=== PATIENT | female | born 1980 ===

== ENCOUNTER 2020-06-18 13:17 | Outpatient (REF) | payer OTHER, SELFPAY | END 2020-06-18 13:18 | disposition home or self-care (01) | LOC: HO.LAB 13:17 | PROVIDERS: Visit Provider Nurse Practitioner Family | DX: Z20.828 Contact with and (suspected) exposure to other viral communicable diseases (principal); J01.10 Acute frontal sinusitis, unspecified | CPT/HCPCS: U0003 ==

== ENCOUNTER → 2020-06-24 13:23 | Outpatient (BNVA) | payer OTHER, SELFPAY | PROVIDERS: PCP Internal Medicine; Visit Provider Dietitian, Registered | DX: Z76.89 Persons encountering health services in other specified circumstances (principal) ==

== ENCOUNTER → 2020-07-14 12:56 | Outpatient (BNVA) | payer OTHER, SELFPAY | PROVIDERS: PCP Internal Medicine; Visit Provider Surgery | DX: R22.0 Localized swelling, mass and lump, head (principal) | CPT/HCPCS: 99202 ==

== ENCOUNTER → 2020-07-31 12:40 | Outpatient (BNVA) | payer OTHER, SELFPAY | PROVIDERS: PCP Internal Medicine; Visit Provider Dietitian, Registered | DX: Z76.89 Persons encountering health services in other specified circumstances (principal) ==

== ENCOUNTER → 2020-08-28 12:49 | Outpatient (BNVA) | payer OTHER, SELFPAY | PROVIDERS: PCP Nurse Practitioner Family; Visit Provider Dietitian, Registered ==

== ENCOUNTER 2020-09-03 15:46 | Outpatient (REF) | payer OTHER, SELFPAY | END 2020-09-03 15:47 | disposition home or self-care (01) | LOC: HO.LAB 15:46 | PROVIDERS: Visit Provider Nurse Practitioner Family | DX: R30.0 Dysuria (principal) | CPT/HCPCS: 87086 ==

== ENCOUNTER → 2020-09-29 13:22 | Outpatient (BNVA) | payer OTHER, SELFPAY | PROVIDERS: PCP Internal Medicine; Visit Provider Dietitian, Registered ==

== ENCOUNTER 2020-11-06 10:19 | Outpatient (REF) | payer OTHER, SELFPAY ==
[2020-11-06 12:26] LABS: Anion Gap 11 (12-20); Blood Urea Nitrogen 14 mg/dL (9-16); Calcium 9.2 mg/dL (8.4-10.2); Carbon Dioxide 26 mmol/L (22-29); Chloride 105 mmol/L (96-108); Cholesterol 174 mg/dL; Estimated Glomerular Filt Rate > 60; Glucose Fasting 77 mg/dL (60-99); HDL Cholesterol 59 mg/dL; LDL Cholesterol Calculated 108 mg/dl; Potassium 4.6 mmol/L (3.3-5.1); Sodium 137 mmol/L (135-145); Triglycerides 37 mg/dL
== END 2020-11-06 10:20 | disposition home or self-care (01) ==
LOC: HO.HMGCLDS 10:19
PROVIDERS: PCP Internal Medicine; Visit Provider Internal Medicine
DX: Z00.01 Encounter for general adult medical examination with abnormal findings (principal); I10 Essential (primary) hypertension; E66.01 Morbid (severe) obesity due to excess calories
CPT/HCPCS: 36415; 80048; 80061

== ENCOUNTER → 2020-11-17 13:29 | Outpatient (BNVA) | payer OTHER, SELFPAY | PROVIDERS: PCP Internal Medicine; Visit Provider Dietitian, Registered | DX: E66.01 Morbid (severe) obesity due to excess calories (principal); I10 Essential (primary) hypertension | CPT/HCPCS: 97803 ==

== ENCOUNTER → 2020-12-17 12:44 | Outpatient (BNVA) | payer OTHER, SELFPAY | PROVIDERS: PCP Internal Medicine; Referring Provider Internal Medicine; Visit Provider Surgery | DX: R22.0 Localized swelling, mass and lump, head (principal) | CPT/HCPCS: 99212 ==

== ENCOUNTER 2020-12-18 15:23 | Outpatient (REF) | payer OTHER, SELFPAY ==
--- NOTE | ~2020-12-18 | MM_ITS ---
EXAMINATION: MM SCREENING DIGITAL BREAST TOMOSYNTHESIS, BILATERAL CLINICAL INFORMATION: Screening. Asymptomatic. The lifetime risk of breast cancer based on the Tyrer-Cuzick Model is 8.2%. COMPARISON: Mammography: None TECHNIQUE: Digital breast tomosynthesis is performed in both the craniocaudal and mediolateral oblique views along with computer-aided detection (CAD). Synthesized 2D images are generated from the tomosynthesis. FINDINGS: The breasts are heterogeneously dense, which may obscure small masses (ACR BI-RADS breast composition Category c). There are no significant masses, abnormal calcifications, or other abnormalities. MM/MM tomosynthesis screening BI IMPRESSION: There are no significant changes from prior study. ASSESSMENT: BI-RADS 1: Negative RECOMMENDATION: Routine annual mammography screening. This patient's information was entered into a reminder system with a target due date for their next mammogram.
== END 2020-12-18 15:24 | disposition home or self-care (01) ==
LOC: HO.MAMMO 15:23
PROVIDERS: PCP Internal Medicine; Visit Provider Internal Medicine
DX: Z12.31 Encounter for screening mammogram for malignant neoplasm of breast (principal)
CPT/HCPCS: 77063; 77067

== ENCOUNTER → 2020-12-23 13:04 | Outpatient (BNVA) | payer OTHER, SELFPAY | PROVIDERS: PCP Internal Medicine; Visit Provider Dietitian, Registered | DX: Z13.89 Encounter for screening for other disorder (principal) | CPT/HCPCS: 97803 ==

== ENCOUNTER 2020-12-24 09:12 | Outpatient (REF) | payer OTHER, SELFPAY ==
[2020-12-28 08:36] LABS: HPV mRNA E6/E7 rflx Not Detected (Not Detected)
== END 2020-12-24 09:13 | disposition home or self-care (01) ==
LOC: HO.LAB 09:12
PROVIDERS: PCP Internal Medicine; Visit Provider Obstetrics & Gynecology
DX: Z01.411 Encounter for gynecological examination (general) (routine) with abnormal findings (principal); N85.2 Hypertrophy of uterus
CPT/HCPCS: 87624; 88142

== ENCOUNTER 2020-12-30 14:37 | Outpatient (REF) | payer OTHER, SELFPAY ==
[2020-12-31 09:16] LABS: HBS Num1 0.18 mIU/mL (0-7.99); HIV AB/AG Nonreactive (Nonreactive); HIV Num 1 0.06 S/CO (0.00-0.99); ~Hepatitis B Surface Antibody NONREACTIVE (Nonreactive)
[2020-12-31 09:56] LABS: HBc Num1 0.09 S/CO (0.00-0.79); HBsAGNum1 0.21 S/CO (0.00-0.99); Hepatitis B Core Antibody Nonreactive (Nonreactive); Hepatitis B Surface Antigen Negative (Negative); ~HepC Num1 0.09 S/CO (0.00-0.79); ~Hepatitis C Antibody Nonreactive (Nonreactive)
== END 2020-12-30 14:38 | disposition home or self-care (01) ==
LOC: HO.HMGCLDS 14:37
PROVIDERS: PCP Internal Medicine; Visit Provider Internal Medicine
DX: Z01.84 Encounter for antibody response examination (principal); Z11.3 Encounter for screening for infections with a predominantly sexual mode of transmission; Z11.4 Encounter for screening for human immunodeficiency virus [HIV]; Z20.5 Contact with and (suspected) exposure to viral hepatitis
CPT/HCPCS: 36415; 86704; 86706; 86803; 87340; 87389

== ENCOUNTER 2021-01-01 11:01 | Outpatient (REF) | payer OTHER, SELFPAY ==
--- NOTE | ~2021-01-01 | US_ITS ---
EXAMINATION: US PELVIS AND TRANSVAGINAL CLINICAL INFORMATION: Hypertrophy of the uterus COMPARISON: None TECHNIQUE: Transabdominal and transvaginal ultrasound of the pelvis is performed. FINDINGS: On transabdominal ultrasound, the uterus is anteverted and anteflexed measuring 9.0 cm in length, 4.7 cm in AP and 5.6 cm in transverse dimension. The endometrial thickness measures 1.1 cm. There are small non shadowing echogenic polyps in the fundal endometrial canal measuring 0.60 x 0.44 x 0.50 cm. The uterus is homogeneous without any focal lesion. There are small anechoic nabothian cysts seen in the cervix Right ovary measures 3.4 x 2.9 x 2.6 cm and volume 13.87 cm. It appears unremarkable. The left ovary measures 3.66 x 2.06 x 3.13 cm and volume 12.36 cm. There is no free fluid in the cul-de-sac. US/US pelvic and transvaginal IMPRESSION: 1. Small endometrial polyp. 2. Small nabothian cysts in the cervix. 3. Ovaries are unremarkable.
== END 2021-01-01 11:02 | disposition home or self-care (01) ==
LOC: HO.US 11:01
PROVIDERS: PCP Internal Medicine; Visit Provider Obstetrics & Gynecology
DX: N85.2 Hypertrophy of uterus (principal)
CPT/HCPCS: 76830; 76856

== ENCOUNTER 2021-01-08 13:35 | Outpatient (REF) | payer OTHER, SELFPAY ==
[2021-01-08 13:48] VITALS: BP 150/87; PULSE 107; RESP 16; TEMP 37.2; O2SAT 99
== END 2021-01-08 13:36 | disposition home or self-care (01) ==
LOC: HO.MS 13:35
PROVIDERS: PCP Internal Medicine; Visit Provider Surgery
DX: R22.0 Localized swelling, mass and lump, head (principal); Z53.9 Procedure and treatment not carried out, unspecified reason

== ENCOUNTER → 2021-01-15 10:37 | Outpatient (BNVA) | payer OTHER, SELFPAY | PROVIDERS: PCP Internal Medicine; Visit Provider Obstetrics & Gynecology ==

== ENCOUNTER 2021-01-29 11:57 | Outpatient (REF) | payer OTHER, SELFPAY ==
[2021-01-29 12:39] VITALS: BP 159/94; PULSE 118; RESP 16; TEMP 36.7; O2SAT 100; BMI 41.1
[2021-01-29 13:05] VITALS: BP 158/64; PULSE 89; RESP 16; O2SAT 99
--- NOTE | 2021-01-29 13:20 | W.PM.OPN ---
Operative Note Operative Note Date of Service: 01/29/21 Narrative: Preop diagnosis: Large scalp cyst Postop diagnosis: Large scalp cyst Procedure: Excision a large scalp cyst under local anesthesia surgeon: Juan Manuel Garriod MD The patient is a 40-year-old female with a large cystic mass on the scalp on the left parieto-occipital area. She understood the technique of excision under local anesthesia. She was aware of the risks, benefits, and alternatives She was brought to the minor procedure room and placed in prone position with the head turned to the left to expose the area of the cyst. The area of the scalp around the cyst was prepped and draped. The cyst measured diameter. Lidocaine 1% was used to infiltrate the area for local anesthesia. I made an incision on the skin overlying the large cyst using blade 15. And this was carried down through the full-thickness of the skin and part of subcutaneous layer. Immediately, a well encapsulated cystic mass was visualized. I sharply dissected the cyst capsule off of the rest of the subcutaneous layer all the way posteriorly until this was delivered. This was sent as specimen. There was excessive redundant skin after excision of this large cyst so I trimmed this with scissors. I closed the incision with full-thickness nylon 3-0 interrupted sutures. Bacitracin was then applied She tolerated procedure well. There were no complications noted. She was given wound care instructions and will be seen in the office for removal of sutures.
--- NOTE | 2021-01-29 13:24 | PM.OP ---
Brief Operative Note Date of Service: 01/29/21 Pre-op diagnosis: Large scalp cyst Post-op diagnosis: same Procedure: excision of large scalp cyst under local anesthesia Surgeon: Juan Manuel Garrido MD Anesthesia: local Was an Financial Processing Clerk used for this Procedure?: No Estimated blood loss (mL): 3 Pathology: other ( scalp cyst) Condition: stable Disposition: other ( home)
== END 2021-01-29 11:58 | disposition home or self-care (01) ==
LOC: HO.MS 11:57
PROVIDERS: PCP Internal Medicine; Visit Provider Surgery
PROC: (CPT 11424; principal; 2021-01-29 12:50)
DX: L72.11 Pilar cyst (principal); I10 Essential (primary) hypertension; Z79.899 Other long term (current) drug therapy; Z88.8 Allergy status to other drugs, medicaments and biological substances; Z87.891 Personal history of nicotine dependence
CPT/HCPCS: 11424; 88304

== ENCOUNTER → 2021-02-10 09:18 | Outpatient (BNVA) | payer OTHER, SELFPAY | PROVIDERS: PCP Internal Medicine; Referring Provider Internal Medicine; Visit Provider Surgery | DX: Z48.817 Encounter for surgical aftercare following surgery on the skin and subcutaneous tissue (principal); Z87.2 Personal history of diseases of the skin and subcutaneous tissue | CPT/HCPCS: 99211 ==

== ENCOUNTER 2021-02-12 14:08 | Outpatient (REF) | payer OTHER, SELFPAY ==
[2021-02-12 16:33] LABS: Hematocrit 33.9 % (37-47); Hemoglobin 10.9 g/dl (12.0-16.0)
== END 2021-02-12 14:09 | disposition home or self-care (01) ==
LOC: HO.HMGCLDS 14:08
PROVIDERS: PCP Internal Medicine; Visit Provider Internal Medicine
DX: R53.83 Other fatigue (principal)
CPT/HCPCS: 36415; 85014; 85018

== ENCOUNTER → 2021-02-18 13:23 | Outpatient (BNVA) | payer OTHER, SELFPAY | PROVIDERS: PCP Internal Medicine; Visit Provider Obstetrics & Gynecology | DX: N84.0 Polyp of corpus uteri (principal) | CPT/HCPCS: 99212 ==

== ENCOUNTER 2021-03-13 09:26 | Day surgery (SDC) | payer OTHER, SELFPAY ==
--- NOTE | 2021-02-05 09:08 | HO.ANESPROP2 ---
HPI - Anesthesia Eval Consult details Narrative: 40yo F for D&C Diagnostic Hysteroscopy,poss polypectomy/myomectomy PMFSH Active Problems Active Problems: All Active Problems (Updated 01/29/21 @ 13:26 by Edd Avelar RN) Enlarged uterus (Acute) Endometrial polyp (Acute) Allergic rhinitis (Acute) Morbid obesity due to excess calories (Acute) Essential hypertension (Acute) GERD (gastroesophageal reflux disease) (Acute) Past Medical History Medical History (Updated 01/29/21 @ 13:26 by Edd Avelar RN) Allergic rhinitis Asthma Essential hypertension GERD (gastroesophageal reflux disease) Morbid obesity due to excess calories Family History Family History Father Colon cancer Mother HTN (hypertension) Stroke Brother Encephalitis Brother No problems noted. Daughter No problems noted. Daughter No problems noted. Maternal Uncle History of liver cancer Surgical History Surgical History History of excision of mass History of tubal ligation Social History Social History Alcohol intake: current Alcohol intake frequency: holidays/special occasions only Patient Tobacco Use Status: Former Tobacco user Years Smoked: 2 Meds Allergies Allergy/AdvReac Type Severity Reaction Status Date / Time montelukast [From Singulair] Allergy Unknown Anaphylaxis, Verified 01/15/21 10:37 rash peanut Allergy Anaphylaxis Verified 01/15/21 10:37 strawberry Allergy rash Verified 01/15/21 10:37 wheat Allergy rash Verified 01/15/21 10:37 milk AdvReac rash Verified 01/15/21 10:37 soy AdvReac Abdominal Verified 01/15/21 10:37 Pain eggs Allergy rash Uncoded 09/05/20 15:04 Home Medications Medication Instructions Recorded Confirmed Last Taken Type albuterol sulfate 90 mcg/actuation 1 puff PO Q4H PRN 05/30/20 12/30/20 Unknown History aerosol inhaler hydroxyzine HCl 25 mg tablet 25 mg PO TID 12/30/20 12/30/20 Unknown History Exam Exam Date and Time: February 05, [id number] Assessment and Plan Assessment Anesthesia Assessment: Chart Reviewed
[2021-03-05 14:41] VITALS: BMI 41.1
--- NOTE | 2021-03-12 08:41 | P.CONAN_ITS ---
Documented by User: Aracely Garnica NP 03/12/21 08:42 HPI - Anesthesia Eval Consult details Narrative: 40yo F for D&C Hysteroscopy, Poss Polypectomy, Poss Myomectomy PMFSH Active Problems Active Problems: All Active Problems (Updated 02/13/21 @ 23:51 by Teresa Maddox MD) Anemia (Acute) Enlarged uterus (Acute) Endometrial polyp (Acute) Allergic rhinitis (Acute) Morbid obesity due to excess calories (Acute) Essential hypertension (Acute) GERD (gastroesophageal reflux disease) (Acute) Past Medical History Medical History Allergic rhinitis Anemia Asthma Essential hypertension GERD (gastroesophageal reflux disease) Morbid obesity due to excess calories Family History Family History Father Colon cancer Mother HTN (hypertension) Stroke Brother Encephalitis Brother No problems noted. Daughter No problems noted. Daughter No problems noted. Maternal Uncle History of liver cancer Surgical History Surgical History History of excision of mass History of tubal ligation Social History Social History Alcohol intake: current Alcohol intake frequency: holidays/special occasions only Patient Tobacco Use Status: Former Tobacco user Years Smoked: 2 Advance Directives: No Advance Directives Information Provided: Yes Meds Allergies Allergy/AdvReac Type Severity Reaction Status Date / Time montelukast [From Singulair] Allergy Unknown Anaphylaxis, Verified 02/10/21 09:25 rash peanut Allergy Anaphylaxis Verified 02/10/21 09:25 strawberry Allergy rash Verified 02/10/21 09:25 wheat Allergy rash Verified 02/10/21 09:25 milk AdvReac rash Verified 02/10/21 09:25 soy AdvReac Abdominal Verified 02/10/21 09:25 Pain eggs Allergy rash Uncoded 09/05/20 15:04 Home Medications Medication Instructions Recorded Confirmed Last Taken Type albuterol sulfate 90 mcg/actuation 1 puff PO Q4H PRN 05/30/20 02/10/21 Unknown History aerosol inhaler hydroxyzine HCl 25 mg tablet 25 mg PO TID 12/30/20 02/10/21 Unknown History Exam Exam Date and Time: March 12, 2021 0841 Height,Weight and Vital Signs: Height 5 ft 4 in Weight 108.862 kg Pertinent Lab Results Pertinent Lab Results: Laboratory Tests 11/06/20 02/12/21 10:27 14:16 Hgb 10.9 L Hct 33.9 L Sodium 137 Potassium 4.6 Chloride 105 Carbon Dioxide 26 BUN 14 Creatinine 0.75 Assessment and Plan Assessment Anesthesia Assessment: Chart Reviewed Documented by User: Connie Reardon MD 03/13/21 10:21 [facility] Past Medical History Medical History Allergic rhinitis Anemia Asthma Essential hypertension GERD (gastroesophageal reflux disease) Morbid obesity due to excess calories Family History Family History Father Colon cancer Mother HTN (hypertension) Stroke Brother Encephalitis Brother No problems noted. Daughter No problems noted. Daughter No problems noted. Maternal Uncle History of liver cancer Family history of problems with anesthesia: No Surgical History Surgical History History of excision of mass History of tubal ligation History of Problems with Anesthesia: No Social History Social History Alcohol intake: current Alcohol intake frequency: holidays/special occasions only Patient Tobacco Use Status: Former Tobacco user Years Smoked: 2 Advance Directives: No Advance Directives Information Provided: Yes Meds Allergies Allergy/AdvReac Type Severity Reaction Status Date / Time montelukast [From Singulair] Allergy Unknown Anaphylaxis, Verified 02/10/21 09:25 rash peanut Allergy Anaphylaxis Verified 02/10/21 09:25 strawberry Allergy rash Verified 02/10/21 09:25 wheat Allergy rash Verified 02/10/21 09:25 milk AdvReac rash Verified 02/10/21 09:25 soy AdvReac Abdominal Verified 02/10/21 09:25 Pain eggs Allergy rash Uncoded 09/05/20 15:04 Home Medications Medication Instructions Recorded Confirmed Last Taken Type albuterol sulfate 90 mcg/actuation 1 puff PO Q4H PRN 05/30/20 02/10/21 Unknown History aerosol inhaler hydroxyzine HCl 25 mg tablet 25 mg PO TID 12/30/20 02/10/21 Unknown History Exam Airway Mallampati Class: II TM Dist: >3cm Neck ROM: Full Assessment and Plan Assessment Anesthesia Assessment: Anesthesia Plan Discussed Final Anesthetic Review Family History of Problems with Anesthesia: No History of Problems with Anesthesia: No NPO: Yes ASA Class: III Final Preanesthetic Review: No Changes in Pt Med Stat, Meds/Allgs Chart Reviewed, Consent Obtained/Reviewed and Anes Risks/Benef Reviewed Patient Risk: Low Procedure Risk: Low Assessment/Block/Sedation in SS: Assess/Block/Sedation-SS Anesthetic Plan Anesthetic Plan: GA and MAC: Disposition: Standard PACU
--- NOTE | 2021-03-13 09:41 | MHC.SHP ---
Pre-Procedural Eval Section A Date of Service: 03/13/21 The patient is an INPATIENT: No Changes since office visit: No Cold of Flu in the past 2 weeks, No New Medical Problems, No Changes in Medication and No Patient answered all questions The History & Physical has been completed within 30 days and I have reviewed it.: Yes Section B Chief Complaint: polyp of corpus uteri Allergies: Allergies Allergy/AdvReac Type Severity Reaction Status Date / Time montelukast [From Singulair] Allergy Unknown Anaphylaxis, Verified 02/10/21 09:25 rash peanut Allergy Anaphylaxis Verified 02/10/21 09:25 strawberry Allergy rash Verified 02/10/21 09:25 wheat Allergy rash Verified 02/10/21 09:25 milk AdvReac rash Verified 02/10/21 09:25 soy AdvReac Abdominal Verified 02/10/21 09:25 Pain eggs Allergy rash Uncoded 09/05/20 15:04 Plan Diagnosis/Plan: Unchanged I have reviewed the history and physical and performed a pertinent physical examination on my patient. No changes have occurred unless specified.
[2021-03-13 09:46] VITALS: BP 129/58; PULSE 125; RESP 16; TEMP 37.1; O2SAT 98
[2021-03-13 09:56] LABS: UPreg QC Valid YES; Urine Pregnancy NEGATIVE (NEGATIVE)
[2021-03-13] MEDS: Lactated Ringers 1,000 ML 100 ML IVCONT (09:58)
--- NOTE | 2021-03-13 10:37 | P.BOP_ITS ---
Brief Operative Note Date of Service: 03/13/21 Pre-op diagnosis: Endometrial polyp by ultrasound Post-op diagnosis: other (Normal endometrial cavity no evidence of pathology) Procedure: Hysteroscopy D&C Surgeon: Javan Harris MD Anesthesia: MAC Was an Associate Account Manager used for this Procedure?: No Estimated blood loss (mL): 0 Pathology: other (Endometrial Scrapping. ) Condition: stable Disposition: PACU
--- NOTE | 2021-03-13 10:38 | W.PM.OPN ---
Operative Note Operative Note Date of Service: 03/13/21 Narrative: Preop Diagnosis: Endometrial polyp by US Operation: Diagnostic Hysteroscopy, Dilataion & Curettage Post Op Diagnosis: Normal endometrial cavity no evidence of pathology QBL: Minimal Anesthesia: MAC Surgeon: Javan Harris MD Gasoline Catalyst Operator: None Complication: None Pathology: Endometrial Scrapings Complication: None Pathology: Endometrial Scrapings Procedure: The patient was put in the dorsal lithotomy position, scrubbed, and draped in the usual manner. A sterile speculum was inserted in the patient's vagina. The anterior lip of the cervix was grasped with a single tooth tenaculum. The cervix was dilated up to 5 mm, then the scope was inserted in the patient's uterus. Inspection revealed normal endometrial cavity no evidence of pathology, this was followed by sharp curettings moderate amount of tissue was retrieved. At the end of the procedure, all instruments were taken out of the patient uterine and vaginal cavity. The single tooth tenaculum was removed and homeostasis was assured using pressure,. The patient tolerated the procedure well and was transferred to the PACU in a stable condition.
[2021-03-13 10:44] VITALS: BP 112/60; PULSE 106; RESP 16; TEMP 36.1; O2SAT 99
[2021-03-13 10:59] VITALS: BP 110/59; PULSE 88; RESP 16; TEMP 36.1; O2SAT 99
== END 2021-03-13 11:38 | disposition home or self-care (01) ==
PROVIDERS: PCP Internal Medicine; Visit Provider Obstetrics & Gynecology
PROC: 0UDB8ZZ Extraction of Endometrium, Via Natural or Artificial Opening Endoscopic (ICD-10-PCS; CPT 58558; principal; 2021-03-13 11:10)
DX: N84.0 Polyp of corpus uteri (principal); J45.909 Unspecified asthma, uncomplicated; D64.9 Anemia, unspecified; I10 Essential (primary) hypertension; E66.01 Morbid (severe) obesity due to excess calories; Z68.41 Body mass index [BMI] 40.0-44.9, adult; Z87.891 Personal history of nicotine dependence; Z88.8 Allergy status to other drugs, medicaments and biological substances; Z79.899 Other long term (current) drug therapy
CPT/HCPCS: 58558; 81025; 88305; J1100; J2250; J2405; J3010

== ENCOUNTER 2021-05-18 12:41 | Outpatient (REF) | payer OTHER, SELFPAY ==
[2021-05-18 13:44] LABS: MANUAL DIFF FLAG NO
[2021-05-18 13:47] LABS: Basophils Percent Auto 0.3 % (0-2); Eosinophils Absolute Auto 0.1 X10*3/uL (0.0-0.4); Eosinophils Percent Auto 0.8 % (0-4); Hematocrit 35.3 % (37-47); Hemoglobin 11.4 g/dl (12.0-16.0); Imm Gran Abs Auto 0.03 X10*3/uL (0.00-0.03); Imm Gran Pct Auto 0.4 % (0.0-0.4); Lymphocytes Absolute Auto 2.1 X10*3/uL (1.2-4.9); Lymphocytes Percent Auto 28.1 % (20-40); Mean Corpuscular HGB Conc 32.3 g/dl (31.0-35.0); Mean Corpuscular Hemoglobin 27.1 pg (27.0-33.0); Mean Corpuscular Volume 83.8 fL (80-98); Monocytes Absolute Auto 0.6 X10*3/uL (0.1-1.2); Monocytes Percent Auto 8.2 % (2-11); Neutrophils Absolute Auto 4.6 X10*3/uL (2.0-8.3); Neutrophils Percent Auto 62.2 % (45-73); Platelet Count 381 X10*3/uL (160-400); Red Blood Count 4.21 X10*6/uL (4.20-5.50); Red Cell Distribution Width 14.4 % (11.0-16.0); White Blood Count 7.5 X10*3/uL (4.8-10.8)
[2021-05-18 14:10] LABS: Iron 24 mcg/dL (30-160); Percent Iron Saturation 7 % (15-50); Total Iron Binding Capacity 330 mcg/dL (228-428); Unsaturated Iron Binding 306 ug/dL
[2021-05-18 14:33] LABS: Ferritin 14 ng/mL (10-250)
== END 2021-05-18 12:42 | disposition home or self-care (01) ==
LOC: HO.HMGCLDS 12:41
PROVIDERS: PCP Internal Medicine; Visit Provider Internal Medicine
DX: D64.9 Anemia, unspecified (principal)
CPT/HCPCS: 36415; 82728; 83540; 85025

== ENCOUNTER 2021-06-08 | Outpatient (REF) | payer OTHER, SELFPAY ==
[2021-06-09 14:04] LABS: Influenza A PCR NEGATIVE (Negative); Influenza B PCR NEGATIVE (Negative); Resp Syncy Virus RNA Qual PCR NEGATIVE (Negative); SARS COV2 PCR INHOUSE NEGATIVE (Negative)
== END 2021-06-08 00:01 | disposition home or self-care (01) ==
LOC: HO.LNP
PROVIDERS: Visit Provider Internal Medicine
DX: Z20.822 Contact with and (suspected) exposure to COVID-19 (principal); R43.9 Unspecified disturbances of smell and taste
CPT/HCPCS: 0241U

== ENCOUNTER 2021-06-09 12:36 | Outpatient (REF) | payer OTHER, SELFPAY | END 2021-06-09 12:37 | disposition home or self-care (01) | LOC: HO.LNP 12:36 | PROVIDERS: Visit Provider Internal Medicine | DX: Z13.89 Encounter for screening for other disorder (principal) ==

== ENCOUNTER 2021-07-10 13:31 | Outpatient (REF) | payer OTHER, SELFPAY ==
[2021-07-10 14:19] LABS: MANUAL DIFF FLAG NO
[2021-07-10 14:25] LABS: Basophils Percent Auto 0.4 % (0-2); Eosinophils Absolute Auto 0.1 X10*3/uL (0.0-0.4); Eosinophils Percent Auto 0.7 % (0-4); Hematocrit 35.9 % (37.0-47.0); Hemoglobin 11.4 g/dl (12.0-16.0); Imm Gran Abs Auto 0.02 X10*3/uL (0.00-0.03); Imm Gran Pct Auto 0.2 % (0.0-0.4); Lymphocytes Absolute Auto 2.5 X10*3/uL (1.2-4.9); Lymphocytes Percent Auto 29.7 % (20-40); Mean Corpuscular HGB Conc 31.8 g/dl (31.0-35.0); Mean Corpuscular Hemoglobin 27.3 pg (27.0-33.0); Mean Corpuscular Volume 86.1 fL (80.0-98.0); Mean Platelet Volume 9.7 fL (9.4-12.3); Monocytes Absolute Auto 0.7 X10*3/uL (0.1-1.2); Monocytes Percent Auto 8.5 % (2-11); Neutrophils Percent Auto 60.5 % (45-73); Platelet Count 368 X10*3/uL (160-400); Red Blood Count 4.17 X10*6/uL (4.20-5.50); White Blood Count 8.3 X10*3/uL (4.8-10.8)
[2021-07-10 14:52] LABS: Iron 34 mcg/dL (30-160); Percent Iron Saturation 11 % (15-50); Total Iron Binding Capacity 308 mcg/dL (228-428); Unsaturated Iron Binding 274 ug/dL
== END 2021-07-10 13:32 | disposition home or self-care (01) ==
LOC: HO.HMGCLDS 13:31
PROVIDERS: PCP Internal Medicine; Visit Provider Internal Medicine
DX: D50.9 Iron deficiency anemia, unspecified (principal)
CPT/HCPCS: 36415; 83540; 85025

== ENCOUNTER 2021-10-30 09:51 | Outpatient (REF) | payer OTHER, SELFPAY ==
[2021-10-30 11:43] LABS: MANUAL DIFF FLAG NO
[2021-10-30 11:52] LABS: Basophils Percent Auto 0.5 % (0-2); Eosinophils Absolute Auto 0.1 X10*3/uL (0.0-0.4); Eosinophils Percent Auto 1.4 % (0-4); Hematocrit 37.7 % (37.0-47.0); Hemoglobin 12.2 g/dl (12.0-16.0); Imm Gran Abs Auto 0.03 X10*3/uL (0.00-0.03); Imm Gran Pct Auto 0.5 % (0.0-0.4); Lymphocytes Absolute Auto 2.1 X10*3/uL (1.2-4.9); Lymphocytes Percent Auto 34.9 % (20-40); Mean Corpuscular HGB Conc 32.4 g/dl (31.0-35.0); Mean Corpuscular Hemoglobin 27.7 pg (27.0-33.0); Mean Corpuscular Volume 85.7 fL (80.0-98.0); Mean Platelet Volume 9.8 fL (9.4-12.3); Monocytes Absolute Auto 0.4 X10*3/uL (0.1-1.2); Monocytes Percent Auto 7.2 % (2-11); Neutrophils Absolute Auto 3.3 x10*3/uL (2.0-8.3); Neutrophils Percent Auto 55.5 % (45-73); Platelet Count 389 X10*3/uL (160-400); Red Cell Distribution Width 13.7 % (11.0-16.0); White Blood Count 5.9 X10*3/uL (4.8-10.8)
[2021-10-30 12:03] LABS: Alanine Aminotransferase 45 U/L (0-31); Anion Gap 10 (12-20); Aspartate Amino Transferase 21 U/L (5-31); Blood Urea Nitrogen 16 mg/dL (9-16); Calcium 9.3 mg/dL (8.4-10.2); Carbon Dioxide 28 mmol/L (22-29); Chloride 105 mmol/L (96-108); Cholesterol 182 mg/dL; Estimated Glomerular Filt Rate > 60; Glucose Fasting 78 mg/dL (60-99); HDL Cholesterol 51 mg/dL; Iron 48 mcg/dL (30-160); LDL Cholesterol Calculated 121 mg/dl; Percent Iron Saturation 15 % (15-50); Sodium 138 mmol/L (135-145); Total Iron Binding Capacity 310 mcg/dL (228-428); Triglycerides 50 mg/dL; Unsaturated Iron Binding 262 ug/dL
== END 2021-10-30 09:52 | disposition home or self-care (01) ==
LOC: HO.HMGCLDS 09:51
PROVIDERS: PCP Internal Medicine; Visit Provider Internal Medicine
DX: D50.9 Iron deficiency anemia, unspecified (principal); E66.01 Morbid (severe) obesity due to excess calories; I10 Essential (primary) hypertension; K21.9 Gastro-esophageal reflux disease without esophagitis
CPT/HCPCS: 36415; 80048; 80061; 83540; 84450; 84460; 85025

== ENCOUNTER 2022-01-14 11:36 | Outpatient (REF) | payer OTHER, SELFPAY ==
[2022-01-17 18:06] LABS: TS Negative Control Passed; TS Panel A 2; TS Panel B 0; TS Positive Control Passed; TSpotTB Negative (Negative)
== END 2022-01-14 11:37 | disposition home or self-care (01) ==
LOC: HO.HMGCLDS 11:36
PROVIDERS: PCP Internal Medicine; Visit Provider Internal Medicine
DX: Z11.1 Encounter for screening for respiratory tuberculosis (principal)
CPT/HCPCS: 36415; 86481

== ENCOUNTER 2022-05-06 08:35 | Outpatient (REF) | payer OTHER, SELFPAY ==
[2022-05-06 10:57] LABS: MANUAL DIFF FLAG NO
[2022-05-06 11:11] LABS: Basophils Percent Auto 0.7 % (0-2); Eosinophils Absolute Auto 0.1 X10*3/uL (0.0-0.4); Eosinophils Percent Auto 1.7 % (0-4); Hematocrit 36.3 % (37.0-47.0); Hemoglobin 11.6 g/dl (12.0-16.0); Imm Gran Abs Auto 0.01 X10*3/uL (0.00-0.03); Imm Gran Pct Auto 0.2 % (0.0-0.4); Lymphocytes Absolute Auto 1.6 X10*3/uL (1.2-4.9); Lymphocytes Percent Auto 28.3 % (20-40); Mean Corpuscular Hemoglobin 25.9 pg (27.0-33.0); Mean Platelet Volume 9.9 fL (9.4-12.3); Monocytes Absolute Auto 0.4 X10*3/uL (0.1-1.2); Monocytes Percent Auto 7.5 % (2-11); Neutrophils Absolute Auto 3.6 x10*3/uL (2.0-8.3); Neutrophils Percent Auto 61.6 % (45-73); Platelet Count 412 X10*3/uL (160-400); Red Blood Count 4.48 X10*6/uL (4.20-5.50); Red Cell Distribution Width 14.8 % (11.0-16.0); White Blood Count 5.8 X10*3/uL (4.8-10.8)
[2022-05-06 11:59] LABS: Cholesterol 181 mg/dL; Glucose Fasting 79 mg/dL (60-99); HDL Cholesterol 57 mg/dL; LDL Cholesterol Calculated 114 mg/dl; TSH reflex Free T4 1.17 uIU/mL (0.32-4.0); Triglycerides 50 mg/dL; Vitamin D 25-OH Total 19.5 ng/mL (>30)
== END 2022-05-06 08:36 | disposition home or self-care (01) ==
LOC: HO.HMGCLDS 08:35
PROVIDERS: PCP Internal Medicine; Visit Provider Internal Medicine
DX: Z00.01 Encounter for general adult medical examination with abnormal findings (principal); E66.01 Morbid (severe) obesity due to excess calories; R53.83 Other fatigue; I10 Essential (primary) hypertension
CPT/HCPCS: 36415; 80061; 82306; 82947; 84443; 85025

== ENCOUNTER 2022-08-26 11:23 | Outpatient (REF) | payer OTHER, SELFPAY ==
[2022-08-26 14:45] LABS: Vitamin D 25-OH Total 22.5 ng/mL (>30)
== END 2022-08-26 11:24 | disposition home or self-care (01) ==
LOC: HO.HMGCLDS 11:23
PROVIDERS: PCP Internal Medicine; Visit Provider Internal Medicine
DX: E55.9 Vitamin D deficiency, unspecified (principal)
CPT/HCPCS: 36415; 82306

== ENCOUNTER 2022-09-09 11:31 | Outpatient (REF) | payer OTHER, SELFPAY ==
[2022-09-09 13:52] LABS: MANUAL DIFF FLAG NO
[2022-09-09 14:01] LABS: Basophils Percent Auto 0.4 % (0-2); Eosinophils Absolute Auto 0.1 X10*3/uL (0.0-0.4); Eosinophils Percent Auto 1.2 % (0-4); Hematocrit 38.6 % (37.0-47.0); Hemoglobin 12.4 g/dl (12.0-16.0); Imm Gran Abs Auto 0.02 X10*3/uL (0.00-0.03); Imm Gran Pct Auto 0.3 % (0.0-0.4); Lymphocytes Absolute Auto 2.1 X10*3/uL (1.2-4.9); Lymphocytes Percent Auto 30.3 % (20-40); Mean Corpuscular HGB Conc 32.1 g/dl (31.0-35.0); Mean Corpuscular Hemoglobin 27.6 pg (27.0-33.0); Mean Platelet Volume 10.1 fL (9.4-12.3); Monocytes Absolute Auto 0.6 X10*3/uL (0.1-1.2); Monocytes Percent Auto 8.2 % (2-11); Neutrophils Absolute Auto 4.1 x10*3/uL (2.0-8.3); Neutrophils Percent Auto 59.6 % (45-73); Platelet Count 349 X10*3/uL (160-400); Red Blood Count 4.49 X10*6/uL (4.20-5.50); Red Cell Distribution Width 14.1 % (11.0-16.0); White Blood Count 6.9 X10*3/uL (4.8-10.8)
[2022-09-09 14:11] LABS: Iron 55 mcg/dL (30-160); Percent Iron Saturation 21 % (15-50); Total Iron Binding Capacity 268 mcg/dL (228-428); Unsaturated Iron Binding 213 ug/dL
== END 2022-09-09 11:32 | disposition home or self-care (01) ==
LOC: HO.HMGCLDS 11:31
PROVIDERS: PCP Internal Medicine; Visit Provider Internal Medicine
DX: Z11.1 Encounter for screening for respiratory tuberculosis (principal); D50.9 Iron deficiency anemia, unspecified
CPT/HCPCS: 36415; 83540; 85025

== ENCOUNTER 2022-09-15 10:54 | Outpatient (REF) | payer OTHER, SELFPAY ==
--- NOTE | ~2022-09-15 | XR_ITS ---
EXAMINATION: XR KNEE, RIGHT CLINICAL INFORMATION: Right knee pain COMPARISON: None TECHNIQUE: Four views of the right knee. FINDINGS: Severe degenerative changes are present in the knee most marked in the lateral compartment and patellofemoral compartment. A joint effusion is present. Large osteophytes are noted arising from the lateral tibial plateau and the lateral femoral condyle as well as the posterior patella. No chondrocalcinosis. No fractures. XR/XR knee RT 4V IMPRESSION: Severe tricompartmental degenerative changes with joint effusion.
== END 2022-09-15 10:55 | disposition home or self-care (01) ==
LOC: HO.HMGCX 10:54
PROVIDERS: PCP Internal Medicine; Visit Provider Nurse Practitioner Family
DX: M23.8X1 Other internal derangements of right knee (principal); M25.461 Effusion, right knee; M25.561 Pain in right knee
CPT/HCPCS: 73564

== ENCOUNTER 2022-12-28 12:39 | Outpatient (REF) | payer OTHER, SELFPAY ==
--- NOTE | ~2022-12-28 | MM_ITS ---
EXAMINATION: MM SCREENING DIGITAL BREAST TOMOSYNTHESIS, BILATERAL CLINICAL INFORMATION: Screening. Asymptomatic. The lifetime risk of breast cancer based on the Tyrer-Cuzick Model is 8%. COMPARISON: Mammography: 12/18/2020 TECHNIQUE: Digital breast tomosynthesis is performed in both the craniocaudal and mediolateral oblique views along with computer-aided detection (CAD). Synthesized 2D images are generated from the tomosynthesis. FINDINGS: There are scattered areas of fibroglandular density (ACR BI-RADS breast composition Category b). There are no significant masses, abnormal calcifications, or other abnormalities. Parenchymal pattern is similar to prior studies. There is no developing density or architectural abnormality. The axilla and skin contours are unremarkable. No significant changes. MM/MM tomosynthesis screening BI IMPRESSION: No mammographic evidence of malignancy. ASSESSMENT: BI-RADS 1: Negative RECOMMENDATION: Routine annual mammography screening. This patient's information was entered into a reminder system with a target due date for their next mammogram.
== END 2022-12-28 12:40 | disposition home or self-care (01) ==
LOC: HO.MAMMO 12:39
PROVIDERS: PCP Internal Medicine; Visit Provider Internal Medicine
DX: Z12.31 Encounter for screening mammogram for malignant neoplasm of breast (principal)
CPT/HCPCS: 77063; 77067

== ENCOUNTER 2023-01-05 10:41 | Outpatient (REF) | payer OTHER, SELFPAY ==
[2023-01-05 14:34] LABS: Syphilis Screen Nonreactive (Nonreactive)
== END 2023-01-05 10:42 | disposition home or self-care (01) ==
LOC: HO.HMGCLDS 10:41
PROVIDERS: PCP Internal Medicine; Visit Provider Nurse Practitioner Family
DX: Z20.2 Contact with and (suspected) exposure to infections with a predominantly sexual mode of transmission (principal)
CPT/HCPCS: 36415; 86780

== ENCOUNTER 2023-03-16 10:38 | Outpatient (AMB) | payer OTHER, SELFPAY ==
[2023-03-16 11:10] VITALS: BP 130/72; PULSE 71; O2SAT 98; BMI 42.7
--- NOTE | 2023-03-16 11:10 | MHC.PC.OV ---
Vital Signs 03/16/23 11:10 Height 5 ft 4 in Weight 249 lb BMI 42.7 BP 130/72 Blood Pressure Location Lt brachial Position Sitting Pulse 71 Pulse Source Pulse Oximeter Pulse Oximetry (%) 98 Intake Visit Reasons: Discuss paperwork for housing Intake Note: pt is here for discussion regarding housing paperwork, states she needs a letter stating she can only live on first floor due to her knee, patient is currently living on 3rd floor. Allergies montelukast [From Singulair] Allergy (Unknown, Verified 03/21/23 15:59) Anaphylaxis, rash peanut Allergy (Verified 03/21/23 15:59) Anaphylaxis strawberry Allergy (Verified 03/21/23 15:59) rash wheat Allergy (Verified 03/21/23 15:59) rash lisinopril Adverse Reaction (Verified 03/21/23 15:59) cough milk Adverse Reaction (Verified 03/21/23 15:59) rash soy Adverse Reaction (Verified 03/21/23 15:59) Abdominal Pain eggs Allergy (Uncoded 03/21/23 15:59) rash seafood Adverse Reaction (Uncoded 03/21/23 15:59) rash Medication List - Last Reconciled 03/16/23 by Teresa Maddox MD albuterol sulfate 90 mcg/actuation 2 inhalations inhalation QID PRN amlodipine 5 mg PO DAILY 90 days cetirizine 10 mg PO DAILY cholecalciferol (vitamin D3) 50 mcg PO DAILY diclofenac sodium 25 mg PO BID PRN 7 days famotidine 40 mg PO DAILY ferrous fumarate 324 mg PO DAILY fluticasone propionate 50 mcg/actuation 1 spray intranasal DAILY PRN hydroxyzine HCl 25 mg PO BID PRN mometasone-formoterol 200-5 mcg/actuation (Dulera) 2 puffs inhalation Q12H 30 days Tobacco use date assessed: 09/09/22 HPI Discuss paperwork for housing HPI Details 42-year-old lady with history of osteoarthritis both knees, right more than the left, has asthma, history of iron deficiency anemia, hypertension and GERD as well as morbid obesity, here today requesting a letter to be written to her landlord, requesting transfer to an apartment on the ground floor or the 1st floor or another single family house within the [facility], as she has difficulty going up and down stairs, due to severe pain in both knees. She already has been referred to orthopedics for further evaluation management [facility] Medical History (Updated 03/21/23 @ 16:07 by Teresa Maddox MD) Allergic rhinitis Asthma Essential hypertension GERD (gastroesophageal reflux disease) Iron deficiency anemia Iron deficiency anemia Moderate asthma with allergic rhinitis Morbid obesity due to excess calories Osteoarthritis of right knee Uncontrolled persistent asthma Vitamin D deficiency Surgical History History of excision of mass History of tubal ligation Family History Father Colon cancer Mother HTN (hypertension) Stroke Brother Encephalitis Substance use disorder Mental health disorder Brother No problems noted. Daughter No problems noted. Daughter No problems noted. 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 Prateek Burkett, Lesia Rockwell, Josiah Hernandez and colleagues, with an educational teresa from [employer]. Review of Systems Const Denies poor appetite and Denies weakness ENT Denies vertigo and Denies dizziness Card Denies chest pain, Denies syncope, Denies irregular heart rhythm, Denies lightheadedness and Denies dyspnea Resp Denies cough and Denies dyspnea GI Denies abdominal pain, Denies dyspepsia, Denies heartburn and Denies nausea Denies hematuria and Denies dysuria Musc Reports as per HPI, Denies joint swelling and Denies limited range of motion Neuro Denies vertigo, Denies dizziness, Denies syncope, Denies focal weakness and Denies weakness Physical exam (Primary Care) Vital Signs: Last Vital Signs Pulse 71 03/16/23 11:10 BP 130/72 03/16/23 11:10 Pulse Ox 98 03/16/23 11:10 BMI result Body Mass Index 42.7 Tobacco/Smoking Status: Tobacco use Status Tobacco use date assessed 09/09/22 03/16/23 11:16 Patient Tobacco Use Status Former Tobacco user 03/16/23 11:16 e-Cigarette/Vaping Use Never Used 03/16/23 11:16 Thrive Assessment: Date of Thrive Assessment Date Thrive assessed 05/05/22 03/16/23 11:16 Const General: comfortable, no acute distress, alert and awake Nutritional Appearance: obese morbidly obese Orientation/consciousness: patient oriented x3 Neck Neck: Yes full ROM, Yes no lymphadenopathy and Yes supple Resp Auscultation: clear to auscultation bilaterally Cardio Rate: regular rate Rhythm: regular rhythm Heart sounds: S1 normal heart sound present and S2 normal heart sound present General: Yes no CVA tenderness Back/Spine/Pelvis Back: no CVA tenderness Thoracic/Lumbar Spine: Lasegue's sign negative and paraspinal muscle tenderness bilaterally in the mid lumbar and in the lower lumbar Skin Lesions: no lesions Rashes: no rashes Neuro General: patient oriented x3 Extrem Other: Crepitus noted in both knees, no joint swelling seen, pain on range of motion of right knee joint Assessment and Plan Assessment & Plan (1) Arthritis of both knees: Code(s): M17.0 - Bilateral primary osteoarthritis of knee Plan: Referred to orthopedics for further evaluation management, letter written to her housing department regarding her request to be moved to a lower floor or ground floor apartment (2) Morbid obesity due to excess calories: Code(s): E66.01 - Morbid (severe) obesity due to excess calories Plan: Discussed need to increase activity and wt reduction. Recommended focusing on improving your health instead of dieting. : Eat Mediterranean diet, limit foods high in fat, sugar, and calories, eat slowly, pay attention to portion sizes, plan your meals ahead of time, start regular physical activity 150 minutes of moderate intensity exercise or 90 minutes/week of vigorous exercise and increase water intake. Orders: Referrals Orthopedics Referral M17.11 - Unilateral primary osteoarthritis, right knee, M23.8X1 - Other internal derangements of right knee Coding Level of Care Code Est Pt Level 3 (19002) Diagnoses Arthritis of both knees M17.0 Morbid obesity due to excess calories E66.01
== END 2023-03-16 13:16 | disposition home or self-care (01) ==
PROVIDERS: PCP Internal Medicine; Visit Provider Internal Medicine
DX: M17.0 Bilateral primary osteoarthritis of knee (principal); E66.01 Morbid (severe) obesity due to excess calories; Z68.41 Body mass index [BMI] 40.0-44.9, adult
CPT/HCPCS: 99213

== ENCOUNTER 2023-03-17 08:58 | Outpatient (AMB) | payer OTHER, SELFPAY ==
[2023-03-17 09:37] VITALS: BMI 42.7
--- NOTE | 2023-03-17 09:37 | MHC.OFFVIS ---
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 States pain has been presents for the last 2-3 months. No injury she can recall. She explains she lives on a 3rd floor and stair increase her knee pain as well as prolong standing and walking. Patient states that she has tried Tylenol and Advil which gave her only mild relief. She states that her right knee will give out intermittently. Allergies montelukast [From Singulair] Allergy (Unknown, Verified 03/17/23 09:39) Anaphylaxis, rash peanut Allergy (Verified 03/17/23 09:39) Anaphylaxis strawberry Allergy (Verified 03/17/23 09:39) rash wheat Allergy (Verified 03/17/23 09:39) rash lisinopril Adverse Reaction (Verified 03/17/23 09:39) cough milk Adverse Reaction (Verified 03/17/23 09:39) rash soy Adverse Reaction (Verified 03/17/23 09:39) Abdominal Pain eggs Allergy (Uncoded 03/17/23 09:39) rash seafood Adverse Reaction (Uncoded 03/17/23 09:39) rash PFSH Medical History (Updated 03/17/23 @ 10:18 by Stanley Stanford MD) Allergic rhinitis Asthma Essential hypertension GERD (gastroesophageal reflux disease) Iron deficiency anemia Iron deficiency anemia Moderate asthma with allergic rhinitis Morbid obesity due to excess calories Osteoarthritis of right knee Uncontrolled persistent asthma Vitamin D deficiency Surgical History History of excision of mass History of tubal ligation Family History Father Colon cancer Mother HTN (hypertension) Stroke Brother Encephalitis Substance use disorder Mental health disorder Brother No problems noted. Daughter No problems noted. Daughter No problems noted. 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 Cognitive needs: No Hearing needs: No Vision needs: No Female Reproductive History Menstrual Age of Menarche: 10 Physical Exam Vital Signs: BMI result Body Mass Index 42.7 Const Other: Well-nourished well-developed very friendly female awake alert and oriented x3 in no acute distress Extrem Other: Bilateral lower extremity examination shows good capillary refill, no skin lesions noted, normal sensation light touch Bilateral knee examination shows minimal effusions, palpable crepitus with range of motion, pain with range of motion, range of motion from -3 degrees to 115 degrees, no instability Results Reviewed Results Reviewed: X-rays of the patient's bilateral knee show moderate diffuse joint space narrowing, subchondral sclerosis, no acute bony abnormalities Assessment & Plan Assessment & Plan (1) Arthritis of both knees: Code(s): M17.0 - Bilateral primary osteoarthritis of knee Plan: Ms. Ceron presents with bilateral knee pains, right greater than left, due to degenerative joint disease. I had a lengthy discussion with the patient regarding the treatment options. She wishes to hold off on an injection at this time. I did give her a knee brace to help with her symptoms of instability. I do find that the knee brace is a medical necessity. I also gave her a prescription to go to formal physical therapy for gentle range of motion and strengthening exercises. The patient will follow up with me on as-needed basis should her symptoms not plateau at an unacceptable level next. Feel free to call me at any time should questions regarding orthopedic management arise if I spent 22 minutes in reviewing the patient's records and imaging studies, seeing the patient and documenting in the medical record. Orders: Orders PT Evaluation and Treatment Today M17.0 - Bilateral primary osteoarthritis of knee Coding Level of Care Code New Pt Level 2 (58468) Diagnoses Arthritis of both knees M17.0
== END 2023-03-17 10:17 | disposition home or self-care (01) ==
PROVIDERS: PCP Internal Medicine; Visit Provider Orthopaedic Surgery
DX: M17.0 Bilateral primary osteoarthritis of knee (principal)
CPT/HCPCS: 99202

== ENCOUNTER → 2023-03-17 08:58 | Outpatient (BNVA) | payer OTHER, SELFPAY | PROVIDERS: PCP Internal Medicine; Visit Provider Orthopaedic Surgery | DX: M17.0 Bilateral primary osteoarthritis of knee (principal) | CPT/HCPCS: 99202 ==

== ENCOUNTER 2023-05-12 08:13 | Outpatient (REF) | payer OTHER, SELFPAY ==
[2023-05-12 11:28] LABS: Hematocrit 38.7 % (37.0-47.0); Hemoglobin 12.5 g/dl (12.0-16.0)
[2023-05-12 12:03] LABS: Alanine Aminotransferase 14 U/L (0-31); Anion Gap 12 (12-20); Aspartate Amino Transferase 20 U/L (5-31); Blood Urea Nitrogen 9 mg/dL (9-16); Calcium 9.7 mg/dL (8.4-10.2); Carbon Dioxide 26 mmol/L (22-29); Chloride 106 mmol/L (96-108); Cholesterol 188 mg/dL (<200); Estimated Glomerular Filt Rate > 60; Glucose Fasting 85 mg/dL (60-99); HDL Cholesterol 60 mg/dL (>40); LDL Cholesterol Calculated 119 mg/dL (<100); Potassium 4.1 mmol/L (3.3-5.1); Sodium 140 mmol/L (135-145); Triglycerides 45 mg/dL (<150)
== END 2023-05-12 08:14 | disposition home or self-care (01) ==
LOC: HO.HMGCLDS 08:13
PROVIDERS: PCP Internal Medicine; Visit Provider Internal Medicine
DX: Z01.419 Encounter for gynecological examination (general) (routine) without abnormal findings (principal); E55.9 Vitamin D deficiency, unspecified; E66.01 Morbid (severe) obesity due to excess calories; I10 Essential (primary) hypertension; K21.9 Gastro-esophageal reflux disease without esophagitis; N93.9 Abnormal uterine and vaginal bleeding, unspecified; Z86.2 Personal history of diseases of the blood and blood-forming organs and certain disorders involving the immune mechanism; Z32.02 Encounter for pregnancy test, result negative
CPT/HCPCS: 36415; 80048; 80061; 81025; 82306; 84450; 84460; 85014; 85018; 99396

== ENCOUNTER 2023-05-12 09:08 | Outpatient (AMB) | payer OTHER, SELFPAY ==
[2023-05-12 09:12] VITALS: BP 124/82; BMI 41.7
--- NOTE | 2023-05-12 09:12 | A.OFFVIS_ITS ---
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 Box Shook Patcher Required: Yes Box Shook Patcher Language: Jointer Operator Name: Yue MUSTAFA Information Interpreted: non-clinical & clinical Electric Motor Tester: Electric Motor Tester Present (Yue) Allergies montelukast [From Singulair] Allergy (Unknown, Verified 05/12/23 09:15) Anaphylaxis, rash peanut Allergy (Verified 05/12/23 09:15) Anaphylaxis strawberry Allergy (Verified 05/12/23 09:15) rash wheat Allergy (Verified 05/12/23 09:15) rash lisinopril Adverse Reaction (Verified 05/12/23 09:15) cough milk Adverse Reaction (Verified 05/12/23 09:15) rash soy Adverse Reaction (Verified 05/12/23 09:15) Abdominal Pain eggs Allergy (Uncoded 05/12/23 09:15) rash seafood Adverse Reaction (Uncoded 05/12/23 09:15) rash Is last menstrual period known: Yes Last menstrual period: 05/03/23 Post menopausal: No HPI HPI Comments History of Present Illness Details Presenting for annual exam. Complaining of irregular menstrual cycles with no other associated symptoms Last Pap/HPV was negative in 01/12 Last Mammogram was BI-RADS 1 in 01/14 [facility] Medical History Osteoarthritis of right knee Iron deficiency anemia Vitamin D deficiency Moderate asthma with allergic rhinitis Asthma Allergic rhinitis Morbid obesity due to excess calories Essential hypertension GERD (gastroesophageal reflux disease) Surgical History History of excision of mass History of tubal ligation Family History Father Colon cancer Mother HTN (hypertension) Stroke Brother Encephalitis Substance use disorder Mental health disorder Brother No problems noted. Daughter No problems noted. Daughter No problems noted. 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 Cognitive needs: No Hearing needs: No Vision needs: No Female Reproductive History Menstrual Age of Menarche: 10 Duration of menses: 6-7 days Date of last menstrual period: 05/03/23 control method: permanent sterilization Total pregnancies: 2 Full term: 2 Number of Living Children: 2 Date of last pap smear: 12/25/20 (negative) Date of Mammogram: 12/28/22 Review of Systems Const All systems reviewed & are unremarkable except as noted in HPI and below Card Reports as per HPI Resp Reports as per HPI GI Reports as per HPI and Reports no additional complaints Reports as per HPI Physical Exam Vital Signs: Last Vital Signs BP 124/82 05/12/23 09:12 BMI result Body Mass Index 41.7 Const General: cooperative, healthy appearing and comfortable Chest Chest palpation & inspection: normal inspection of the chest and normal palpation of entire chest wall Breast/axilla inspection: normal inspection of the breasts and normal inspection of the axillae Breast/axilla palpation: normal palpation of the breasts, normal palpation of the axillae and no axillary lymphadenopathy Resp Effort & Inspection: normal respiratory effort Auscultation: clear to auscultation bilaterally Percussion: percussion normal Cardio Palpation: normal PMI Rate: regular rate Rhythm: regular rhythm Heart sounds: no murmurs and no rubs Peripheral pulses: Peripheral pulses 2+ throughout GI Inspection: Yes normal to inspection Palpation (GI): Soft to palpation, nontender, no guarding, not rigid and No hepatosplenomegaly present Percussion: Yes normal to percussion Auscultation: normal bowel sounds Rectal Exam - Female: deferred General: Yes bladder normal to palpation External Female Exam: No lesion Speculum Exam - Vagina: normal appearance of the vagina, normal palpation, normal vaginal discharge and not erythematous Speculum Exam - Cervix: normal appearance of the cervix and normal palpation Bimanual exam- vagina & uterus: normal bimanual exam, normal palpation, uterine size normal, bladder normal to palpation, consistency normal and normal palpation Bimanual Exam- Adnexa, other: normal adnexae, no masses and no tenderness Assessment & Plan Assessment & Plan (1) Well woman exam: Code(s): Z01.419 - Encounter for gynecological examination (general) (routine) without abnormal findings Plan: Cotesting not indicated this year. Instructions given the patient to schedule next screening Mammogram in 01/15. Counseled the patient about the recommended dietary allowance of 1000 mg of Calcium & 600 IU of vitamin D. The patient was instructed to perform monthly self-breast exams and to schedule an annual exam in a year; All questions answered and the patient verbalized understanding. Instructed the patient to schedule annual exam in a year (2) Abnormal uterine bleeding (AUB): Code(s): N93.9 - Abnormal uterine and vaginal bleeding, unspecified Plan: Co testing not indicated, GC and chlamydia taken CBC, TSH, prolactin, HCG, and pelvic ultrasound ordered. Discussed with the patient the different causes of abnormal bleeding including thyroid disorders, uterine and ovarian pathology, endometrial hyperplasia, carcinoma and other potential causes. Discussed with the patient the work up including CBC (to r/o anemia), TSH, pelvic Ultrasound, endometrial biopsy to r/o endometrial pathology. All questions answered and the patient verbalized understanding. Instructed the patient to schedule an appointment for an endometrial biopsy in 2 weeks. Orders: Orders HCG Quantitative Today N93.9 - Abnormal uterine and vaginal bleeding, unspecified Prolactin Today N93.9 - Abnormal uterine and vaginal bleeding, unspecified Complete Blood Count no Diff Today N93.9 - Abnormal uterine and vaginal bleeding, unspecified US pelvic and transvaginal Today N93.9 - Abnormal uterine and vaginal bleeding, unspecified TSH reflex Free T4 Today N93.9 - Abnormal uterine and vaginal bleeding, unspecified Coding Level of Care Code Est Pt Prev Care 40-64y(24279) Diagnoses Well woman exam Z01.419 Abnormal uterine bleeding (AUB) N93.9
== END 2023-05-12 11:02 | disposition home or self-care (01) ==
LOC: HO.HWS 09:08
PROVIDERS: PCP Internal Medicine; Visit Provider Obstetrics & Gynecology
DX: Z01.419 Encounter for gynecological examination (general) (routine) without abnormal findings (principal); N93.9 Abnormal uterine and vaginal bleeding, unspecified; Z32.02 Encounter for pregnancy test, result negative
CPT/HCPCS: 99396

== ENCOUNTER 2023-06-27 11:00 | Outpatient (RCR) | payer OTHER, SELFPAY ==
[2023-05-16 11:03] VITALS: BP 141/83; PULSE 99
--- NOTE | 2023-05-16 12:52 | MHC.PT.EP ---
[facility] [place] Office [place] Office [place] Office [address] Melodie Gonzalez [address] [phone] F: [phone] F: [phone] F: [phone] F: [phone] Physical Therapy Plan of Care Date of Evaluation: 05/16/23 Date of Surgery: Diagnosis: bilateral knee OA/deconditioning Assessment: Patient is a pleasant 42 y.o. female who is referred to PT by Dr. René MD with Dx of bilateral knee OA. Her x-ray imaging reveals severe tricompartmental OA bilaterally. Patient impairments include pain, limited ROM, weakness, antalgic gait. Patient current functional limitations are stairs one at a time, more difficulty descending stairs, standing up after prolonged sitting, prolonged standing, bend/squat. Patient will benefit from skilled PT to address aforementioned impairments and functional limitations to meet established goals. Frequency and Duration: The patient will be seen 2x/week for 4 weeks Short Term Goals: 2 weeks Patient demonstrates consistency and independence with HEP to self manage symptoms. Patient demonstrates proper use of stairs with good sequencing to protect knees. Roaster Helper Goals: 4 weeks Patient presents with increased R knee flexion 110 degrees to improve functional mobility with squat to low surface. Patient presents with increased bilateral knee extension 4+/5 to be able to ascend/descend 3 flights of stairs at home. Treatment Plan: Modalities to reduce pain, spasms and effusion. Manual therapy to restore motion and function. Therapeutic exercise to improve strength and flexibility. Neuromuscular re-education for posture and balance. Therapeutic activities to return to functional activities of daily living. Electronically signed by: Jordon Priest, PT, DPT Please sign and return to therapist. Thank you for your referral.
--- NOTE | 2023-08-08 10:42 | MHC.PT.DC ---
[facility] [place] [facility] [place] [facility] [place] Office [address] Melodie Gonzalez 140 [facility] [phone] F: [phone] F: [phone] F: [phone] F: [phone] Physical Therapy Discharge Report Diagnosis: bilateral knee OA/deconditioning Date of Surgery: Date of Evaluation: 05/16/23 Date of Discharge: 08/08/23 Treatments to Date: 9 Cancellations to Date: 2 No Shows to Date: 2 Discharge Status: Independent with HEP Visit Non-compliance Discharge Summary: Patient did perform exericse program aimed at restoring ROM and building strength in her knees. She has an independent HEP. She ceased attending PT on her own accord as of 06/27/23. She also did not show to any scheduled orthopedic appointments (06/02/23, 06/30/23, 08/03/23), which was the next stepped planned after PT to discuss treatment options. She is discharged from PT for non compliance with attendance. Electronically signed by: Jordon Priest, PT, DPT Please sign and return to therapist. Thank you for your referral.
== END 2023-08-08 10:42 | disposition home or self-care (01) ==
LOC: HO.PT 11:00
PROVIDERS: PCP Internal Medicine; Visit Provider Orthopaedic Surgery
DX: M17.0 Bilateral primary osteoarthritis of knee (principal)
CPT/HCPCS: 97110; 97161; 97530; 97535

== ENCOUNTER 2023-07-20 10:49 | Outpatient (AMB) | payer OTHER, SELFPAY ==
--- NOTE | 2023-07-20 10:53 | A.OFFPC_ITS ---
Vital Signs 07/20/23 10:57 Height 5 ft 4 in Weight 244 lb 2 oz BMI 41.9 BP 132/80 Blood Pressure Location Lt brachial Position Sitting Pulse 78 Pulse Source Pulse Oximeter Pulse Oximetry (%) 96 Oxygen Delivery Method Room Air Intake Visit Reasons: F/u labs- NEEDS PHQ9 & FOLLOW UP Intake Note: Pt is here to follow up for her lab results Allergies montelukast [From Singulair] Allergy (Unknown, Verified 08/13/23 01:33) Anaphylaxis, rash peanut Allergy (Verified 08/13/23 01:33) Anaphylaxis strawberry Allergy (Verified 08/13/23:33) rash wheat Allergy (Verified 08/13/23 01:33) rash lisinopril Adverse Reaction (Verified 08/13/23:33) cough milk Adverse Reaction (Verified 08/13/23:33) rash soy Adverse Reaction (Verified 08/13/23:33) Abdominal Pain eggs Allergy (Uncoded 08/13/23 01:33) rash seafood Adverse Reaction (Uncoded 08/13/23:33) rash Medication List - Last Reconciled 08/13/23 by Teresa Maddox MD albuterol sulfate 90 mcg/actuation 2 inhalations inhalation QID PRN amlodipine 5 mg PO DAILY 90 days cetirizine 10 mg PO DAILY cholecalciferol (vitamin D3) 50 mcg PO DAILY diclofenac sodium 25 mg PO BID PRN 7 days famotidine 40 mg PO DAILY fluticasone propionate 50 mcg/actuation 1 spray intranasal DAILY PRN hydroxyzine HCl 25 mg PO BID PRN mometasone-formoterol 200-5 mcg/actuation (Dulera) 2 puffs inhalation Q12H 30 days Tobacco use date assessed: 07/20/23 Dental Screening Dental Screen Date: 07/20/23 Did you have a dental visit in the last 12 months?: Yes Did you have a dental problem in the last 6 months where you did not have access to dental care?: No Was dental information given to patient?: Patient has dentist HPI F/u labs- NEEDS PHQ9 & FOLLOW UP HPI Details 42-year-old lady with hypertension, hist ory of vitamin-D deficiency and iron deficiency anemia, here today for follow-up. She had recent fasting labs done which showed normal hemoglobin/hematocrit, electrolytes, renal function, lipid panel are within normal limits as well as vitamin-D level. [facility] Medical History (Updated 08/13/23 @ 01:51 by Teresa Maddox MD) Mixed anxiety and depressive disorder Hx of iron deficiency anemia Osteoarthritis of right knee Iron deficiency anemia Vitamin D deficiency Moderate asthma with allergic rhinitis Asthma Allergic rhinitis Morbid obesity due to excess calories Essential hypertension GERD (gastroesophageal reflux disease) Surgical History History of excision of mass History of tubal ligation Family History Father Colon cancer Mother HTN (hypertension) Stroke Brother Encephalitis Substance use disorder Mental health disorder Brother No problems noted. Daughter No problems noted. Daughter No problems noted. 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 1. Little interest or pleasure in doing things: more than half the days 2. Feeling down, depressed, or hopeless: several days 3. Trouble falling or staying asleep, or sleeping too much: not at all 4. Feeling tired or having little energy: more than half the days 5. Poor appetite or overeating: several days 6. Feeling bad about yourself - or that you are a failure or have let yourself or your family down: several days 7. Trouble concentrating on things, such as reading the newspaper or watching television: not at all 8. Moving or speaking so slowly that other people could have noticed. Or the opposite - being so fidgety or restless that you have been moving around a lot more than usual: not at all 9. Thoughts that you would be better off or of hurting yourself in some way: not at all Total score: 7 Depression Screening Interpretation: Positive Depression Screening Done: Yes 47313 - PHQ-9 Billing: Yes Source: Developed by Drs. Prateek Burkett, Lesia Rockwell, Josiah Hernandez and colleagues, with an educational teresa from [employer]. Thrive Questionnaire Date Thrive assessed: 07/20/23 I am a: Patient What is your living situation today?: I have a steady place to live Within the past 12 months, did the food you bought not last and you didn't have the money to get more?: Often true Within the past 12 months, did you worry whether your food would run out before you got money to buy more?: Often true Do you have trouble paying for medicines?: No Do you have trouble getting transportation to medical appointments?: No Do you have trouble paying your heating and electricity bill?: Yes Do you have trouble taking care of your child, family member or friend?: No Do you have trouble with day-to-day activities such as bathing, preparing meals, shopping, managing finances, etc.?: No Are you currently unemployed and looking for a job?: No Are you interested in more education?: No RENETTA-7 AMB Questionnaire RENETTA-7 Date RENETTA - 7 assessed: 07/20/23 Feeling nervous, anxious, or on edge: 1 = Several days Not being able to stop or control worryin = More than half the days Worrying too much about different things: 1 = Several days Trouble relaxin = Nearly every day Being so restless that it is hard to sit still: 1 = Several days Becoming easily annoyed or irritable: 3 = Nearly every day Feeling afraid as if something awful might happen: 0 = Not at all Total RENETTA-7 score (0-4 normal; 5-9 mild; 10-14 moderate; 15-21 severe): 11 Source: Developed by Drs. Prateek Burkett, Lesia Rockwell, Josiah Hernandez and colleagues, with an educational teresa from [employer]. RENETTA-7 Assessment Billing RENETTA-7 Assessment Tool: RENETTA-7 Assessment 38309 Physical exam (Primary Care) Vital Signs: Last Vital Signs Pulse 78 07/20/23 10:57 BP 132/80 07/20/23 10:57 Pulse Ox 96 07/20/23 10:57 Oxygen Delivery Method Room Air 07/20/23 10:57 BMI result Body Mass Index 41.9 Tobacco/Smoking Status: Tobacco use Status Tobacco use date assessed 07/20/23 07/20/23 11:10 Patient Tobacco Use Status Former Tobacco user 07/20/23 10:55 e-Cigarette/Vaping Use Never Used 07/20/23 10:55 PHQ-9: PHQ-9 Score PHQ-9: Total score 8 07/20/23 12:11 Depression Screening Interpretation: Positive Thrive Assessment: Date of Thrive Assessment Date Thrive assessed 07/20/23 07/20/23 12:11 Const General: comfortable, no acute distress, alert and awake Nutritional Appearance: obese morbidly obese Orientation/consciousness: patient oriented x3 HENMT Head: Yes normocephalic Face and sinus: Yes face symmetric Mouth: Normal oral and palatal mucosa present, oropharynx normal and moist mucous membranes Neck Neck: Yes full ROM, Yes no lymphadenopathy and Yes supple Resp Auscultation: clear to auscultation bilaterally Cardio Rate: regular rate Rhythm: regular rhythm Heart sounds: S1 normal heart sound present and S2 normal heart sound present GI Inspection: Yes obesity Palpation (GI): Soft to palpation, nontender and no guarding Auscultation: normal bowel sounds General: Yes no CVA tenderness Back/Spine/Pelvis Back: no CVA tenderness Skin Lesions: no lesions Rashes: no rashes Neuro General: patient oriented x3 Extrem General: Yes no joint enlargement, Yes no clubbing, cyanosis or edema, Yes normal gait and Yes other (Crepitus positive in knees) Psych Appearance: grossly normal and well kempt Mental Status: mental status grossly normal Speech and movement: Normal speech and movement present Affect: normal affect Attitude: cooperative Thought process: Normal thought process present Results Reviewed Results Reviewed: Name: Olivia Ceron I Age/Sex: 42/F : 1980 Unit#: [id number] Attend Dr: Teresa Maddox MD Re05/12/23 Status: DEP REF Location: [facility] Disch: SPEC : [id number] LELO: 05/12/23 STATUS: COMP REQ : [id number] RECD: 05/12/[address]: Teresa Maddox MD COMP: 05/12/23 ENTERED: 05/12/[address] [facility] [address]: ORDERED: Met Prof Fast, AST, ALT, Lipid Panel, Vitamin D 25-OH Test Result Flag Reference Site Sodium 140 135-145 mmol/L Potassium 4.1 3.3-5.1 mmol/L CL 106 96-108 mmol/L CO2 26 22-29 mmol/L Gap 12 12-20 BUN 9 9-16 mg/dL Creat 0.72 0.5-1.4 mg/dL EGFR > 60 NOTE: For -Ivorian individuals, multiply the result by 1.210. Chronic Kidney Disease: Estimated GFR < 60 mL/min/1.73m2 Severe Kidney Disease: Estimated GFR < 15 mL/min/1.73m2 FBS 85 60-99 mg/dL CA 9.7 8.4-10.2 mg/dL AST (GOT) 20 5-31 U/L ALT (GPT) 14 0-31 U/L Triglyceride 45 <150 mg/dL Desirable Triglyceride: less than 150 mg/dL Borderline High Triglyceride 150-199 mg/dL High Triglyceride: 200-499 mg/dL Very High Triglyceride: greater than or equal to 5OO mg/dL Cholesterol 188 <200 mg/dL Desirable Cholesterol: less than 200 mg/dL Borderline High Cholesterol: 200-239 mg/dL High Cholesterol: greater than 239 mg/dL LDL Calculated 119 H <100 mg/dL Desirable LDL: less than 100 mg/dL Near Optimal/Above Optimal LDL: 110-129 mg/dL Borderline High LDL: 130-159 mg/dL High LDL: 160-189 mg/dL Very High LDL: greater than or equal to 190 mg/dL HDL 60 >40 mg/dL Desirable HDL: greater than 40 mg/dL Note: This HDL assay may give artificially low results in patients with liver disease. Vit D 25-OH Tot 41.0 >30 ng/mL Health Based Reference Values* < 20 ng/mL Deficient 20-30 ng/mL Insufficient > 30 ng/mL Sufficient *Neva VERGARA. N Engl J Med. 2007;357:266-280 Care must be taken in interpreting Vitamin D results from different laboratories and methodologies. Published data demonstrated that results from patients undergoing hemodialysis may show a negative bias when tested with various automated 25-OH vitamin D assays when compared to LC-MS/MS. When testing samples from patients whose predominant form of Vitamin D is Vitamin D2, such as patients receiving Vitamin D2 supplementation, results that are subtherapeutic should be confirmed with another method such as LC-MS/MS. Laboratory Tests 05/12/23 08:18 Hgb 12.5 Hct 38.7 Assessment and Plan Assessment & Plan (1) Essential hypertension: Code(s): I10 - Essential (primary) hypertension Plan: Blood pressure at goal of less than 130/80. Continue amlodipine 5 mg once a day. Reinforced importance of following a low sodium diet, getting regular exercise, and lowering stress levels. (2) Hx of iron deficiency anemia: Code(s): Z86.2 - Personal history of diseases of the blood and blood-forming organs and certain disorders involving the immune mechanism Plan: Anemia has resolved. Reinforced importance of following on iron rich diet from green leafy vegetables and lean meat (3) Mixed anxiety and depressive disorder: Code(s): F41.8 - Other specified anxiety disorders Plan: Continue with hydroxyzine, referred to KRISTAL Fowler for referral to see a therapist Coding Level of Care Code Est Pt Level 4 (17871) Diagnoses Essential hypertension I10 Hx of iron deficiency anemia Z86.2 Mixed anxiety and depressive disorder F41.8 Additional Codes RENETTA-7 Assessment Billing - RENETTA-7 Assessment Tool: RENETTA-7 Assessment 04611 ([id number])
[2023-07-20 10:57] VITALS: BP 132/80; PULSE 78; O2SAT 96; BMI 41.9
== END 2023-07-20 11:40 | disposition home or self-care (01) ==
PROVIDERS: PCP Internal Medicine; Visit Provider Internal Medicine
DX: I10 Essential (primary) hypertension (principal); Z86.2 Personal history of diseases of the blood and blood-forming organs and certain disorders involving the immune mechanism; F41.8 Other specified anxiety disorders
CPT/HCPCS: 96127; 99214

== ENCOUNTER 2024-01-03 14:06 | Outpatient (REF) | payer OTHER, SELFPAY | END 2024-01-03 14:07 | disposition home or self-care (01) | LOC: HO.MAMMO 14:06 | PROVIDERS: PCP Internal Medicine; Visit Provider Internal Medicine | DX: Z12.31 Encounter for screening mammogram for malignant neoplasm of breast (principal) | CPT/HCPCS: 77063; 77067 ==

== ENCOUNTER → 2024-01-03 15:00 | Outpatient (BNV) | payer OTHER, SELFPAY | PROVIDERS: PCP Internal Medicine; Visit Provider Radiology Diagnostic Radiology | DX: Z12.31 Encounter for screening mammogram for malignant neoplasm of breast (principal) | CPT/HCPCS: 77063; 77067 ==

== ENCOUNTER 2024-01-12 13:22 | Outpatient (REF) | payer OTHER, SELFPAY ==
--- NOTE | ~2024-01-12 | US_ITS ---
EXAMINATION: US PELVIS CLINICAL INFORMATION: Abnormal uterine and vaginal bleeding. COMPARISON: January 01, 2021 TECHNIQUE: Ultrasound of the pelvis is performed using both transabdominal and transvaginal transducers along with Doppler. Transvaginal imaging is performed due to inadequate visualization transabdominally. FINDINGS: Uterus is anteverted and measures 10.3 x 4.6 x 6.5 cm. Endometrial thickness is 12 mm. Endometrium appears echogenic. A 1.2 x 0.7 x 0.9 cm echogenic focus is concerning for an endometrial polyp. No significant free fluid. Right ovary measures 3.2 x 2.4 x 2.3 cm, volume 9.3 mL. Left ovary measures 3.0 x 2.0 x 2.9 cm, volume 9.1 mL. Bilateral ovaries are unremarkable. US/US pelvic and transvaginal IMPRESSION: 1. Endometrial thickness is 12 mm. Endometrium appears echogenic. 1.2 x 0.7 x 0.9 cm echogenic focus is concerning for an endometrial polyp. Gynecologic consultation recommended to determine further management. 2. Unremarkable bilateral ovaries. 3. No significant free fluid.
== END 2024-01-12 13:23 | disposition home or self-care (01) ==
LOC: HO.US 13:22
PROVIDERS: PCP Internal Medicine; Visit Provider Obstetrics & Gynecology
DX: N93.9 Abnormal uterine and vaginal bleeding, unspecified (principal)
CPT/HCPCS: 76830; 76856

== ENCOUNTER 2024-01-18 11:21 | Outpatient (AMB) | payer OTHER, SELFPAY ==
[2024-01-18 11:23] VITALS: BP 130/78; PULSE 83; TEMP 36.8; O2SAT 98; BMI 41.9
--- NOTE | 2024-01-18 11:23 | MHC.OFFWIV ---
Intake Vital Signs 01/18/24 11:23 Height 5 ft 4 in Weight 244 lb BMI 41.9 BP 130/78 Blood Pressure Location Rt brachial Position Sitting Pulse 83 Pulse Source Pulse Oximeter Temp 98.3 F Temp Source Oral Pulse Oximetry (%) 98 Oxygen Delivery Method Room Air Intake Visit Reasons: EP UTI/lower back pain Intake Note: pt is here for uti and lower back pain Patient Tobacco Use Status: Former Tobacco user Allergies montelukast [From Singulair] Allergy (Unknown, Verified 01/18/24 11:23) Anaphylaxis, rash peanut Allergy (Verified 01/18/24 11:23) Anaphylaxis strawberry Allergy (Verified 01/18/24 11:23) rash wheat Allergy (Verified 01/18/24 11:23) rash lisinopril Adverse Reaction (Verified 01/18/24 11:23) cough milk Adverse Reaction (Verified 01/18/24 11:23) rash soy Adverse Reaction (Verified 01/18/24 11:23) Abdominal Pain eggs Allergy (Uncoded 08/13/23 01:33) rash seafood Adverse Reaction (Uncoded 08/13/23 01:33) rash Do you need a note to return to daycare/school/sports/work: No HPI EP UTI/lower back pain HPI Details This is a 43-year-old female patient who presents today with a 3-4 day history of urinary tract infection symptoms. She reports burning and frequency with urination, and a dark color to her urine. She reports a dull ache/tightness in her lower back as well. Denies any fever or chills. [facility] Medical History Mixed anxiety and depressive disorder Hx of iron deficiency anemia Osteoarthritis of right knee Iron deficiency anemia Vitamin D deficiency Moderate asthma with allergic rhinitis Asthma Allergic rhinitis Morbid obesity due to excess calories Essential hypertension GERD (gastroesophageal reflux disease) Surgical History History of excision of mass History of tubal ligation Family History Father Colon cancer Mother HTN (hypertension) Stroke Brother Encephalitis Substance use disorder Mental health disorder Brother No problems noted. Daughter No problems noted. Daughter No problems noted. 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 Cognitive needs: No Hearing needs: No Vision needs: No Female Reproductive History Menstrual Age of Menarche: 10 Review of Systems Const All systems reviewed & are unremarkable except as noted in HPI and below Physical Exam Vital Signs: BMI result Body Mass Index 41.9 Const General: cooperative and no acute distress Resp Effort & Inspection: normal respiratory effort Auscultation: clear to auscultation bilaterally Cardio Rate: regular rate Rhythm: regular rhythm General: Yes bladder normal to palpation and Yes CVA tenderness (dull ache/tightness b/l) Bimanual exam- vagina & uterus: bladder normal to palpation Back/Spine/Pelvis Back: CVA tenderness (dull ache/tightness b/l) Skin General skin exam: no rashes or lesions noted Extrem General: Yes capillary refill normal and Yes no clubbing, cyanosis or edema Psych Appearance: grossly normal Mental Status: mental status grossly normal Speech and movement: Normal speech and movement present Results AMB Urinalysis, Automated UA Leukoctes 500 [place]on/uL Last Edit by Earl Bowers CMA on 01/18/24 11:36 UA Nitrite Negative Last Edit by Earl Bowers CMA on 01/18/24 11:36 UA Urobilinogen 0.2 mg/dL Last Edit by Earl Bowers CMA on 01/18/24 11:36 UA Protein 0 mg/dL Last Edit by Earl Bowers CMA on 01/18/24 11:36 UA pH 6.0 Last Edit by Earl Bowers CMA on 01/18/24 11:36 UA Blood 200 Tyree/uL Last Edit by Earl Bowers CMA on 01/18/24 11:36 UA Specific [place] 1.020 Last Edit by Earl Bowers CMA on 01/18/24 11:36 UA Ketone Negative Last Edit by Earl Bowers CMA on 01/18/24 11:36 UA Bilirubin 0 mg/dL Last Edit by Earl Bowers CMA on 01/18/24 11:36 UA Glucose 0 mg/dL Last Edit by Earl Bowers CMA on 01/18/24 11:36 Assessment & Plan Assessment & Plan (1) Urinary tract infection: Code(s): N39.0 - Urinary tract infection, site not specified Qualifiers: Urinary tract infection type: site unspecified Hematuria presence: with hematuria Qualified Code(s): N39.0 - Urinary tract infection, site not specified; R31.9 - Hematuria, unspecified Plan: Macrobid and Pyridium prescribed for UTI. Reviewed indications, use, possible side effects of medications. Recommended increased hydration and complete emptying of bladder. Advised to return to the clinic if she does not improve with treatment, or symptoms worsen/new symptoms develop. She verbalizes understanding and agrees to plan. Orders: Orders AMB Urinalysis Automated Today Z13.9 - Encounter for screening, unspecified Medications: New nitrofurantoin monohyd/m-cryst 100 mg (Macrobid) must administer with a meal/food 100 mg PO Q12H 5 days 10 caps 0RF N39.0 - Urinary tract infection, site not specified, R31.9 - Hematuria, unspecified phenazopyridine 200 mg PO TID PRN 6 tabs 0RF pain N39.0 - Urinary tract infection, site not specified, R31.9 - Hematuria, unspecified Coding Level of Care Code Est Pt Level 4 (46608) Diagnoses Urinary tract infection with hematuria, site unspecified N39.0; R31.9 Urinary tract infection type: site unspecified Hematuria presence: with hematuria
== END 2024-01-18 11:58 | disposition home or self-care (01) ==
PROVIDERS: PCP Internal Medicine; Visit Provider Nurse Practitioner Family
DX: N39.0 Urinary tract infection, site not specified (principal); R31.9 Hematuria, unspecified
CPT/HCPCS: 81003; 99214

== ENCOUNTER 2024-01-19 13:43 | Outpatient (REF) | payer OTHER, SELFPAY | END 2024-01-19 13:44 | disposition home or self-care (01) | LOC: HO.LAB 13:43 | PROVIDERS: Visit Provider Internal Medicine | DX: Z13.89 Encounter for screening for other disorder (principal) ==

== ENCOUNTER 2024-01-24 08:34 | Outpatient (REF) | payer OTHER, SELFPAY ==
[2024-01-24 11:18] LABS: Hematocrit 38.3 % (37.0-47.0); Hemoglobin 12.3 g/dl (12.0-16.0)
[2024-01-24 11:48] LABS: Anion Gap 11 (12-20); Blood Urea Nitrogen 15 mg/dL (9-16); Calcium 9.4 mg/dL (8.4-10.2); Carbon Dioxide 26 mmol/L (22-29); Chloride 107 mmol/L (96-108); Cholesterol 190 mg/dL (<200); Estimated Glomerular Filt Rate > 60; Glucose Fasting 84 mg/dL (60-99); HDL Cholesterol 58 mg/dL (>40); LDL Cholesterol Calculated 122 mg/dL (<100); Sodium 140 mmol/L (135-145); Triglycerides 51 mg/dL (<150)
== END 2024-01-24 08:35 | disposition home or self-care (01) ==
LOC: HO.HMGCLDS 08:34
PROVIDERS: PCP Internal Medicine; Visit Provider Internal Medicine
DX: I10 Essential (primary) hypertension (principal); E66.01 Morbid (severe) obesity due to excess calories; Z86.2 Personal history of diseases of the blood and blood-forming organs and certain disorders involving the immune mechanism; Z13.220 Encounter for screening for lipoid disorders
CPT/HCPCS: 36415; 80048; 80061; 85014; 85018

== ENCOUNTER 2024-02-07 10:13 | Outpatient (REF) | payer OTHER, SELFPAY ==
[2024-02-07 11:52] LABS: Hematocrit 37.8 % (37.0-47.0); Hemoglobin 12.2 g/dl (12.0-16.0); Mean Corpuscular HGB Conc 32.3 g/dl (31.0-35.0); Mean Corpuscular Hemoglobin 27.8 pg (27.0-33.0); Mean Corpuscular Volume 86.1 fL (80.0-98.0); Mean Platelet Volume 9.7 fL (9.4-12.3); Platelet Count 382 X10*3/uL (160-400); Red Blood Count 4.39 X10*6/uL (4.20-5.50); Red Cell Distribution Width 15.1 % (11.0-16.0); White Blood Count 6.7 X10*3/uL (4.8-10.8)
[2024-02-07 12:46] LABS: HCG Quantitative < 2 mIU/mL; TSH reflex Free T4 1.17 uIU/mL (0.32-4.0)
[2024-02-08 12:08] LABS: Prolactin 8.5 ng/mL
== END 2024-02-07 10:14 | disposition home or self-care (01) ==
LOC: HO.LAB 10:13
PROVIDERS: PCP Internal Medicine; Visit Provider Obstetrics & Gynecology
DX: N93.9 Abnormal uterine and vaginal bleeding, unspecified (principal); N84.0 Polyp of corpus uteri
CPT/HCPCS: 36415; 84146; 84443; 84702; 85027; 99212

== ENCOUNTER 2024-02-07 10:13 | Outpatient (AMB) | payer OTHER, SELFPAY ==
[2024-02-07 10:19] VITALS: BP 150/92; BMI 41.6
--- NOTE | 2024-02-07 10:19 | A.OFFVIS_ITS ---
Vital Signs 02/07/24 10:19 Height 5 ft 4 in Weight 242 lb 8.136 oz BMI 41.6 BP 150/92 H Intake Visit Reasons: pre op Book Solicitor Required: Yes Book Solicitor Language: Gas Transfer Operator Services: Book Solicitor Present (in person) Book Solicitor Name: Yue MUSTAFA Information Interpreted: non-clinical & clinical Public Transit Trolley Driver: Public Transit Trolley Driver Present Accompanied by: Friend Allergies montelukast [From Singulair] Allergy (Unknown, Verified 02/07/24 10:28) Anaphylaxis, rash peanut Allergy (Verified 02/07/24 10:28) Anaphylaxis strawberry Allergy (Verified 02/07/24 10:28) rash wheat Allergy (Verified 02/07/24 10:28) rash lisinopril Adverse Reaction (Verified 02/07/24 10:28) cough milk Adverse Reaction (Verified 02/07/24 10:28) rash soy Adverse Reaction (Verified 02/07/24 10:28) Abdominal Pain eggs Allergy (Uncoded 02/07/24 10:28) rash seafood Adverse Reaction (Uncoded 02/07/24 10:28) rash Is last menstrual period known: Yes Last menstrual period: 05/22/20 Post menopausal: No Patient : No Do you need a note to return to daycare/school/sports/work: Yes (for surgery on tuesday) HPI Comments Details: Presenting for follow-up regarding abnormal uterine bleeding. The patient was seen in 05/16 workup was ordered including CBC, TSH, prolactin, hCG and a pelvic ultrasound and the patient was instructed schedule endometrial biopsy in 2 weeks. The patient did not follow up till now. Pelvic ultrasound was done few weeks ago which showed the following: IMPRESSION: 1. Endometrial thickness is 12 mm. Endometrium appears echogenic. 1.2 x 0.7 x 0.9 cm echogenic focus is concerning for an endometrial polyp. Gynecologic consultation recommended to determine further management. 2. Unremarkable bilateral ovaries. 3. No significant free fluid. Last co testing 2028 was negative Last mammogram in 01/15 was BI-RADS 1 CBC TSH hCG and prolactin were not done [facility] Medical History Mixed anxiety and depressive disorder Hx of iron deficiency anemia Osteoarthritis of right knee Iron deficiency anemia Vitamin D deficiency Moderate asthma with allergic rhinitis Asthma Allergic rhinitis Morbid obesity due to excess calories Essential hypertension GERD (gastroesophageal reflux disease) Surgical History History of excision of mass History of tubal ligation Family History Father Colon cancer Mother HTN (hypertension) Stroke Brother Encephalitis Substance use disorder Mental health disorder Brother No problems noted. Daughter No problems noted. Daughter No problems noted. 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 Cognitive needs: No Hearing needs: No Vision needs: No Female Reproductive History Menstrual Age of Menarche: 10 Date of last menstrual period: 05/22/20 Total pregnancies: 2 Full term: 2 Review of Systems Card Reports as per HPI and Reports no additional complaints Resp Reports as per HPI and Reports no additional complaints GI Reports as per HPI and Reports no additional complaints Reports as per HPI Physical Exam Vital Signs: Last Vital Signs BP 150/92 H 02/07/24 10:19 BMI result Body Mass Index 41.6 Const General: cooperative, healthy appearing and comfortable Resp Effort & Inspection: normal respiratory effort Auscultation: clear to auscultation bilaterally Percussion: percussion normal Cardio Palpation: normal PMI Rate: regular rate Rhythm: regular rhythm Heart sounds: no murmurs and no rubs Peripheral pulses: Peripheral pulses 2+ throughout GI Inspection: Yes normal to inspection Palpation (GI): Soft to palpation, nontender, no guarding, not rigid and No hepatosplenomegaly present Percussion: Yes normal to percussion Auscultation: normal bowel sounds Rectal Exam - Female: deferred Assessment & Plan Assessment & Plan (1) Endometrial polyp: Code(s): N84.0 - Polyp of corpus uteri Category: Medical Plan: GC/CT collected, instructions given the patient to have her blood work done [place]. Discussed with the patient the finding on ultrasound showing possible endometrial polyp, recommended hysteroscopy D&C possible polypectomy/myomectomy. Discussed with the patient the procedure , all benefits and risks including but not limited to inability to complete the procedure , insufficient endometrial tissue for a complete evaluation of the endometrial cavity , bleeding, i nfection, possible need for blood transfusion with all its risk ( HIV,syphilis, Hepatitis, anaphylaxis shock, others..), injury to bladder, rectum, possible need for laparoscopy/laparotomy or hysterectomy. The patient verbalized understanding and signed the consent. Instructions given the patient to stay NPO after midnight the day prior to the procedure and to take only the specific medication (s) discussed the morning of the surgical procedure and to schedule a 2 week postoperative appointment Coding Level of Care Code Est Pt Level 3 (11032) Diagnoses Endometrial polyp N84.0
== END 2024-02-07 12:28 | disposition home or self-care (01) ==
LOC: HO.HWS 10:13
PROVIDERS: PCP Internal Medicine; Visit Provider Obstetrics & Gynecology
DX: N84.0 Polyp of corpus uteri (principal)
CPT/HCPCS: 99213

== ENCOUNTER 2024-02-07 11:07 | Outpatient (REF) | payer OTHER, SELFPAY ==
[2024-02-08 05:47] LABS: CT PCR NOT DETECTED (Not Detect.); NG PCR NOT DETECTED (Not Detect.)
== END 2024-02-07 11:08 | disposition home or self-care (01) ==
LOC: HO.LNP 11:07
PROVIDERS: Visit Provider Obstetrics & Gynecology
DX: N84.0 Polyp of corpus uteri (principal)
CPT/HCPCS: 87491; 87591

== ENCOUNTER → 2024-02-10 12:07 | Day surgery (SDC) | payer OTHER, SELFPAY ==
[2024-02-10 12:22] VITALS: BMI 41.6
[2024-02-10 12:32] LABS: UPreg QC Valid YES; Urine Pregnancy NEGATIVE (NEGATIVE)
[2024-02-10 12:58] VITALS: BMI 38.6
--- NOTE | 2024-02-10 13:01 | PC.NURSE ---
Patient drank one cup of water prior to procedure. Patient also drank small amount of lemonade a little after midnight last night. No food since midnight. Anesthesia Dr. Sia mayberry.
[2024-02-10 13:02] VITALS: BP 154/83; PULSE 94; RESP 16; TEMP 37.2; O2SAT 100
--- NOTE | 2024-02-10 13:20 | MHC.SHP ---
Pre-Procedural Eval Section A - 24 Hr Update-Section A only Date of Service: 02/10/24 The patient is an INPATIENT: No Changes since office visit: No Cold of Flu in the past 2 weeks, No New Medical Problems, No Changes in Medication and No Patient answered all questions The patient has been examined within 24 hours of the surgical procedure. The History & Physical has been completed within 30 days and I have reviewed it.: Yes Section B - Complete if H&P > 30 days Chief Complaint: Polyp of corpus uteri Allergies: Allergies Allergy/AdvReac Type Severity Reaction Status Date / Time montelukast [From Singulair] Allergy Severe Anaphylaxis, Verified 02/10/24 12:50 rash peanut Allergy Severe Anaphylaxis Verified 02/10/24 12:50 strawberry Allergy rash Verified 02/10/24 12:50 wheat Allergy rash Verified 02/10/24 12:50 lisinopril AdvReac cough Verified 02/10/24 12:50 milk AdvReac rash Verified 02/10/24 12:50 soy AdvReac Abdominal Verified 02/10/24 12:50 Pain eggs Allergy rash Uncoded 02/10/24 12:50 seafood AdvReac rash Uncoded 02/10/24 12:50 Plan Diagnosis/Plan: Unchanged I have reviewed the history and physical and performed a pertinent physical examination on my patient. No changes have occurred unless specified. Time Spent With Patient Time: Total time managing care of this patient today ____ minutes.
--- NOTE | 2024-02-10 13:24 | HO.ANESPROP2 ---
HPI - Anesthesia Eval Consult details Narrative: 43 yo F presenting for D&C hysteroscopy PMF Active Problems Active Problems: All Active Problems Well woman exam (Acute) Arthritis of both knees (Acute) Endometrial polyp (Acute) Enlarged uterus (Acute) Mixed anxiety and depressive disorder (Acute) Hx of iron deficiency anemia (Acute) Moderate asthma with allergic rhinitis (Acute) Morbid obesity due to excess calories (Acute) Essential hypertension (Acute) GERD (gastroesophageal reflux disease) (Acute) Past Medical History Medical History Mixed anxiety and depressive disorder Hx of iron deficiency anemia Osteoarthritis of right knee Iron deficiency anemia Vitamin D deficiency Moderate asthma with allergic rhinitis Asthma Allergic rhinitis Morbid obesity due to excess calories Essential hypertension GERD (gastroesophageal reflux disease) Family History Family History Father Colon cancer Mother HTN (hypertension) Stroke Brother Encephalitis Substance use disorder Mental health disorder Brother No problems noted. Daughter No problems noted. Daughter No problems noted. Maternal Uncle History of liver cancer Family history of problems with anesthesia: No Surgical History Surgical History (Updated 02/10/24 @ 12:50 by Melissa Vega) History of excision of mass History of tubal ligation History of Problems with Anesthesia: No Social History Social History Housing: Apartment Alcohol intake: current Alcohol intake frequency: holidays/special occasions only Patient Tobacco Use Status: Never used Tobacco Years Smoked: 2 e-Cigarette/Vaping Use: Never Used Use of substances other than those prescribed or required for medical reasons: No Are you DNR?: No Advance Directives: No Advance Directives Information Provided: Yes Current occupational status: employed 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 Cognitive needs: No Hearing needs: No Vision needs: No Meds Allergies Allergy/AdvReac Type Severity Reaction Status Date / Time montelukast [From Singulair] Allergy Severe Anaphylaxis, Verified 02/10/24 12:50 rash peanut Allergy Severe Anaphylaxis Verified 02/10/24 12:50 strawberry Allergy rash Verified 02/10/24 12:50 wheat Allergy rash Verified 02/10/24 12:50 lisinopril AdvReac cough Verified 02/10/24 12:50 milk AdvReac rash Verified 02/10/24 12:50 soy AdvReac Abdominal Verified 02/10/24 12:50 Pain eggs Allergy rash Uncoded 02/10/24 12:50 seafood AdvReac rash Uncoded 02/10/24 12:50 Exam Exam Date and Time: February 10, 2024 1325 Height,Weight and Vital Signs: Height 5 ft 4 in Weight 102.058 kg Last Vital Signs Temp 99.0 F 02/10/24 13:02 Pulse 94 02/10/24 13:02 Resp 16 02/10/24 13:02 BP 154/83 H 02/10/24 13:02 Pulse Ox 100 02/10/24 13:02 O2 Del Method Room Air 02/10/24 13:02 Pertinent Lab Results Pertinent Lab Results: Laboratory Tests 02/10/24 12:20 Urine Test NEGATIVE Airway Mallampati Class: II TM Dist: >3cm Neck ROM: Full Loose/Missing/Broken Teeth: No (patient denies any loose or broken teeth) Heart: S1S2 Lungs: CTAB Assessment and Plan Assessment Anesthesia Assessment: Anesthesia Plan Discussed and Chart Reviewed Final Anesthetic Review Family History of Problems with Anesthesia: No History of Problems with Anesthesia: No NPO: Yes ASA Class: II Final Preanesthetic Review: No Changes in Pt Med Stat, Meds/Allgs Chart Reviewed, Consent Obtained/Reviewed and Anes Risks/Benef Reviewed Patient Risk: Low Procedure Risk: Low Anesthetic Plan Anesthetic Plan: GA and Agree w/ Assess. and Plan Disposition: Standard PACU
[2024-02-10] MEDS: Lactated Ringers 1,000 ML 80 ML IVCONT (13:29)
--- NOTE | 2024-02-10 13:55 | MHC.SHP ---
Pre-Procedural Eval Section A - 24 Hr Update-Section A only Date of Service: 02/10/24 Section B - Complete if H&P > 30 days Chief Complaint: Polyp of corpus uteri Details of Present Illness: The patient had a bottle of water on her way in to the hospital Allergies: Allergies Allergy/AdvReac Type Severity Reaction Status Date / Time montelukast [From Singulair] Allergy Severe Anaphylaxis, Verified 02/10/24 12:50 rash peanut Allergy Severe Anaphylaxis Verified 02/10/24 12:50 strawberry Allergy rash Verified 02/10/24 12:50 wheat Allergy rash Verified 02/10/24 12:50 lisinopril AdvReac cough Verified 02/10/24 12:50 milk AdvReac rash Verified 02/10/24 12:50 soy AdvReac Abdominal Verified 02/10/24 12:50 Pain eggs Allergy rash Uncoded 02/10/24 12:50 seafood AdvReac rash Uncoded 02/10/24 12:50 Plan I have reviewed the history and physical and performed a pertinent physical examination on my patient. Since the patient had water on the way in and is not NPO will cancel the procedure today and reschedule in 1-2 weeks All questions answered, the patient verbalized understanding and agreed with the plan. Instructions given the patient to call the office and reschedule the procedure within 1-2 weeks Time Spent With Patient Time: Total time managing care of this patient today ____ minutes.
--- NOTE | 2024-02-10 13:56 | PC.NURSE ---
Mariam BARRAZA at bedside discussing preop water intake with patient. Research/Program Director at bedside. Dr. Stovall also at bedside. Anesthesia recommending to wait a full two hours since last water intake. Patient does not want to wait, requests to be rescheduled. Case cancelled. Dr. Kimberly mayberry.
== END ==
LOC: HO.SSS 12:07
PROVIDERS: PCP Internal Medicine; Visit Provider Obstetrics & Gynecology
DX: N84.0 Polyp of corpus uteri (principal); Z53.8 Procedure and treatment not carried out for other reasons
CPT/HCPCS: 81025; J1100; J1885; J2250; J2405; J2704; J3010

== ENCOUNTER 2024-02-16 10:20 | Outpatient (AMB) | payer OTHER, SELFPAY ==
[2024-02-16 10:36] VITALS: BP 154/92; PULSE 79; O2SAT 98; BMI 40.3
--- NOTE | 2024-02-16 10:36 | MHC.PC.OV ---
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 Accompanied by: Self / Same As Patient Allergies montelukast [From Singulair] Allergy (Severe, Verified 02/16/24 11:44) Anaphylaxis, rash peanut Allergy (Severe, Verified 02/16/24 11:44) Anaphylaxis strawberry Allergy (Verified 02/16/24 11:44) rash wheat Allergy (Verified 02/16/24 11:44) rash lisinopril Adverse Reaction (Verified 02/16/24 11:44) cough milk Adverse Reaction (Verified 02/16/24 11:44) rash soy Adverse Reaction (Verified 02/16/24 11:44) Abdominal Pain eggs Allergy (Uncoded 02/16/24 11:44) rash seafood Adverse Reaction (Uncoded 02/16/24 11:44) rash Medication List - Last Reconciled 02/16/24 by Teresa Maddox MD albuterol sulfate 90 mcg/actuation 2 inhalations inhalation QID PRN amlodipine 5 mg PO DAILY 90 days cetirizine 10 mg PO DAILY cholecalciferol (vitamin D3) 50 mcg PO DAILY famotidine 40 mg PO DAILY fluticasone propionate 50 mcg/actuation 1 spray intranasal DAILY PRN hydroxyzine HCl 25 mg PO BID PRN mometasone-formoterol 200-5 mcg/actuation (Dulera) 2 puffs inhalation Q12H 30 days Tobacco use date assessed: 02/16/24 Dental Screening Dental Screen Date: 02/16/24 Did you have a dental visit in the last 12 months?: Yes Did you have a dental problem in the last 6 months where you did not have access to dental care?: No Was dental information given to patient?: Patient has dentist HPI Annual PE HPI Details 43-year-old lady with mild intermittent asthma, allergic rhinitis, hypertension, GERD, mixed anxiety depression, arthritis in both knees and morbid obesity, here today for physical exam. She sees Dr. Harris for her routine Pap and pelvi exam, last Pap smear was done in 2020 with negative findings, she is currently being evaluated for an endometrial polyp and thickened endometrial lining. She is up-to-date with her screening mammogram, done earlier this year with benign findings. Blood pressure today elevated. Patient however denies any chest pain or headache, no lightheadedness or shortness of breath or palpitations. Has bronchial asthma currently stable and controlled on Dulera She has anxiety attacks, takes hydroxyzine as needed, which has been helping. [facility] Medical History Mixed anxiety and depressive disorder Hx of iron deficiency anemia Osteoarthritis of right knee Iron deficiency anemia Vitamin D deficiency Moderate asthma with allergic rhinitis Asthma Allergic rhinitis Morbid obesity due to excess calories Essential hypertension GERD (gastroesophageal reflux disease) Surgical History History of excision of mass History of tubal ligation Family History (Updated 02/16/24 @ 11:54 by Teresa Maddox MD) Father Colon cancer Mother HTN (hypertension) Stroke Brother Encephalitis Substance use disorder Mental health disorder Brother No problems noted. Daughter No problems noted. Daughter No problems noted. 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 1. Little interest or pleasure in doing things: not at all 2. Feeling down, depressed, or hopeless: not at all 3. Trouble falling or staying asleep, or sleeping too much: not at all 4. Feeling tired or having little energy: not at all 5. Poor appetite or overeating: not at all 6. Feeling bad about yourself - or that you are a failure or have let yourself or your family down: not at all 7. Trouble concentrating on things, such as reading the newspaper or watching television: not at all 8. Moving or speaking so slowly that other people could have noticed. Or the opposite - being so fidgety or restless that you have been moving around a lot more than usual: not at all 9. Thoughts that you would be better off or of hurting yourself in some way: not at all Total score: 0 Depression Screening Interpretation: Negative Depression Screening Done: Yes 79766 - PHQ-9 Billing: Yes Source: Developed by Drs. Prateek Burkett, Lesia Rockwell, Josiah Hernandez and colleagues, with an educational teresa from [employer]. Thrive Questionnaire Date Thrive assessed: 02/16/24 I am a: Patient What is your living situation today?: I choose not to answer this question Within the past 12 months, did the food you bought not last and you didn't have the money to get more?: I choose not to answer this question Within the past 12 months, did you worry whether your food would run out before you got money to buy more?: I choose not to answer this question Do you have trouble paying for medicines?: No Do you have trouble getting transportation to medical appointments?: No Do you have trouble paying your heating and electricity bill?: No Do you have trouble taking care of your child, family member or friend?: No Do you have trouble with day-to-day activities such as bathing, preparing meals, shopping, managing finances, etc.?: No Are you currently unemployed and looking for a job?: No Are you interested in more education?: No Please select the resources that you would like help with: Housing/Half-Way Currently or been in a relationship where the following occur: I choose not to answer THRIVE Score: 0 AUDIT C Alcohol Use Questionnaire (AUDIT-C) 1. How often do you have a drink containing alcohol?: Monthly or less 2. How many drinks containing alcohol do you have on a typical day when you are drinking?: 1 or 2 3. How often do you have six or more drinks on one occasion?: Never Total Score: 1 Score Reviewed/Action Taken: Yes RENETTA-7 AMB Questionnaire RENETTA-7 Date RENETTA - 7 assessed: 02/16/24 Feeling nervous, anxious, or on edge: 0 = Not at all Not being able to stop or control worryin = Not at all Worrying too much about different things: 0 = Not at all Trouble relaxin = Not at all Being so restless that it is hard to sit still: 0 = Not at all Becoming easily annoyed or irritable: 0 = Not at all Feeling afraid as if something awful might happen: 0 = Not at all Total RENETTA-7 score (0-4 normal; 5-9 mild; 10-14 moderate; 15-21 severe): 0 Source: Developed by Drs. Prateek Burkett, Lesia Rockwell, Josiah Hernandez and colleagues, with an educational teresa from [employer]. RENETTA-7 Assessment Billing RENETTA-7 Assessment Tool: RENETTA-7 Assessment 88793 Review of Systems Const Denies poor appetite and Denies weakness Eyes Denies change in vision ENT Denies vertigo and Denies dizziness Card Denies chest pain, Denies syncope, Denies irregular heart rhythm, Denies lightheadedness and Denies dyspnea Resp Denies cough and Denies dyspnea GI Denies abdominal pain, Denies dyspepsia, Denies heartburn and Denies nausea Denies hematuria and Denies dysuria Musc Reports as per HPI, Denies joint swelling and Denies limited range of motion Skin/Breast Denies breast pain, Denies breast mass and Denies rash Neuro Denies vertigo, Denies dizziness, Denies syncope, Denies focal weakness and Denies weakness Psych Reports no additional complaints Endo Reports no additional complaints Jese/Lymph Reports no additional complaints Aller/Immun Reports no additional complaints Physical exam (Primary Care) Vital Signs: Last Vital Signs Pulse 79 02/16/24 10:36 BP 154/92 H 02/16/24 10:36 Pulse Ox 98 02/16/24 10:36 BMI result Body Mass Index 40.3 Tobacco/Smoking Status: Tobacco use Status Tobacco use date assessed 02/16/24 02/16/24 10:38 Patient Tobacco Use Status Never used Tobacco 02/16/24 10:38 e-Cigarette/Vaping Use Never Used 02/16/24 10:38 PHQ-9: PHQ-9 Score PHQ-9: Total score 0 02/16/24 11:46 Depression Screening Interpretation: Negative Thrive Assessment: Date of Thrive Assessment Date Thrive assessed 02/16/24 02/16/24 10:38 Currently or been in a relationship where the following occur: I choose not to answer Const General: comfortable, no acute distress, alert and awake Nutritional Appearance: obese morbidly obese Orientation/consciousness: patient oriented x3 HENMT Head: Yes normocephalic Face and sinus: Yes face symmetric Mouth: Normal oral and palatal mucosa present, oropharynx normal and moist mucous membranes Eyes General: appearance normal, both eyes and all related structures Neck Neck: Yes full ROM, Yes no lymphadenopathy and Yes supple Chest Chest palpation & inspection: normal inspection of the chest Breast/axilla palpation: normal palpation of the breasts Resp Auscultation: clear to auscultation bilaterally Cardio Rate: regular rate Rhythm: regular rhythm Heart sounds: S1 normal heart sound present and S2 normal heart sound present GI Inspection: Yes obesity Palpation (GI): Soft to palpation, nontender and no guarding Auscultation: normal bowel sounds General: Yes no CVA tenderness Back/Spine/Pelvis Back: no CVA tenderness Skin Other: sees Dr Rodgers Lesions: no lesions Rashes: no rashes Neuro General: patient oriented x3 Extrem General: Yes no joint enlargement, Yes no clubbing, cyanosis or edema, Yes normal gait and Yes other (Crepitus positive in knees) Psych Appearance: grossly normal and well kempt Mental Status: mental status grossly normal Speech and movement: Normal speech and movement present Affect: normal affect Attitude: cooperative Thought process: Normal thought process present Results Reviewed Results Reviewed: Name: Olivia Ceron I Age/Sex: 43/F : 1980 Unit#: [id number] Attend Dr: Javan Harris MD Re02/07/24 Status: DEP REF Location: .LAB Disch: SPEC : [id number] LELO: 02/07/24 STATUS: COMP REQ : [id number] RECD: 02/07/[address]: Javan Harris MD COMP: 02/07/24 ENTERED: 02/07/[address]: Teresa Maddox MD ORDERED: CBC No Diff Test Result Flag Reference WBC 6.7 4.8-10.8 X10*3/uL RBC 4.39 4.20-5.50 X10*6/uL HGB 12.2 12.0-16.0 g/dl HCT 37.8 37.0-47.0 % MCV 86.1 80.0-98.0 fL MCH 27.8 27.0-33.0 pg MCHC 32.3 31.0-35.0 g/dl RDW 15.1 11.0-16.0 % PLT 382 160-400 X10*3/uL MPV 9.7 9.4-12.3 fL NRBC Pct Auto 0.0 0.0-0.2 /100WBC NRBC Abs Auto 0.000 0.0-0.012 X10*3/uL Name: Olivia Ceron I Age/Sex: 43/F : 1980 Unit#: [id number] Attend Dr: Teresa Maddox MD Re01/24/24 Status: DEP REF Location: [facility] [address] Disch: SPEC : [id number] LELO: 01/24/24 STATUS: COMP REQ : [id number] RECD: 01/24/24-[address]: Teresa Maddox MD COMP: 01/24/24 ENTERED: 01/24/[address] [facility] [address]: ORDERED: Met Prof Fast, Lipid Panel Test Result Flag Reference Sodium 140 135-145 mmol/L Potassium 4.0 3.3-5.1 mmol/L CL 107 96-108 mmol/L CO2 26 22-29 mmol/L Gap 11 L 12-20 BUN 15 9-16 mg/dL Creat 0.82 0.5-1.4 mg/dL EGFR > 60 NOTE: For -[place] individuals, multiply the result by 1.210. Chronic Kidney Disease: Estimated GFR < 60 mL/min/1.73m2 Severe Kidney Disease: Estimated GFR < 15 mL/min/1.73m2 FBS 84 60-99 mg/dL CA 9.4 8.4-10.2 mg/dL Triglyceride 51 <150 mg/dL Desirable Triglyceride: less than 150 mg/dL Borderline High Triglyceride 150-199 mg/dL High Triglyceride: 200-499 mg/dL Very High Triglyceride: greater than or equal to 5OO mg/dL Cholesterol 190 <200 mg/dL Desirable Cholesterol: less than 200 mg/dL Borderline High Cholesterol: 200-239 mg/dL High Cholesterol: greater than 239 mg/dL LDL Calculated 122 H <100 mg/dL Desirable LDL: less than 100 mg/dL Near Optimal/Above Optimal LDL: 110-129 mg/dL Borderline High LDL: 130-159 mg/dL High LDL: 160-189 mg/dL Very High LDL: greater than or equal to 190 mg/dL HDL 58 >40 mg/dL Desirable HDL: greater than 40 mg/dL Note: This HDL assay may give artificially low results in patients with liver disease. Laboratory Tests 02/07/24 11:14 TSH 1.17 Assessment and Plan Assessment & Plan (1) Annual visit for general adult medical examination with abnormal findings: Code(s): Z00.01 - Encounter for general adult medical examination with abnormal findings Plan: Reviewed results of recent fasting lab results with patient Recommended dental visit every 6 months and regular eye exams, at least every 2 years. Take adequate calcium in diet and vitamin-D 3 at 2000 IU per cap once a day, in addition to weight-bearing exercises to help maintain good muscle tone and weight control. Instructed to do self-breast exam, and recommended to continue yearly mammogram, currently up-to-date. 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 Referred to GI Clinic for initial screening colonoscopy. Has had COVID vaccines in the past but does not want to get booster nor does she want to get a flu shot. (2) Encounter for screening for malignant neoplasm of colon: Code(s): Z12.11 - Encounter for screening for malignant neoplasm of colon Plan: Referral to GI Clinic for her initial screening colonoscopy. (3) Mixed anxiety and depressive disorder: Code(s): F41.8 - Other specified anxiety disorders Plan: Currently stable controlled, takes hydroxyzine as needed (4) Essential hypertension: Code(s): I10 - Essential (primary) hypertension Plan: Blood pressure elevated today, will continue on amlodipine 5 mg daily and will add hydrochlorothiazide 12.5 mg 1 tablet in a.m. together with amlodipine. Reinforced importance of following a low-salt diet and getting regular exercise. Schedule appointment with nurse navigator in a week to check blood pressure (5) GERD (gastroesophageal reflux disease): Code(s): K21.9 - Gastro-esophageal reflux disease without esophagitis Plan: Takes famotidine 40 mg daily (6) Endometrial polyp: Code(s): N84.0 - Polyp of corpus uteri Plan: Followed by Dr. Harris (7) Moderate asthma with allergic rhinitis: Code(s): J45.40 - Moderate persistent asthma, uncomplicated Qualifiers: Asthma persistence: unspecified Asthma complication type: uncomplicated Qualified Code(s): J45.909 - Unspecified asthma, uncomplicated Plan: Continue with Dulera 2 inhalations every 12 hours and she has albuterol inhaler to use as needed for episodes of bronchospasm and wheezing. Orders: Referrals Gastroenterology Referral Z12.11 - Encounter for screening for malignant neoplasm of colon Medications: New hydrochlorothiazide 12.5 mg PO QAM 30 caps 2RF Coding Level of Care Code Est Pt Prev Care 40-64y(84735) Diagnoses Annual visit for general adult medical examination with abnormal findings Z00.01 Encounter for screening for malignant neoplasm of colon Z12.11 Mixed anxiety and depressive disorder F41.8 Essential hypertension I10 GERD (gastroesophageal reflux disease) K21.9 Endometrial polyp N84.0 Moderate asthma with allergic rhinitis without complication, unspecified whether persistent J45.909 Asthma persistence: unspecified Asthma complication type: uncomplicated Additional Codes RENETTA-7 Assessment Billing - RENETTA-7 Assessment Tool: RENETTA-7 Assessment [id number] ([id number])
== END 2024-02-16 12:34 | disposition home or self-care (01) ==
PROVIDERS: PCP Internal Medicine; Visit Provider Internal Medicine
DX: Z00.00 Encounter for general adult medical examination without abnormal findings (principal); I10 Essential (primary) hypertension; Z12.11 Encounter for screening for malignant neoplasm of colon; F41.8 Other specified anxiety disorders; K21.9 Gastro-esophageal reflux disease without esophagitis; N84.0 Polyp of corpus uteri; J45.909 Unspecified asthma, uncomplicated
CPT/HCPCS: 99213; 99396

== ENCOUNTER 2024-03-02 06:38 | Day surgery (SDC) | payer OTHER, SELFPAY ==
--- NOTE | 2024-02-15 13:30 | P.CONAN_ITS ---
Documented by User: Aracely Garnica NP 02/29/24 13:04 HPI - Anesthesia Eval Consult details Narrative: 43yo F for D&C Hysteroscopy possible myomectomy/polypectomy, 03/02/24 [facility] Active Problems Active Problems: All Active Problems Well woman exam (Acute) Arthritis of both knees (Acute) Endometrial polyp (Acute) Enlarged uterus (Acute) Mixed anxiety and depressive disorder (Acute) Hx of iron deficiency anemia (Acute) Moderate asthma with allergic rhinitis (Acute) Morbid obesity due to excess calories (Acute) Essential hypertension (Acute) GERD (gastroesophageal reflux disease) (Acute) Past Medical History Medical History Mixed anxiety and depressive disorder Hx of iron deficiency anemia Osteoarthritis of right knee Iron deficiency anemia Vitamin D deficiency Moderate asthma with allergic rhinitis Asthma Allergic rhinitis Morbid obesity due to excess calories Essential hypertension GERD (gastroesophageal reflux disease) Family History Family History Father Colon cancer Mother HTN (hypertension) Stroke Brother Encephalitis Substance use disorder Mental health disorder Brother No problems noted. Daughter No problems noted. Daughter No problems noted. Maternal Uncle History of liver cancer Maternal Grandmother Schizophrenia Family history of problems with anesthesia: No Surgical History Surgical History History of excision of mass History of tubal ligation History of Problems with Anesthesia: No Social History Social History Housing: Apartment Alcohol intake: current Alcohol intake frequency: holidays/special occasions only Patient Tobacco Use Status: Never used Tobacco Years Smoked: 2 e-Cigarette/Vaping Use: Never Used Use of substances other than those prescribed or required for medical reasons: No Are you DNR?: No Advance Directives: No Advance Directives Information Provided: Yes Current occupational status: employed 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 Cognitive needs: No Hearing needs: No Vision needs: No Meds Allergies Allergy/AdvReac Type Severity Reaction Status Date / Time montelukast [From Singulair] Allergy Severe Anaphylaxis, Verified 03/02/24 07:20 rash peanut Allergy Severe Anaphylaxis Verified 03/02/24 07:20 strawberry Allergy rash Verified 03/02/24 07:20 wheat Allergy rash Verified 03/02/24 07:20 lisinopril AdvReac cough Verified 03/02/24 07:20 milk AdvReac rash Verified 03/02/24 07:20 soy AdvReac Abdominal Verified 03/02/24 07:20 Pain eggs Allergy rash Uncoded 03/02/24 07:20 seafood AdvReac rash Uncoded 03/02/24 07:20 Home Medications ?Medication ?Instructions ?Recorded ?Confirmed ?Last Taken ?Type cholecalciferol (vitamin D3) 50 50 mcg PO DAILY 02/16/24 03/02/24 Unknown History mcg (2,000 unit) capsule Assessment and Plan Assessment Anesthesia Assessment: Chart Reviewed Final Anesthetic Review Family History of Problems with Anesthesia: No History of Problems with Anesthesia: No Documented by User: Latonia Bourgeois MD 03/02/24 08:07 [facility] Past Medical History Medical History Mixed anxiety and depressive disorder Hx of iron deficiency anemia Osteoarthritis of right knee Iron deficiency anemia Vitamin D deficiency Moderate asthma with allergic rhinitis Asthma Allergic rhinitis Morbid obesity due to excess calories Essential hypertension GERD (gastroesophageal reflux disease) Family History Family History Father Colon cancer Mother HTN (hypertension) Stroke Brother Encephalitis Substance use disorder Mental health disorder Brother No problems noted. Daughter No problems noted. Daughter No problems noted. 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 Cognitive needs: No Hearing needs: No Vision needs: No Meds Allergies Allergy/AdvReac Type Severity Reaction Status Date / Time montelukast [From Singulair] Allergy Severe Anaphylaxis, Verified 03/02/24 07:20 rash peanut Allergy Severe Anaphylaxis Verified 03/02/24 07:20 strawberry Allergy rash Verified 03/02/24 07:20 wheat Allergy rash Verified 03/02/24 07:20 lisinopril AdvReac cough Verified 03/02/24 07:20 milk AdvReac rash Verified 03/02/24 07:20 soy AdvReac Abdominal Verified 03/02/24 07:20 Pain eggs Allergy rash Uncoded 03/02/24 07:20 seafood AdvReac rash Uncoded 03/02/24 07:20 Home Medications ?Medication ?Instructions ?Recorded ?Confirmed ?Last Taken ?Type cholecalciferol (vitamin D3) 50 50 mcg PO DAILY 02/16/24 03/02/24 Unknown History mcg (2,000 unit) capsule Exam Airway Mallampati Class: II TM Dist: >3cm Neck ROM: Full Loose/Missing/Broken Teeth: No Heart: RRR Lungs: CTA Assessment and Plan Assessment Anesthesia Assessment: Anesthesia Plan Discussed Final Anesthetic Review NPO: Yes ASA Class: II Final Preanesthetic Review: Meds/Allgs Chart Reviewed, Consent Obtained/Reviewed and Anes Risks/Benef Reviewed Patient Risk: Low Procedure Risk: Low Anesthetic Plan Anesthetic Plan: GA Disposition: Standard PACU
[2024-02-29 09:12] VITALS: BMI 41.5
[2024-03-02 07:30] LABS: UPreg QC Valid YES; Urine Pregnancy NEGATIVE (NEGATIVE)
--- NOTE | 2024-03-02 07:34 | MHC.SHP ---
Pre-Procedural Eval Section A - 24 Hr Update-Section A only Date of Service: 03/02/24 The patient is an INPATIENT: No Changes since office visit: No Cold of Flu in the past 2 weeks, No New Medical Problems, No Changes in Medication and No Patient answered all questions The patient has been examined within 24 hours of the surgical procedure. The History & Physical has been completed within 30 days and I have reviewed it.: Yes Section B - Complete if H&P > 30 days Chief Complaint: Abnormal uterine and vaginal bleeding, unspecified Allergies: Allergies Allergy/AdvReac Type Severity Reaction Status Date / Time montelukast [From Singulair] Allergy Severe Anaphylaxis, Verified 03/02/24 07:20 rash peanut Allergy Severe Anaphylaxis Verified 03/02/24 07:20 strawberry Allergy rash Verified 03/02/24 07:20 wheat Allergy rash Verified 03/02/24 07:20 lisinopril AdvReac cough Verified 03/02/24 07:20 milk AdvReac rash Verified 03/02/24 07:20 soy AdvReac Abdominal Verified 03/02/24 07:20 Pain eggs Allergy rash Uncoded 03/02/24 07:20 seafood AdvReac rash Uncoded 03/02/24 07:20 Plan Diagnosis/Plan: Unchanged I have reviewed the history and physical and performed a pertinent physical examination on my patient. No changes have occurred unless specified. Time Spent With Patient Time: Total time managing care of this patient today ____ minutes.
[2024-03-02 07:43] VITALS: BP 152/92; PULSE 97; RESP 16; TEMP 36.8; O2SAT 99
[2024-03-02] MEDS: Lactated Ringers 1,000 ML 100 ML IVCONT (07:52)
[2024-03-02 08:55] VITALS: BP 150/96; PULSE 95; RESP 14; TEMP 36.6; O2SAT 100
--- NOTE | 2024-03-02 08:57 | P.BOP_ITS ---
Brief Operative Note Date of Service: 03/02/24 Pre-op diagnosis: Endometrial polyp by ultrasound Post-op diagnosis: same (Endometrial polyp) Procedure: Hysteroscopy D&C, Polypectomy Surgeon: Javan Harris MD Anesthesia: GLMA Was an Printing Film Stripper used for this Procedure?: No Estimated blood loss (mL): 0 Pathology: other (Endometrial Scrapping. Polyp) Condition: stable Disposition: PACU
--- NOTE | 2024-03-02 08:58 | P.OP_ITS ---
Operative Note Operative Note Date of Service: 03/02/24 Narrative: Preop Diagnosis: Endometrial polyp by US Operation: Diagnostic Hysteroscopy, Dilataion & Curettage and polypectomy Post Op Diagnosis: Endometrial Polyp QBL: Minimal Anesthesia: GLMA Surgeon: Javan Harris MD [employer] Aisle Cashier: None Complication: None Pathology: Endometrial Scrapings, Endometrial polyp Procedure: The patient was put in the dorsal lithotomy position, scrubbed, and draped in the usual manner. A sterile speculum was inserted in the patient's vagina. The anterior lip of the cervix was grasped with a single tooth tenaculum. The cervix was dilated up to 5 mm, then the scope was inserted in the patient's uterus. Inspection revealed endometrial polyp. The Myosure Reach device was used; it was introduced through the operative channel and polypectomy done with no complications. The scope was then taken out from the uterine cavity, sharp curettings was carried on with minimal to moderate amount of tissues retrieved. At the end of the procedure, all instruments were taken out of the patient uterine and vaginal cavity. The single tooth tenaculum was removed and homeostasis was assured using pressure,. The patient tolerated the procedure well and was transferred to the PACU in a stable condition.
[2024-03-02 09:00] VITALS: BP 146/89; PULSE 90; RESP 14; O2SAT 100
[2024-03-02 09:05] VITALS: BP 145/90; PULSE 90; RESP 14; O2SAT 100
[2024-03-02 09:10] VITALS: BP 142/88; PULSE 95; RESP 15; O2SAT 100
[2024-03-02 09:25] VITALS: BP 150/89; PULSE 67; RESP 16; TEMP 36.6; O2SAT 100
== END 2024-03-02 10:00 | disposition home or self-care (01) ==
PROVIDERS: PCP Internal Medicine; Visit Provider Obstetrics & Gynecology
PROC: 0UDB8ZZ Extraction of Endometrium, Via Natural or Artificial Opening Endoscopic (ICD-10-PCS; CPT 58558; principal; 2024-03-02 08:30)
DX: N93.9 Abnormal uterine and vaginal bleeding, unspecified (principal); N84.0 Polyp of corpus uteri; I10 Essential (primary) hypertension; D50.9 Iron deficiency anemia, unspecified; J45.909 Unspecified asthma, uncomplicated; K21.9 Gastro-esophageal reflux disease without esophagitis; E66.01 Morbid (severe) obesity due to excess calories; Z68.41 Body mass index [BMI] 40.0-44.9, adult; Z79.51 Long term (current) use of inhaled steroids; Z79.899 Other long term (current) drug therapy; Z91.012 Allergy to eggs; Z91.010 Allergy to peanuts; Z91.013 Allergy to seafood; Z91.018 Allergy to other foods; Z98.51 Tubal ligation status; Z98.890 Other specified postprocedural states; Z87.891 Personal history of nicotine dependence
CPT/HCPCS: 58558; 81025; 88305; J1100; J1885; J2250; J2405; J2704; J3010

== ENCOUNTER → 2024-03-02 06:38 | Outpatient (BNV) | payer OTHER, SELFPAY | PROVIDERS: PCP Internal Medicine; Visit Provider Obstetrics & Gynecology | DX: N84.0 Polyp of corpus uteri (principal); N93.9 Abnormal uterine and vaginal bleeding, unspecified | CPT/HCPCS: 58558 ==

== ENCOUNTER 2024-03-27 07:34 | Outpatient (AMB) | payer OTHER, SELFPAY ==
--- NOTE | 2024-03-27 08:14 | MHC.OFFVIS ---
Vital Signs 03/27/24 08:18 Height 5 ft 4 in Weight 242 lb BMI 41.5 BP 130/80 Intake Visit Reasons: post op Cellar Worker Required: Yes Cellar Worker Language: Die Equipment Operator Services: Cellar Worker Present (in person) Cellar Worker Name: Yue MUSTAFA Information Interpreted: non-clinical & clinical Accompanied by: Self / Same As Patient Allergies montelukast [From Singulair] Allergy (Severe, Verified 03/27/24 08:19) Anaphylaxis, rash peanut Allergy (Severe, Verified 03/27/24 08:19) Anaphylaxis strawberry Allergy (Verified 03/27/24 08:19) rash wheat Allergy (Verified 03/27/24 08:19) rash lisinopril Adverse Reaction (Verified 03/27/24 08:19) cough milk Adverse Reaction (Verified 03/27/24 08:19) rash soy Adverse Reaction (Verified 03/27/24 08:19) Abdominal Pain eggs Allergy (Uncoded 03/27/24 08:19) rash seafood Adverse Reaction (Uncoded 03/27/24 08:19) rash HPI Comments Details: The patient is presenting post hysteroscopy D&C no complaints minimal vaginal bleeding no feverishness chills or abdominal pain. The pathology showed the following: A. Endometrial polyp, resection: Fragments of benign endometrial polyp and benign proliferative endometrium; no atypia or carcinoma. B. Endometrium, curettage: Benign proliferative endometrium with focal gland crowding and stromal collapse (no definitive hyperplasia), fragments suggestive of benign polyps, and scant benign endocervical glandular epithelium; no atypia or carcinoma. The following workup was done.: H&H= 12.2/37.8 TSH, prolactin, hCG, GC and chlamydia were negative. Last co testing 2020 was negative Mammogram was BI-RADS 1 Pelvic ultrasound showed the following: IMPRESSION: 1. Endometrial thickness is 12 mm. Endometrium appears echogenic. 1.2 x 0.7 x 0.9 cm echogenic focus is concerning for an endometrial polyp. Gynecologic consultation recommended to determine further management. 2. Unremarkable bilateral ovaries. 3. No significant free fluid. [facility] Medical History Mixed anxiety and depressive disorder Hx of iron deficiency anemia Osteoarthritis of right knee Iron deficiency anemia Vitamin D deficiency Moderate asthma with allergic rhinitis Asthma Allergic rhinitis Morbid obesity due to excess calories Essential hypertension GERD (gastroesophageal reflux disease) Surgical History History of excision of mass History of tubal ligation Family History Father Colon cancer Mother HTN (hypertension) Stroke Brother Encephalitis Substance use disorder Mental health disorder Brother No problems noted. Daughter No problems noted. Daughter No problems noted. 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 The patient was reassured (2) Abnormal uterine bleeding (AUB): Comment: Focal glandular crowding on D&C pathology Code(s): N93.9 - Abnormal uterine and vaginal bleeding, unspecified Category: Medical Plan: Discussed with the patient the results of the work up done and options of treatment including Lysteda, control pills, Mirena IUD, endometrial ablation and hysterectomy. All pros, cons, risks and benefits if each option was discussed with the patient and the patient decided to go ahead with Mirena IUD so a more detailed discussion about it was conducted including mechanism of action, risks (uterine perforation, infection, injury to bladder, bowel, displacement, and others) benefits (hypo menorrhea, amenorrhea, ...). GC/CT were recently taken and were negative and the patient was instructed to schedule Mirena IUD insertion on day 1-5 of next cycle, and schedule an apt for a repeat emb in 3 months . All questions answered, the patient verbalized understan Coding Level of Care Code Est Pt Level 3 (34439) Diagnoses Endometrial polyp N84.0 Abnormal uterine bleeding (AUB) N93.9
[2024-03-27 08:18] VITALS: BP 130/80; BMI 41.5
== END 2024-03-27 08:33 | disposition home or self-care (01) ==
PROVIDERS: PCP Internal Medicine; Visit Provider Obstetrics & Gynecology
DX: N84.0 Polyp of corpus uteri (principal); N93.9 Abnormal uterine and vaginal bleeding, unspecified
CPT/HCPCS: 99213

== ENCOUNTER → 2024-03-27 07:34 | Outpatient (BNVA) | payer OTHER, SELFPAY | PROVIDERS: PCP Internal Medicine; Visit Provider Obstetrics & Gynecology | DX: N84.0 Polyp of corpus uteri (principal); N93.9 Abnormal uterine and vaginal bleeding, unspecified | CPT/HCPCS: 99212 ==

== ENCOUNTER 2024-04-04 07:32 | Outpatient (AMB) | payer OTHER, SELFPAY ==
--- NOTE | 2024-04-04 07:33 | A.OFFVIS_ITS ---
Vital Signs 04/04/24 07:41 Height 5 ft 4 in Weight 240 lb 4.862 oz BMI 41.2 BP 122/78 Intake Visit Reasons: Mirena insertion Rug Cleaner Helper Required: Yes Rug Cleaner Helper Language: Scientific Manager Services: Rug Cleaner Helper Present (in person) Rug Cleaner Helper Name: Yue MUSTAFA Information Interpreted: non-clinical & clinical Packaging Designer: Packaging Designer Present (Yue MUSTAFA) Accompanied by: Self / Same As Patient Allergies montelukast [From Singulair] Allergy (Severe, Verified 04/04/24 07:42) Anaphylaxis, rash peanut Allergy (Severe, Verified 04/04/24 07:42) Anaphylaxis strawberry Allergy (Verified 04/04/24 07:42) rash wheat Allergy (Verified 04/04/24 07:42) rash lisinopril Adverse Reaction (Verified 04/04/24 07:42) cough milk Adverse Reaction (Verified 04/04/24 07:42) rash soy Adverse Reaction (Verified 04/04/24 07:42) Abdominal Pain eggs Allergy (Uncoded 04/04/24 07:42) rash seafood Adverse Reaction (Uncoded 04/04/24 07:42) rash Is last menstrual period known: Yes Last menstrual period: 03/30/24 HPI Comments Details: Presenting for Mirena IUD insertion [facility] Medical History Mixed anxiety and depressive disorder Hx of iron deficiency anemia Osteoarthritis of right knee Iron deficiency anemia Vitamin D deficiency Moderate asthma with allergic rhinitis Asthma Allergic rhinitis Morbid obesity due to excess calories Essential hypertension GERD (gastroesophageal reflux disease) Surgical History History of excision of mass History of tubal ligation Family History Father Colon cancer Mother HTN (hypertension) Stroke Brother Encephalitis Substance use disorder Mental health disorder Brother No problems noted. Daughter No problems noted. Daughter No problems noted. 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 Cognitive needs: No Hearing needs: No Vision needs: No Female Reproductive History Menstrual Age of Menarche: 10 Date of last menstrual period: 03/30/24 Review of Systems Const All systems reviewed & are unremarkable except as noted in HPI and below Reports as per HPI and Reports no additional complaints GI Reports no additional complaints Reports no additional complaints Physical Exam Vital Signs: Last Vital Signs BP 122/78 04/04/24 07:41 BMI result Body Mass Index 41.2 Office Procedures IUD Insert/Removal Details Details: The patient is presenting for Mirena IUD insertion Urine test was done in the office and was negative; All the contraindications were excluded. The following possible complications were discussed with the patient: Intrauterine , Ectopic , Sepsis, Pelvic Infection, Irregular Bleeding and Amenorrhea, Perforation, Expulsion, Ovarian Cysts, Breast Cancer, The following adverse effects were discussed with the patient: alteration of menstrual bleeding pattern, including: unscheduled uterine bleeding decreased uterine bleeding increased scheduled uterine bleeding female genital tract bleeding ,amenorrhea , genital discharge , vulvovaginitis , breast pain , benign ovarian cyst and associated complications , dysmenorrhea , Gastrointestinal disorders abdominal/pelvic pain, headache/migraine , back pain , acne , depression Alternative options were discussed with the patient including but not limited: control pills, patch, NuvaRing, Depo-medroxyprogesterone acetate, Nexplanon, copper IUD, sterilization, vasectomy, others The procedure was explained in detail to patient , at the end patient signed the informed consent obtained. A no touch technique was used throughout the procedure. A speculum was placed into vagina and cervix was cleaned with betadine). A tenaculum was placed. A plastic sound was advanced through the external and internal os until it reached the fundus of the uterus, the depth was 8 cm. The sound was then withdrawn. The IUD was loaded in a sterile manner and advanced into position. The string was visualized and cut to 3 cm. Tenaculum site hemostatic. All instruments removed from vagina. Patient tolerated the procedure well. NO complications were noted. Patient was instructed to call for fever over 100.4, significant pain unrelieved by Motrin, IUD expulsion, heavy bleeding, or abnormal discharge. In addition, the following clinical considerations were discussed with the patient to call for removal: A stroke or heart attack ,Very severe or migraine headaches ,Unexplained fever ,Yellowing of the skin or whites of the eyes, as these may be signs of serious liver problems , or suspected , Pelvic pain or pain during sex ,HIV positive seroconversion in herself or her partner , Possible exposure to sexually transmitted infections Unusual vaginal discharge or genital sores , severe vaginal bleeding or bleeding that lasts a long time, or if she misses a menstrual period, Inability to feel Mirena's threads Counseled the patient that the IUD does not protect against STI's, recommended use of condoms for the first 7 days post insertion and explained to the patient that condoms are recommended for patients at risk for sexually transmitted infections. Informed the patient that Mirena IUD is FDA approved for 8 years for contraception for 5 years for the treatment of heavy menses Instructed the patient to schedule a Follow up appointment in 4 to 6 weeks following insertion. This note was generated with a voice recognition program. Some errors may have been overlooked during the review of this note. Sometimes these errors may affect the content or meaning of a given sentence. 01214-RHB Insertion Procedure code (CPT) selection complete Office Meds Mirena 21 mcg/24 hr (up to 8 years) 52 mg intrauterine device Performing Provider: Javan Harris MD Performing Location: [facility] – [place], [place] [facility] Documented (not given) by: Javan Harris MD on 04/04/24 07:49 Dose Route Admin Location Dispensed Lot Number Expiration Date NDC Office Services Representative 1 device intrauterine ea Assessment & Plan Assessment & Plan (1) Encounter for insertion of Mirena IUD: Code(s): Z30.430 - Encounter for insertion of intrauterine contraceptive device Category: Medical Plan: Mirena IUD inserted, see procedure note Orders: Orders AMB IUD Insertion/Removal - Practice Supplied Today Z30.430 - Encounter for insertion of intrauterine contraceptive device Medications: New Mirena (levonorgestrel) 1 device intrauterine ONCE 1 ea 0RF Mirena IUD insertion NS Z30.430 - Encounter for insertion of intrauterine contraceptive device Coding Level of Care Code Procedure Only Diagnoses Encounter for insertion of Mirena IUD Z30.430 CPT Codes Details - CPT: 04784-GKL Insertion ([id number])
[2024-04-04 07:41] VITALS: BP 122/78; BMI 41.2
== END 2024-04-04 07:52 | disposition home or self-care (01) ==
PROVIDERS: PCP Internal Medicine; Visit Provider Obstetrics & Gynecology
DX: Z30.430 Encounter for insertion of intrauterine contraceptive device (principal); Z32.02 Encounter for pregnancy test, result negative
CPT/HCPCS: 58300

== ENCOUNTER → 2024-04-04 07:32 | Outpatient (BNVA) | payer OTHER, SELFPAY | PROVIDERS: PCP Internal Medicine; Visit Provider Obstetrics & Gynecology | DX: Z30.430 Encounter for insertion of intrauterine contraceptive device (principal) | CPT/HCPCS: 58300; 81025; J7298 ==

== ENCOUNTER → 2024-04-13 09:15 | Outpatient (BNVA) | payer OTHER, SELFPAY | PROVIDERS: PCP Internal Medicine ==

== ENCOUNTER 2024-05-15 07:48 | Outpatient (AMB) | payer OTHER, SELFPAY ==
[2024-05-15 08:00] VITALS: BP 126/82; BMI 41.2
--- NOTE | 2024-05-15 08:00 | MHC.OFFVIS ---
Vital Signs 05/15/24 08:00 Height 5 ft 4 in Weight 240 lb 4.862 oz BMI 41.2 BP 126/82 Intake Visit Reasons: STERILIZATION SPECIALIST annual exam/IUD check Technical Proposal Writer Required: Yes Technical Proposal Writer Language: Roof Shingler Services: Technical Proposal Writer Present (in person) Information Interpreted: non-clinical & clinical Radiology Transporter: Radiology Transporter Present (Yue Vincent RAMSEY) Accompanied by: Self / Same As Patient Allergies montelukast [From Singulair] Allergy (Severe, Verified 05/15/24 08:09) Anaphylaxis, rash peanut Allergy (Severe, Verified 05/15/24 08:09) Anaphylaxis strawberry Allergy (Verified 05/15/24 08:09) rash wheat Allergy (Verified 05/15/24 08:09) rash lisinopril Adverse Reaction (Verified 05/15/24 08:09) cough milk Adverse Reaction (Verified 05/15/24 08:09) rash soy Adverse Reaction (Verified 05/15/24 08:09) Abdominal Pain eggs Allergy (Uncoded 05/15/24 08:09) rash seafood Adverse Reaction (Uncoded 05/15/24 08:09) rash Is last menstrual period known: Yes Last menstrual period: 04/20/24 HPI Comments Details: Presenting for annual exam. No complaints. Last Pap/HPV was negative in 01/12 Last Mammogram was BI-RADS 1 in 01/15 The patient had Mirena IUD inserted few weeks ago with no complaint for AUB/endometrial gland crowding on endometrial biopsy with no evidence of hyperplasia. EMB scheduled in 07/17 No previous screening colonoscopy PFSH Medical History Mixed anxiety and depressive disorder Hx of iron deficiency anemia Osteoarthritis of right knee Iron deficiency anemia Vitamin D deficiency Moderate asthma with allergic rhinitis Asthma Allergic rhinitis Morbid obesity due to excess calories Essential hypertension GERD (gastroesophageal reflux disease) Surgical History History of excision of mass History of tubal ligation Family History Father Colon cancer Mother HTN (hypertension) Stroke Brother Encephalitis Substance use disorder Mental health disorder Brother No problems noted. Daughter No problems noted. Daughter No problems noted. 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 Cognitive needs: No Hearing needs: No Vision needs: No Female Reproductive History Menstrual Age of Menarche: 10 Date of last menstrual period: 04/20/24 control method: progestin IUCD and permanent sterilization Date of last pap smear: 12/25/20 Date of Mammogram: 01/03/24 Review of Systems Const All systems reviewed & are unremarkable except as noted in HPI and below Card Reports as per HPI Resp Reports as per HPI GI Reports as per HPI and Reports no additional complaints Reports as per HPI Physical Exam Vital Signs: Last Vital Signs BP 126/82 05/15/24 08:00 BMI result Body Mass Index 41.2 Const General: cooperative, healthy appearing and comfortable Chest Chest palpation & inspection: normal inspection of the chest and normal palpation of entire chest wall Breast/axilla inspection: normal inspection of the breasts and normal inspection of the axillae Breast/axilla palpation: normal palpation of the breasts, normal palpation of the axillae and no axillary lymphadenopathy Resp Effort & Inspection: normal respiratory effort Auscultation: clear to auscultation bilaterally Percussion: percussion normal Cardio Palpation: normal PMI Rate: regular rate Rhythm: regular rhythm Heart sounds: no murmurs and no rubs Peripheral pulses: Peripheral pulses 2+ throughout GI Inspection: Yes normal to inspection Palpation (GI): Soft to palpation, nontender, no guarding, not rigid and No hepatosplenomegaly present Percussion: Yes normal to percussion Auscultation: normal bowel sounds Rectal Exam - Female: deferred General: Yes bladder normal to palpation External Female Exam: No lesion Speculum Exam - Vagina: normal appearance of the vagina, normal palpation, normal vaginal discharge and not erythematous Speculum Exam - Cervix: normal appearance of the cervix, normal palpation and Other cervical findings present (IUD string in place) Bimanual exam- vagina & uterus: normal bimanual exam, normal palpation, uterine size normal, bladder normal to palpation, consistency normal and normal palpation Bimanual Exam- Adnexa, other: normal adnexae, no masses and no tenderness Results AMB Test Urine AMB Test Urine Negative Last Edit by Yue Vincent CMA on 05/15/24 08:10 Assessment & Plan Assessment & Plan (1) IUD check up: Code(s): Z30.431 - Encounter for routine checking of intrauterine contraceptive device Category: Medical Plan: UPT done in the office was negative. Discussed with the patient the finding on physical exam, IUD string in place, the patient was reassured. Instructions given to patient to call in case of temperature above 100.4, severe cramping/pelvic pain, abnormal discharge or abnormal uterine bleeding or if she misses her menstrual cycle. Otherwise follow-up at her annual exam appointment. All questions answered, the patient verbalized understanding. (2) Well woman exam: Code(s): Z01.419 - Encounter for gynecological examination (general) (routine) without abnormal findings Category: Medical Plan: Cotesting not indicated this year. Instructions given the patient to schedule next screening Mammogram in 01/15. Counseled the patient about the recommended dietary allowance of 1000 mg of Calcium & 600 IU of vitamin D. The patient was instructed to perform monthly self-breast exams and to schedule an annual exam in a year; All questions answered and the patient verbalized understanding. Instructed the patient to schedule annual exam in a year Orders: Orders AMB HCG Urine Test Today Z32.02 - Encounter for test, result negative Referrals Gastroenterology Referral Z12.11 - Encounter for screening for malignant neoplasm of colon Coding Level of Care Code Est Pt Level 3 (23846) Est Pt Prev Care 40-64y(65376) Diagnoses IUD check up Z30.431 Well woman exam Z01.419
== END 2024-05-15 08:19 | disposition home or self-care (01) ==
PROVIDERS: PCP Internal Medicine; Visit Provider Obstetrics & Gynecology
DX: Z30.431 Encounter for routine checking of intrauterine contraceptive device (principal); Z01.419 Encounter for gynecological examination (general) (routine) without abnormal findings; Z32.02 Encounter for pregnancy test, result negative
CPT/HCPCS: 99396

== ENCOUNTER → 2024-05-15 07:48 | Outpatient (BNVA) | payer OTHER, SELFPAY | PROVIDERS: PCP Internal Medicine; Visit Provider Obstetrics & Gynecology | DX: Z01.419 Encounter for gynecological examination (general) (routine) without abnormal findings (principal) | CPT/HCPCS: 81025; 99396 ==

== ENCOUNTER 2024-06-15 08:11 | Outpatient (REF) | payer OTHER, SELFPAY ==
[2024-06-15 10:40] LABS: Anion Gap 8 (12-20); Blood Urea Nitrogen 14 mg/dL (9-16); Calcium 8.7 mg/dL (8.4-10.2); Carbon Dioxide 29 mmol/L (22-29); Chloride 105 mmol/L (96-108); Estimated Glomerular Filt Rate > 60; Glucose Fasting 80 mg/dL (60-99); Potassium 3.8 mmol/L (3.3-5.1); Sodium 138 mmol/L (135-145)
[2024-06-15 10:58] LABS: TSH reflex Free T4 1.47 uIU/mL (0.32-4.0); Vitamin D 25-OH Total 46.9 ng/mL (>30)
== END 2024-06-15 08:12 | disposition home or self-care (01) ==
LOC: HO.HMGCLDS 08:11
PROVIDERS: PCP Internal Medicine; Visit Provider Internal Medicine
DX: I10 Essential (primary) hypertension (principal); E66.01 Morbid (severe) obesity due to excess calories; Z86.39 Personal history of other endocrine, nutritional and metabolic disease; R60.9 Edema, unspecified
CPT/HCPCS: 36415; 80048; 82306; 84443

== ENCOUNTER 2024-06-20 11:36 | Outpatient (AMB) | payer OTHER, SELFPAY ==
--- NOTE | 2024-06-20 11:41 | MHC.PC.OV ---
Vital Signs 06/20/24 11:45 Height 5 ft 4 in Weight 244 lb BMI 41.9 BP 110/88 Blood Pressure Location Lt brachial Position Sitting Pulse 63 Pulse Source Pulse Oximeter Pulse Oximetry (%) 100 Oxygen Delivery Method Room Air Intake Visit Reasons: 3M F/U Intake Note: Pt is here today for her 3mo. f/u labs Allergies montelukast [From Singulair] Allergy (Severe, Verified 06/20/24 11:56) Anaphylaxis, rash peanut Allergy (Severe, Verified 06/20/24 11:56) Anaphylaxis strawberry Allergy (Verified 06/20/24 11:56) rash wheat Allergy (Verified 06/20/24 11:56) rash lisinopril Adverse Reaction (Verified 06/20/24 11:56) cough milk Adverse Reaction (Verified 06/20/24 11:56) rash soy Adverse Reaction (Verified 06/20/24 11:56) Abdominal Pain eggs Allergy (Uncoded 06/20/24 11:56) rash seafood Adverse Reaction (Uncoded 06/20/24 11:56) rash Medication List - Last Reconciled 06/20/24 by Teresa Maddox MD cetirizine 10 mg PO DAILY cholecalciferol (vitamin D3) 50 mcg PO DAILY famotidine 40 mg PO DAILY fluticasone propionate 50 mcg/actuation 1 spray intranasal DAILY PRN hydrochlorothiazide 12.5 mg PO QAM hydroxyzine HCl 25 mg PO BID PRN mometasone-formoterol 200-5 mcg/actuation (Dulera) 2 puffs inhalation Q12H 30 days Ventolin HFA 90 mcg/actuation (albuterol sulfate) 2 inhalations inhalation QID PRN NS Tobacco use date assessed: 06/20/24 Dental Screening Dental Screen Date: 06/20/24 Did you have a dental visit in the last 12 months?: Yes Did you have a dental problem in the last 6 months where you did not have access to dental care?: No Was dental information given to patient?: Patient has dentist HPI 3M F/U HPI Details 43 year old female presenting for follow-up on her hypertension and weight management. Blood pressure readings have been stable on amlodipine and hydrochlorothiazide. Additionally, the patient reports weight gain and expressed difficulty in exercising due to chronic knee pain likely attributed to arthritis. Pain worsens with weight gain. She had been using Tylenol to manage pain, avoiding NSAIDs due to potential effects on blood pressure and kidney function. Voltaren gel (diclofenac) was recommended to manage localized pain associated with arthritis. The patient does not engage in a regular exercise routine due to the knee pain, and she has expressed interest in dietary advice for weight management. [facility] Medical History Mixed anxiety and depressive disorder Hx of iron deficiency anemia Osteoarthritis of right knee Iron deficiency anemia Vitamin D deficiency Moderate asthma with allergic rhinitis Asthma Allergic rhinitis Morbid obesity due to excess calories Essential hypertension GERD (gastroesophageal reflux disease) Surgical History History of excision of mass History of tubal ligation Family History Father Colon cancer Mother HTN (hypertension) Stroke Brother Encephalitis Substance use disorder Mental health disorder Brother No problems noted. Daughter No problems noted. Daughter No problems noted. 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 9. Thoughts that you would be better off or of hurting yourself in some way: not at all Source: Developed by Drs. Prateek Burkett, Lesia Rockwell, Josiah Hernandez and colleagues, with an educational teresa from [employer]. Thrive Questionnaire Date Thrive assessed: 02/16/24 I am a: Patient What is your living situation today?: I choose not to answer this question Within the past 12 months, did the food you bought not last and you didn't have the money to get more?: I choose not to answer this question Within the past 12 months, did you worry whether your food would run out before you got money to buy more?: I choose not to answer this question Do you have trouble paying for medicines?: No Do you have trouble getting transportation to medical appointments?: No Do you have trouble paying your heating and electricity bill?: No Do you have trouble taking care of your child, family member or friend?: No Do you have trouble with day-to-day activities such as bathing, preparing meals, shopping, managing finances, etc.?: No Are you currently unemployed and looking for a job?: No Are you interested in more education?: No Please select the resources that you would like help with: None Currently or been in a relationship where the following occur: I choose not to answer THRIVE Score: 0 RENETTA-7 AMB Questionnaire RENETTA-7 Date RENETTA - 7 assessed: 02/16/24 Source: Developed by Drs. Prateek Burkett, Lesia Rockwell, Josiah Hernandez and colleagues, with an educational teresa from [employer]. Review of Systems Const All systems reviewed & are unremarkable except as noted in HPI and below Denies weakness Eyes Denies change in vision ENT Denies vertigo and Denies dizziness Card Reports as per HPI and Denies syncope Resp Reports as per HPI GI Reports as per HPI and Reports no additional complaints Reports as per HPI Musc Reports as per HPI, Denies joint swelling and Denies limited range of motion Neuro Denies vertigo, Denies dizziness, Denies syncope, Denies focal weakness and Denies weakness Endo Reports no additional complaints Aller/Immun Reports no additional complaints Physical exam (Primary Care) Vital Signs: Last Vital Signs Pulse 63 06/20/24 11:45 BP 110/88 06/20/24 11:45 Pulse Ox 100 06/20/24 11:45 Oxygen Delivery Method Room Air 06/20/24 11:45 BMI result Body Mass Index 41.9 Tobacco/Smoking Status: Tobacco use Status Tobacco use date assessed 06/20/24 06/20/24 11:48 Patient Tobacco Use Status Never used Tobacco 06/20/24 11:42 e-Cigarette/Vaping Use Never Used 06/20/24 11:42 Thrive Assessment: Date of Thrive Assessment Date Thrive assessed 02/16/24 06/20/24 11:42 Currently or been in a relationship where the following occur: I choose not to answer Const General: comfortable, no acute distress, alert and awake Nutritional Appearance: obese morbidly obese Orientation/consciousness: patient oriented x3 HENMT Head: Yes normocephalic Face and sinus: Yes face symmetric Mouth: Normal oral and palatal mucosa present, oropharynx normal and moist mucous membranes Eyes General: appearance normal, both eyes and all related structures Neck Neck: Yes full ROM, Yes no lymphadenopathy and Yes supple Resp Auscultation: clear to auscultation bilaterally Cardio Rate: regular rate Rhythm: regular rhythm Heart sounds: S1 normal heart sound present and S2 normal heart sound present GI Inspection: Yes obesity Palpation (GI): Soft to palpation, nontender and no guarding Auscultation: normal bowel sounds General: Yes no CVA tenderness Back/Spine/Pelvis Back: no CVA tenderness Skin Other: sees Dr Rodgers Lesions: no lesions Rashes: no rashes Neuro General: patient oriented x3 Extrem General: Yes no joint enlargement, Yes no clubbing, cyanosis or edema, Yes normal gait and Yes other (Crepitus positive in knees) Psych Appearance: grossly normal and well kempt Mental Status: mental status grossly normal Speech and movement: Normal speech and movement present Affect: normal affect Attitude: cooperative Thought process: Normal thought process present Results Reviewed Results Reviewed: Name: Olivia Ceron I Age/Sex: 43/F : 1980 Unit#: [id number] Attend Dr: Teresa Maddox MD Re06/15/24 Status: DEP REF Location: [facility] Disch: SPEC : [id number] LELO: 06/15/24 STATUS: COMP REQ : [id number] RECD: 06/15/[address]: Teresa Maddox MD COMP: 06/15/24 ENTERED: 06/15/[address]: ORDERED: Met Prof Fast, Vitamin D 25-OH, TSH Rflx Test Result Flag Reference Sodium 138 135-145 mmol/L Potassium 3.8 3.3-5.1 mmol/L CL 105 96-108 mmol/L CO2 29 22-29 mmol/L Gap 8 L 12-20 BUN 14 9-16 mg/dL Creat 0.69 0.5-1.4 mg/dL eGFR > 60 Chronic Kidney Disease: Estimated GFR < 60 mL/min/1.73m2 Severe Kidney Disease: Estimated GFR < 15 mL/min/1.73m2 FBS 80 60-99 mg/dL CA 8.7 # 8.4-10.2 mg/dL Vit D 25-OH Tot 46.9 >30 ng/mL Health Based Reference Values* < 20 ng/mL Deficient 20-30 ng/mL Insufficient > 30 ng/mL Sufficient Coding Level of Care Code Est Pt Level 4 (58925) Complex EM visit Add On G2211 Diagnoses Essential hypertension I10 Arthritis of both knees M17.0 Morbid obesity due to excess calories E66.01 Assessment & Plan Assessment & Plan (1) Essential hypertension: Code(s): I10 - Essential (primary) hypertension Category: Medical (2) Arthritis of both knees: Code(s): M17.0 - Bilateral primary osteoarthritis of knee Category: Medical (3) Morbid obesity due to excess calories: Code(s): E66.01 - Morbid (severe) obesity due to excess calories Category: Medical Plan Essential Hypertension: Continue with current medication regimen of hydrochlorothiazide and amlodipine. Reinforce dietary modifications to reduce sodium intake. - Chronic Knee Pain: Initiate the use of Voltaren gel for localized pain management. Suggest continuation of Tylenol as needed, avoiding NSAIDs due to hypertension and renal function considerations. - Weight Management: Refer to a dietitian for comprehensive dietary counseling and weight management strategies. Confirmed follow-up with freezer laboratory technician Marissa. During our discussion, I reinforced the importance of adhering to the prescribed hypertension management regimen, including dietary sodium reduction. I explained the benefits of Voltaren gel for arthritis-related knee pain, emphasizing its localized effect compared to systemic NSAID use. We discussed the need for weight management and arranged for dietary counseling with freezer laboratory technician Marissa to address eating habits and weight loss strategies. Upcoming appointments for physical examinations and other routine screenings were reviewed to ensure continuity of care. - Maintain scheduled follow-ups for OBGYN, mammogram, and physical examination. - Obtain a refill of prescribed vitamin D supplementation. - Recognize the importance of regular exercise and work with the freezer laboratory technician to identify feasible physical activities. Patient was informed and verbally consented to the use of an ambient scribe for clinic note documentation during this visit. Medications: Refilled hydroxyzine HCl 25 mg PO BID PRN 40 tabs 0RF acute anxiety amlodipine 5 mg PO DAILY 90 tabs 1RF 90 days cholecalciferol (vitamin D3) 50 mcg PO DAILY 90 caps 1RF
[2024-06-20 11:45] VITALS: BP 110/88; PULSE 63; O2SAT 100; BMI 41.9
== END 2024-06-20 12:16 | disposition home or self-care (01) ==
PROVIDERS: PCP Internal Medicine; Visit Provider Internal Medicine
DX: I10 Essential (primary) hypertension (principal); M17.0 Bilateral primary osteoarthritis of knee; E66.01 Morbid (severe) obesity due to excess calories; Z68.41 Body mass index [BMI] 40.0-44.9, adult

== ENCOUNTER → 2024-06-20 11:36 | Outpatient (BNVA) | payer OTHER, SELFPAY | PROVIDERS: PCP Internal Medicine; Visit Provider Internal Medicine | DX: I10 Essential (primary) hypertension (principal); M17.0 Bilateral primary osteoarthritis of knee; E66.01 Morbid (severe) obesity due to excess calories; Z68.41 Body mass index [BMI] 40.0-44.9, adult; Z71.3 Dietary counseling and surveillance | CPT/HCPCS: 99212 ==

== ENCOUNTER 2024-07-06 08:04 | Outpatient (AMB) | payer OTHER, SELFPAY ==
[2024-07-06 08:16] VITALS: BP 118/80; PULSE 68; O2SAT 98; BMI 42.1
--- NOTE | 2024-07-06 08:16 | MHC.OFFWIV ---
Intake Vital Signs 07/06/24 08:16 Height 5 ft 4 in Weight 245 lb 6 oz BMI 42.1 BP 118/80 Blood Pressure Location Lt brachial Position Sitting Pulse 68 Pulse Source Pulse Oximeter Pulse Oximetry (%) 98 Oxygen Delivery Method Room Air Intake Visit Reasons: EP large bump on top of RT hand, painful Intake Note: Patient here her bump on right wrist that she noticed this morning. Patient Tobacco Use Status: Never used Tobacco Allergies montelukast [From Singulair] Allergy (Severe, Verified 07/06/24 08:23) Anaphylaxis, rash peanut Allergy (Severe, Verified 07/06/24 08:23) Anaphylaxis strawberry Allergy (Verified 07/06/24 08:23) rash wheat Allergy (Verified 07/06/24 08:23) rash lisinopril Adverse Reaction (Verified 07/06/24 08:23) cough milk Adverse Reaction (Verified 07/06/24 08:23) rash soy Adverse Reaction (Verified 07/06/24 08:23) Abdominal Pain eggs Allergy (Uncoded 07/06/24 08:23) rash seafood Adverse Reaction (Uncoded 07/06/24 08:23) rash Do you need a note to return to daycare/school/sports/work: No HPI HPI Comments History of Present Illness Details This is a 43-year-old female presenting for evaluation of a lesion on the top of her left wrist that she first noted this morning. Patient states she was cleaning her cabinets at home yesterday, denies any injury or trauma, and woke this morning with a bump on the top of her left wrist. Patient states the lesion is not painful and she has not taken any medication for initial management. This lesion has not restricted the range of motion of her left wrist. [facility] Medical History Mixed anxiety and depressive disorder Hx of iron deficiency anemia Osteoarthritis of right knee Iron deficiency anemia Vitamin D deficiency Moderate asthma with allergic rhinitis Asthma Allergic rhinitis Morbid obesity due to excess calories Essential hypertension GERD (gastroesophageal reflux disease) Surgical History History of excision of mass History of tubal ligation Family History Father Colon cancer Mother HTN (hypertension) Stroke Brother Encephalitis Substance use disorder Mental health disorder Brother No problems noted. Daughter No problems noted. Daughter No problems noted. 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 Cognitive needs: No Hearing needs: No Vision needs: No Female Reproductive History Menstrual Age of Menarche: 10 Review of Systems Const All systems reviewed & are unremarkable except as noted in HPI and below Denies chills and Denies fever(s) Eyes Reports no additional complaints ENT Reports no additional complaints Card Reports no additional complaints Resp Reports no additional complaints GI Reports no additional complaints Reports no additional complaints Musc Reports no additional complaints, Denies arthralgias, Denies joint swelling, Denies limited range of motion and Denies muscle weakness Skin/Breast Reports system reviewed and no additional complaints, except as documented and Reports other (lesion left wrist) Neuro Reports no additional complaints Psych Reports no additional complaints Endo Reports no additional complaints Aller/Immun Reports no additional complaints Physical Exam Vital Signs: BMI result Body Mass Index 42.1 Const General: cooperative, healthy appearing, comfortable, no acute distress, well developed, alert, awake and Physically active Nutritional Appearance: well nourished Orientation/consciousness: patient oriented x3 Limitations: no limitations Skin Other: flesh colored raised rubbery lesion measuring 1.5cm x 1.0cm present on the dorsal surface of the left wrist overlying carpal bones that is non.tender to examination Lesions: lesion noted (left wrist dorsal surface) Neuro General: patient oriented x3 Extrem Left upper extremity: hand (rubbery aforementioned lesion dorsal surface left wrist) Details: normal capillary refill, neuromotor exam normal, neurosensory exam normal, tendon exam normal, normal ROM of fingers and other (ROM intact left wrist and all digits of the left hand); no tenderness, no unusual warmth, no crepitus and no foreign bodies Psych Appearance: grossly normal Mental Status: mental status grossly normal Insight: Good insight present (Psych) Judgement: Good judgement present (Psych) Assessment & Plan Assessment & Plan (1) Lipoma of upper extremity: Comment: This lesion is likely consistent with a lipoma as there is no evidence of an abscess formation or cellulitis however may also be an epidermoid cyst or tendinopathy. Given there is no bony pain, imaging will be deferred at this time. Code(s): D17.20 - Benign lipomatous neoplasm of skin and subcutaneous tissue of unspecified limb Qualifiers: Laterality: left Qualified Code(s): D17.22 - Benign lipomatous neoplasm of skin and subcutaneous tissue of left arm Plan: Patient is reassured and instructed to follow up with her primary care physician within 4-6 weeks if the lesion has not resolved. Coding Level of Care Code Est Pt Level 3 (37621) Diagnoses Lipoma of left upper extremity D17.22 Laterality: left Time Spent (min) 20
== END 2024-07-06 10:05 | disposition home or self-care (01) ==
PROVIDERS: PCP Internal Medicine; Visit Provider Physician Assistant
DX: D17.22 Benign lipomatous neoplasm of skin and subcutaneous tissue of left arm (principal)

== ENCOUNTER → 2024-07-06 08:04 | Outpatient (BNVA) | payer OTHER, SELFPAY | PROVIDERS: PCP Internal Medicine; Visit Provider Physician Assistant | DX: D17.22 Benign lipomatous neoplasm of skin and subcutaneous tissue of left arm (principal) | CPT/HCPCS: 99212 ==

== ENCOUNTER 2024-08-20 10:39 | Outpatient (AMB) | payer OTHER, SELFPAY ==
--- NOTE | 2024-08-20 10:49 | A.OFFVIS_ITS ---
VS Expanded 08/20/24 11:05 08/22/24 12:17 Height 5 ft 4 in 5 ft 4 in Weight 258 lb 6.108 oz 258 lb BMI 44.3 44.3 Intake Visit Reasons: Essential hypertension, obesity Allergies montelukast [From Singulair] Allergy (Severe, Verified 07/06/24 08:23) Anaphylaxis, rash peanut Allergy (Severe, Verified 07/06/24 08:23) Anaphylaxis strawberry Allergy (Verified 07/06/24 08:23) rash wheat Allergy (Verified 07/06/24 08:23) rash lisinopril Adverse Reaction (Verified 07/06/24 08:23) cough milk Adverse Reaction (Verified 07/06/24 08:23) rash soy Adverse Reaction (Verified 07/06/24 08:23) Abdominal Pain eggs Allergy (Uncoded 07/06/24 08:23) rash seafood Adverse Reaction (Uncoded 07/06/24 08:23) rash Nutrition Presentation Details: Pt presents for MNT for Essential HTN and morbid obesity food frequency fruits:not including vex/wk starches>20 protein 12-20 oz/d dairy: 3x/d Pt reports having 3 meals/d and increased snacks in evening Physical activity: daily life etoh/smoking:denies BS Monitoring Most Recent Diabetes Results: Creatinine 0.69 mg/dL (0.5-1.4) 06/15/24 Blood Urea Nitrogen 14 mg/dL (9-16) 06/15/24 Sodium 138 mmol/L (135-145) 06/15/24 Potassium 3.8 mmol/L (3.3-5.1) 06/15/24 Chloride 105 mmol/L (96-108) 06/15/24 Carbon Dioxide 29 mmol/L (22-29) 06/15/24 Calcium 8.7 mg/dL (8.4-10.2) 06/15/24 BTA-Efyvxqh-Ng.Jeor Equation Height: 5 ft 4 in Weight: 258 lb Resting Metabolic Rate: 1802.70 Calculated Activity Level: Sedentary Calories Needed to Maintain Weight: 2163.24 Diagnosis Nutrition problem #1: excessive energy intake As related to (etiology) #1: diagnosis As evidenced by (sign/symptom) #1: high BMI [facility] Medical History Mixed anxiety and depressive disorder Hx of iron deficiency anemia Osteoarthritis of right knee Iron deficiency anemia Vitamin D deficiency Moderate asthma with allergic rhinitis Asthma Allergic rhinitis Morbid obesity due to excess calories Essential hypertension GERD (gastroesophageal reflux disease) Surgical History History of excision of mass History of tubal ligation Family History Father Colon cancer Mother HTN (hypertension) Stroke Brother Encephalitis Substance use disorder Mental health disorder Brother No problems noted. Daughter No problems noted. Daughter No problems noted. 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 Cognitive needs: No Hearing needs: No Vision needs: No Female Reproductive History Menstrual Age of Menarche: 10 Assessment & Plan Assessment & Plan (1) Morbid obesity due to excess calories: Comment: with essential HTN Code(s): E66.01 - Morbid (severe) obesity due to excess calories Category: Medical Plan: Wt: 117 Kg ( 08/22/24 ) Est kcal needs as per MSJ: 2200 (40% carb, 30% protein/fat) Est fluid needs as per 25-30 ml/d: 3500 Est prot per day as per 1 g/kg bw: 117 Recommend fiber intake : 8-10 g per day and gradually increase to 25-28 g per day for women and 35-38 g for men or as tolerated Recommend sodium intake per day : less than 2000 mg Educated patient on: ( R = reviewed V = verbalizes understanding N/R = needs review N/A = not applicable * Food sources of carbohydrate, adequate serving sizes and its role in various health conditions: R V N/R * Differences between complex carbohydrates a simple carbohydrates, role of fiber in diet: R V N/R * Lean protein sources of foods: R V NR * Differences between types of fats and role in diet (mono on saturated fat fatty acids, saturated fatty acids, trans fats): R * Food sources of sodium in salt and healthy modifications for heart health in kidney health: R V R/V * Vitamins and minerals: R V N/R * Healthy plate method concept: R V N/R * Physical activity: Benefits a precaution: R V N/R * Hypoglycemia protocol (rule of 15): R V N/R * Dietary prevention of Hyperglycemia: R V R/V Patient Instructions: Practice mindful eating Choose a serving of fruit (high fiber low sodium) as snack , fruit/veg smoothie ideas See meal plan consisting of high fiber, food options (60-75 g carb or less following healthy plate method at meal Drink water with meals Coding Level of Care Code Nutr Indiv Intake (59379) Diagnoses Morbid obesity due to excess calories E66.01 Time Spent (min) 30
[2024-08-20 11:05] VITALS: BMI 44.3
--- OUTSIDE RECORDS SUMMARY | 2024-08-20 15:24 | XMS_ITS | Clinical Summary ---
Author Organization [facility] Address [address] [place] [address] Care Team Providers Care Electronic Field Service Engineer Name Role Phone Unavailable Primary Care Provider Unavailabl e Social History Tobacco Use Types Packs/Day Years Used Date Smoking Tobacco: Never Assessed Sex and Gender Information Value Date Recorded Sex Assigned at Not on file Gender Identity Not on file Sexual Orientation Not on file Plan of Treatment Health Maintenance Due Date Last Done Comments Breast Cancer Screening 1980 DTaP,Tdap,and Td Vaccines (1 - Tdap) 1997 Hepatitis B Vaccines (1 of 3 - 19+ 3-dose series) 1997 Cervical Cancer Screening: P ap Smear 12/09/1999 COVID-19 Vaccine (2023-2 5 season) 2024 Influenza Vaccine (#1) 2024 HIB Vaccines Aged Out No longer eligi ble based on patient's age to complete this topic HPV Vaccines Aged Out No longer eligi ble based on patient's age to complete this topic Hepatitis A Vaccines Aged Out No long er eligible based on patient's age to complete this topic IPV Vaccines Aged Out No longer eligi ble based on patient's age to complete this topic MMR Vaccines Aged Out No longer eligi ble based on patient's age to complete this topic Meningococcal ACWY Vaccine Aged Out N o longer eligible based on patient's age to complete this topic Pneumococcal Vaccine: Pediat rics (0 to 5 Years) and At-Risk Patients (6 to 64 Years) Aged Out No longer eligible b ased on patient's age to complete this topic RSV Immunization Patients Un bob 20 months Aged Out No longer eligible b ased on patient's age to complete this topic Varicella Vaccines Aged Out No longer eligible based on patient's age to complete this topic
--- OUTSIDE RECORDS SUMMARY | 2024-08-20 15:24 | XMS_ITS | Clinical Summary ---
Author Organization [facility] Address [address] [place] [address] Care Team Providers Care Stage Electrician Name Role Phone Unavailable Primary Care Provider Unavailabl e Social History Tobacco Use Types Packs/Day Years Used Date Smoking Tobacco: Never Assessed Sex and Gender Information Value Date Recorded Sex Assigned at Female 09/28/2018 12:13 PM EST Gender Identity Not on file Sexual Orientation Not on file Plan of Treatment Health Maintenance Due Date Last Done Comments Hepatitis B Vaccines (1 of 3 - 3-dose series) 1980 Hepatitis C Screening 1980 COVID-19 Vaccine (#1) 06/10/1979 Depression Screening 1990 Preventative Health Evaluation 1996 DTap / Tdap / Td (1 - Tdap) 1997 Cervical Cancer Screening (P ap Smear) 12/09/1999 Colon Cancer Screening (Colonoscopy) 12/09/2023 Influenza Vaccine (#1) 2024 Pneumococcal Vaccine Aged Out No long er eligible based on patient's age to complete this topic RSV Ped < 20 months Aged Out No longe r eligible based on patient's age to complete this topic
[2024-08-22 12:17] VITALS: BMI 44.3
== END 2024-08-20 11:33 | disposition home or self-care (01) ==
PROVIDERS: PCP Internal Medicine; Visit Provider Dietitian, Registered
DX: E66.01 Morbid (severe) obesity due to excess calories (principal)

== ENCOUNTER → 2024-08-20 10:39 | Outpatient (BNVA) | payer OTHER, SELFPAY | PROVIDERS: PCP Internal Medicine; Visit Provider Dietitian, Registered | DX: E66.01 Morbid (severe) obesity due to excess calories (principal); I10 Essential (primary) hypertension; Z71.3 Dietary counseling and surveillance; Z68.41 Body mass index [BMI] 40.0-44.9, adult | CPT/HCPCS: 97802 ==

== ENCOUNTER 2024-11-07 08:01 | Outpatient (REF) | payer OTHER, SELFPAY ==
--- OUTSIDE RECORDS SUMMARY | 2024-11-07 11:30 | XMS_ITS | Clinical Summary ---
Author Organization [facility] Address [address] [place] [address] Care Team Providers Care Risk Management Intern Name Role Phone Unavailable Primary Care Provider [...]
--- OUTSIDE RECORDS SUMMARY | 2024-11-07 11:30 | XMS_ITS | Clinical Summary ---
[facility] Address [address] [place] [address] Care Team Providers Care Nurse Aide Evaluator Name Role Phone Unavailable Primary Care Provider [...]
== END 2024-11-07 08:02 | disposition home or self-care (01) ==
LOC: HO.LNP 08:01
PROVIDERS: PCP Internal Medicine; Visit Provider Obstetrics & Gynecology
DX: N93.9 Abnormal uterine and vaginal bleeding, unspecified (principal); Z97.5 Presence of (intrauterine) contraceptive device; Z98.51 Tubal ligation status
CPT/HCPCS: 58100; 88305

== ENCOUNTER 2024-11-07 08:01 | Outpatient (AMB) | payer OTHER, SELFPAY ==
--- OUTSIDE RECORDS SUMMARY | 2024-11-07 08:06 | XMS_ITS | Clinical Summary ---
[facility] Address [address] [place] [address] Care Team Providers Care Him Specialist Name Role Phone Unavailable Primary Care Provider Unavailabl e Social History Tobacco Use Types Packs/Day Years Used Date Smoking Tobacco: Never Assessed Comments Unknown Sex and Gender Information Value Date Recorded Sex Assigned at Not on file Legal Sex Female 11:10 AM EST Gender Identity Not on file Sexual Orientation Not on file Plan of Treatment Health Maintenance Due Date Last Done Comments Breast Cancer Screening 1978 DTaP,Tdap,and Td Vaccines (1 - Tdap) 1997 Hepatitis B Vaccines (1 of 3 - 19+ 3-dose series) 1997 Cervical Cancer Screening: P ap Smear 12/09/1999 COVID-19 Vaccine (2023-2 5 season) 2024 Influenza Vaccine (Season Ended) 2025 HIB Vaccines Aged Out No longer eligi [...] patient's age to complete this topic Meningococcal B Vaccine Aged Out No l onger eligible based on patient's age to complete [...]
--- OUTSIDE RECORDS SUMMARY | 2024-11-07 08:06 | XMS_ITS | Clinical Summary ---
Author Organization [facility] Address [address] [place] [address] Care Team Providers Care Room Cooler Installer Name Role Phone Unavailable Primary Care Provider [...]
--- NOTE | 2024-11-07 08:14 | MHC.OFFVIS ---
Vital Signs 11/07/24 08:21 Height 5 ft 4 in Weight 258 lb BMI 44.3 BP 124/88 Intake Visit Reasons: EMB/DO NOT RS Systems Support Engineer Required: Yes Systems Support Engineer Language: Haitian Information Interpreted: non-clinical & clinical Postage Machine Operator: Postage Machine Operator Present (Yue MUSTAFA) Accompanied by: Self / Same As Patient Allergies montelukast [From Singulair] Allergy (Severe, Verified 11/07/24 08:23) Anaphylaxis, rash peanut Allergy (Severe, Verified 11/07/24 08:23) Anaphylaxis strawberry Allergy (Verified 11/07/24 08:23) rash wheat Allergy (Verified 11/07/24 08:23) rash lisinopril Adverse Reaction (Verified 11/07/24 08:23) cough milk Adverse Reaction (Verified 11/07/24 08:23) rash soy Adverse Reaction (Verified 11/07/24 08:23) Abdominal Pain eggs Allergy (Uncoded 11/07/24 08:23) rash seafood Adverse Reaction (Uncoded 11/07/24 08:23) rash Is last menstrual period known: No (mirena) HPI Comments Details: Presenting for EMB The patient had focal crowding on endometrial curettage in 03/17 followed by Mirena IUD insertion in 04/17 [facility] Medical History Mixed anxiety and depressive disorder Hx of iron deficiency anemia Osteoarthritis of right knee Iron deficiency anemia Vitamin D deficiency Moderate asthma with allergic rhinitis Asthma Allergic rhinitis Morbid obesity due to excess calories Essential hypertension GERD (gastroesophageal reflux disease) Surgical History History of excision of mass History of tubal ligation Family History Father Colon cancer Mother HTN (hypertension) Stroke Brother Encephalitis Substance use disorder Mental health disorder Brother No problems noted. Daughter No problems noted. Daughter No problems noted. 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 hysteroscopy D&C) & the risks were discussed with the patient including but not limited: pain, uterine perforation, bleeding, infection, possible injury to bladder, bowel, ureter, possible need for blood transfusion with all its possible risks. The patient verbalized understanding all questions answered and signed consent. Urine test done in the office was negative The patient was placed into the dorsal lithotomy position; a speculum was inserted in the vagina. Using aseptic technique for the procedure, the cervix was cleansed with Betadine. The anterior lip of the cervix was grasped with a single tooth tenaculum. The uterus was sounded to 7 cm with a 4 mm Pipelle was used. Tissues samples were obtained and placed in formalin, in a patient labeled container and sent to the pathology department. At the end of the procedure, there was minimal bleeding noted The patient tolerated the procedure well and was discharged in good condition with the following instructions: Nothing in the vagina until the bleeding stops. No sex until the bleeding stops, to call if any of the following occurs: fever (>100.4), flu-like symptoms, abdominal pain, heavy bleeding, four smelling vaginal discharge. The patient was instructed to schedule a Follow up appointment in 2 weeks to discuss pathology results of the biopsy and treatment options. This note was generated with a voice recognition program. Some errors may have been overlooked during the review of this note. Sometimes these errors may affect the content or meaning of a given sentence. [id number] Biopsy Assessment & Plan Assessment & Plan (1) Abnormal uterine bleeding (AUB): Comment: Focal glandular crowding on D&C pathology 03/17 04/17 Mirena IUD insertion Code(s): N93.9 - Abnormal uterine and vaginal bleeding, unspecified Category: Medical Plan: EMB done, see procedure note instructions given the patient to schedule a 2 week follow-up appointment and a 4 months repeat EMB Orders: Orders AMB Endometrial Biopsy Today N93.9 - Abnormal uterine and vaginal bleeding, unspecified Coding Level of Care Code Procedure Only Diagnoses Abnormal uterine bleeding (AUB) N93.9 CPT Codes Endometrial Biopsy - CPT: 70815-Hchngjhkaep Biopsy ([id number])
[2024-11-07 08:21] VITALS: BP 124/88; BMI 44.3
== END 2024-11-07 08:46 | disposition home or self-care (01) ==
PROVIDERS: PCP Internal Medicine; Visit Provider Obstetrics & Gynecology
DX: N93.9 Abnormal uterine and vaginal bleeding, unspecified (principal)
CPT/HCPCS: 58100

== ENCOUNTER 2024-11-21 07:48 | Outpatient (AMB) | payer OTHER, SELFPAY ==
--- NOTE | 2024-11-21 07:49 | MHC.OFFVIS ---
Intake Visit Reasons: EMB results Architect Internship Required: Yes Architect Internship Language: Border Machine Operator Services: Architect Internship Present (in person) Architect Internship Name: Yue MUSTAFA Information Interpreted: non-clinical & clinical Allergies montelukast [From Singulair] Allergy (Severe, Verified 11/21/24 07:49) Anaphylaxis, rash peanut Allergy (Severe, Verified 11/21/24 07:49) Anaphylaxis strawberry Allergy (Verified 11/21/24 07:49) rash wheat Allergy (Verified 11/21/24 07:49) rash lisinopril Adverse Reaction (Verified 11/21/24 07:49) cough milk Adverse Reaction (Verified 11/21/24 07:49) rash soy Adverse Reaction (Verified 11/21/24 07:49) Abdominal Pain eggs Allergy (Uncoded 11/21/24 07:49) rash seafood Adverse Reaction (Uncoded 11/21/24 07:49) rash HPI Comments Details: The patient scheduled a telehealth visit after endometrial biopsy. The patient has no complaints, no vaginal bleeding, no feverishness chills or abdominal pain. The endometrial biopsy pathology report showed the following: Endometrium, biopsy: Chronic endometritis arising in benign endometrium with breakdown and pseudodecidual change, consistent with exogenous progestin; no atypia identified 03/17 Focal glandular crowding on D&C pathology 04/17 Mirena IUD insertion [facility] Medical History Mixed anxiety and depressive disorder Hx of iron deficiency anemia Osteoarthritis of right knee Iron deficiency anemia Vitamin D deficiency Moderate asthma with allergic rhinitis Asthma Allergic rhinitis Morbid obesity due to excess calories Essential hypertension GERD (gastroesophageal reflux disease) Surgical History History of excision of mass History of tubal ligation Family History Father Colon cancer Mother HTN (hypertension) Stroke Brother Encephalitis Substance use disorder Mental health disorder Brother No problems noted. Daughter No problems noted. Daughter No problems noted. 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 Cognitive needs: No Hearing needs: No Vision needs: No Female Reproductive History Menstrual Age of Menarche: 10 Review of Systems Const All systems reviewed & are unremarkable except as noted in HPI and below Reports as per HPI and Reports no additional complaints GI Reports no additional complaints Reports no additional complaints Telehealth Telehealth Telehealth Platform: Telephone Location of provider rendering services: practice address Location of patient: address on file Patient Identification confirmed using: Name, : Yes Telehealth method: video Patient verbally consented to treatment: Yes Patient verbally consented to billing insurance company: Yes Patient informed of any privacy concerns related to visit: Yes Minutes spent on Phone/Video with Pt.: 3 Assessment & Plan Assessment & Plan (1) Abnormal uterine bleeding (AUB): Comment: 03/17 Focal glandular crowding on D&C pathology 04/17 Mirena IUD insertion Code(s): N93.9 - Abnormal uterine and vaginal bleeding, unspecified Category: Medical Plan: Discussed with the patient the results of EMB pathology, recommended repeat EMB in 4 months. Instructions given the patient to schedule an appointment for EMB in 4 months and to call in case abnormal uterine bleeding will proceed with endometrial sampling to rule out endometrial pathology including hyperplasia under mg. All questions answered, the patient verbalized understanding. I spent a total of 20 minutes reviewing the chart, talking to the patient via video and documenting in the medical record. I spent a total of 20 minutes reviewing the chart, talking to the patient via video and documenting in the medical record. Coding Level of Care Code Tele Est Pt Level 3 (66623) Diagnoses Abnormal uterine bleeding (AUB) N93.9
--- OUTSIDE RECORDS SUMMARY | 2024-11-21 07:51 | XMS_ITS | Clinical Summary ---
Author Organization [facility] Address [address] [place] [address] Care Team Providers Care Ham Passer Name Role Phone Unavailable Primary Care Provider [...]
--- OUTSIDE RECORDS SUMMARY | 2024-11-21 07:51 | XMS_ITS | Clinical Summary ---
[facility] Address [address] [place] [address] Care Team Providers Care Airset Caster Name Role Phone Unavailable Primary Care Provider [...]
== END 2024-11-21 08:02 | disposition home or self-care (01) ==
LOC: HO.HWS 07:48
PROVIDERS: PCP Internal Medicine; Visit Provider Obstetrics & Gynecology
DX: N93.9 Abnormal uterine and vaginal bleeding, unspecified (principal)
CPT/HCPCS: 99213

== ENCOUNTER → 2024-11-21 07:48 | Outpatient (BNVA) | payer OTHER, SELFPAY | PROVIDERS: PCP Internal Medicine; Visit Provider Obstetrics & Gynecology ==

== ENCOUNTER 2024-12-05 08:17 | Outpatient (AMB) | payer OTHER, SELFPAY ==
--- NOTE | 2024-12-05 08:19 | MHC.PC.OV ---
Vital Signs 12/05/24 08:20 Height 5 ft 4 in Weight 265 lb BMI 45.5 BP 128/80 Blood Pressure Location Lt brachial Position Sitting Respiration 16 Pulse 86 Pulse Source Pulse Oximeter Temp 98.4 F Temp Source Oral Pulse Oximetry (%) 99 Oxygen Delivery Method Room Air Intake Visit Reasons: discuss wgt loss options Intake Note: Pt is here today to discuss wgt loss option Member Services Representative Required: Yes Member Services Representative Name: damir # [id number] Information Interpreted: clinical only Allergies montelukast [From Singulair] Allergy (Severe, Verified 12/05/24 08:56) Anaphylaxis, rash peanut Allergy (Severe, Verified 12/05/24 08:56) Anaphylaxis strawberry Allergy (Verified 12/05/24 08:56) rash wheat Allergy (Verified 12/05/24 08:56) rash lisinopril Adverse Reaction (Verified 12/05/24 08:56) cough milk Adverse Reaction (Verified 12/05/24 08:56) rash soy Adverse Reaction (Verified 12/05/24 08:56) Abdominal Pain eggs Allergy (Uncoded 12/05/24 08:56) rash seafood Adverse Reaction (Uncoded 12/05/24 08:56) rash Medication List - Last Reconciled 12/05/24 by Teresa Maddox MD Advair HFA 115-21 mcg/actuation (fluticasone propion-salmeterol) 2 puffs inhalation Q12H 30 days NS amlodipine 5 mg PO DAILY 90 days cetirizine 10 mg PO DAILY cholecalciferol (vitamin D3) 50 mcg PO DAILY epinephrine (EpiPen 2-Efren) 0.3 mg (0.3 mL) IM Q15M PRN famotidine 40 mg PO DAILY fluticasone propionate 50 mcg/actuation 1 spray intranasal DAILY PRN hydrochlorothiazide 12.5 mg PO QAM hydroxyzine HCl 25 mg PO BID PRN levonorgestrel (Mirena) intrauterine Ventolin HFA 90 mcg/actuation (albuterol sulfate) 2 inhalations inhalation QID PRN NS Tobacco use date assessed: 12/05/24 Dental Screening Dental Screen Date: 12/05/24 Did you have a dental visit in the last 12 months?: Yes Did you have a dental problem in the last 6 months where you did not have access to dental care?: No Was dental information given to patient?: Patient has dentist HPI discuss wgt loss options HPI Details - The patient is a 43-year-old female with morbid obesity and hypertension, presenting today for help with losing weight. She reports attempts to manage her weight through dietary changes and consultations with a unarmed security officer, but these have not proved successful. - Weight loss is accompanied by exacerbation of knee pain and swelling due to osteoarthritis, a condition she was evaluated for in early 2022. - Her knee condition, already noted to have severe tricompartmental degenerative changes, was initially advised for management through physical therapy, which she states was only minimally helpful. Alternates taking Tylenol and a leave which affords only temporary relief - The difficulty in exercising due to knee pain impacts her weight management efforts [facility] Medical History Mixed anxiety and depressive disorder Hx of iron deficiency anemia Osteoarthritis of right knee Iron deficiency anemia Vitamin D deficiency Moderate asthma with allergic rhinitis Asthma Allergic rhinitis Morbid obesity due to excess calories Essential hypertension GERD (gastroesophageal reflux disease) Surgical History History of excision of mass History of tubal ligation Family History Father Colon cancer Mother HTN (hypertension) Stroke Brother Encephalitis Substance use disorder Mental health disorder Brother No problems noted. Daughter No problems noted. Daughter No problems noted. 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 88905 - PHQ-9 Billing: Patient declined-do not bill Source: Developed by Drs. Prateek Burkett, Lesia Rockwell, Josiah Hernandez and colleagues, with an educational teresa from [employer]. Thrive Questionnaire Date Thrive assessed: 12/05/24 I am a: Patient What is your living situation today?: I choose not to answer this question Within the past 12 months, did the food you bought not last and you didn't have the money to get more?: I choose not to answer this question Within the past 12 months, did you worry whether your food would run out before you got money to buy more?: I choose not to answer this question Do you have trouble paying for medicines?: No Do you have trouble getting transportation to medical appointments?: No Do you have trouble paying your heating and electricity bill?: No Do you have trouble taking care of your child, family member or friend?: No Do you have trouble with day-to-day activities such as bathing, preparing meals, shopping, managing finances, etc.?: No Are you currently unemployed and looking for a job?: No Are you interested in more education?: No Please select the resources that you would like help with: None Currently or been in a relationship where the following occur: I choose not to answer THRIVE Score: 0 AUDIT C Alcohol Use Questionnaire (AUDIT-C) 1. How often do you have a drink containing alcohol?: Never Total Score: 0 RENETTA-7 AMB Questionnaire RENETTA-7 Date RENETTA - 7 assessed: 12/05/24 Feeling nervous, anxious, or on edge: 0 = Not at all Not being able to stop or control worryin = Not at all Worrying too much about different things: 0 = Not at all Trouble relaxin = Not at all Being so restless that it is hard to sit still: 0 = Not at all Becoming easily annoyed or irritable: 0 = Not at all Feeling afraid as if something awful might happen: 0 = Not at all Total RENETTA-7 score (0-4 normal; 5-9 mild; 10-14 moderate; 15-21 severe): 0 Source: Developed by Drs. Prateek Burkett, Lesia Rockwell, Josiah Hernandez and colleagues, with an educational teresa from [employer]. RENETTA-7 Assessment Billing RENETTA-7 Assessment Tool: RENETTA-7 Assessment 72734 Review of Systems Const All systems reviewed & are unremarkable except as noted in HPI and below Reports as per HPI Card Reports no additional complaints Resp Reports no additional complaints GI Reports no additional complaints Reports no additional complaints Musc Reports as per HPI Neuro Reports no additional complaints Physical exam (Primary Care) Vital Signs: Last Vital Signs Temp 98.4 F 12/05/24 08:20 Pulse 86 12/05/24 08:20 Resp 16 12/05/24 08:20 BP 128/80 12/05/24 08:20 Pulse Ox 99 12/05/24 08:20 Oxygen Delivery Method Room Air 12/05/24 08:20 BMI result Body Mass Index 45.5 Tobacco/Smoking Status: Tobacco use Status Tobacco use date assessed 12/05/24 12/05/24 08:22 Patient Tobacco Use Status Never used Tobacco 12/05/24 08:22 e-Cigarette/Vaping Use Never Used 12/05/24 08:22 Thrive Assessment: Date of Thrive Assessment Date Thrive assessed 12/05/24 12/05/24 08:25 Currently or been in a relationship where the following occur: I choose not to answer Const General: no acute distress and alert Nutritional Appearance: obese morbidly obese Orientation/consciousness: patient oriented x3 HENMT Head: Yes normocephalic Face and sinus: Yes face symmetric Mouth: Normal oral and palatal mucosa present, oropharynx normal and moist mucous membranes Eyes General: appearance normal, both eyes and all related structures Neck Neck: Yes full ROM, Yes no lymphadenopathy and Yes supple Resp Auscultation: clear to auscultation bilaterally Cardio Rate: regular rate Rhythm: regular rhythm Heart sounds: S1 normal heart sound present and S2 normal heart sound present GI Inspection: Yes obesity Palpation (GI): Soft to palpation, nontender and no guarding Auscultation: normal bowel sounds General: Yes no CVA tenderness Back/Spine/Pelvis Back: no CVA tenderness Skin Other: sees Dr Rodgers Lesions: no lesions Rashes: no rashes Neuro General: patient oriented x3 Extrem Other: Tenderness on palpation over the anterior aspect of right knee joint, no joint swelling General: Yes no clubbing, cyanosis or edema, Yes normal gait and Yes other (Crepitus positive in knees) Psych Appearance: grossly normal and well kempt Mental Status: mental status grossly normal Speech and movement: Normal speech and movement present Affect: normal affect Attitude: cooperative Thought process: Normal thought process present Coding Level of Care Code Est Pt Level 4 (40971) Diagnoses Right anterior knee pain M25.561 Morbid obesity due to excess calories E66.01 Essential hypertension I10 Additional Codes RENETTA-7 Assessment Billing - RENETTA-7 Assessment Tool: RENETTA-7 Assessment 40999 ([id number]) Assessment & Plan Assessment & Plan (1) Right anterior knee pain: Code(s): M25.561 - Pain in right knee Plan: X-ray of right knee ordered, advised continue taking a leave alternating with Tylenol as needed. Will obtain orthopedic consult if no improvement (2) Morbid obesity due to excess calories: Comment: with essential HTN Code(s): E66.01 - Morbid (severe) obesity due to excess calories Category: Medical Plan: The approach includes starting the patient on phentermine to support weight loss, with follow-up planned to assess effectiveness and tolerability. With a previous knee diagnosis confirmed, an x-ray has been ordered to reevaluate and possibly refer for further orthopedic intervention. We will integrate dietary management as recommended by her unarmed security officer and explore safe exercise options. Ongoing blood pressure monitoring and adjustments in her treatment plan will be considered as part of her overall health maintenance strategy. Patient was informed and verbally consented to the use of an ambient scribe for clinic note documentation during this visit. (3) Essential hypertension: Code(s): I10 - Essential (primary) hypertension Category: Medical Plan The approach includes starting the patient on phentermine to support weight loss, with follow-up planned to assess effectiveness and tolerability. With a previous knee diagnosis confirmed, an x-ray has been ordered to reevaluate and possibly refer for further orthopedic intervention. We will integrate dietary management as recommended by her unarmed security officer and explore safe exercise options. Ongoing blood pressure monitoring and adjustments in her treatment plan will be considered as part of her overall health maintenance strategy. Patient was informed and verbally consented to the use of an ambient scribe for clinic note documentation during this visit. Orders: Orders XR knee RT 3V Today M25.561 - Pain in right knee Alanine Aminotransferase Today E66.01 - Morbid (severe) obesity due to excess calories, I10 - Essential (primary) hypertension Aspartate Amino Transferase Today E66.01 - Morbid (severe) obesity due to excess calories, I10 - Essential (primary) hypertension Basic Metabolic Panel Today E66.01 - Morbid (severe) obesity due to excess calories, I10 - Essential (primary) hypertension Medications: New phentermine must administer 2 hours after breakfast 15 mg PO DAILY 30 caps 1RF E66.01 - Morbid (severe) obesity due to excess calories, I10 - Essential (primary) hypertension
[2024-12-05 08:20] VITALS: BP 128/80; PULSE 86; RESP 16; TEMP 36.9; O2SAT 99; BMI 45.5
--- OUTSIDE RECORDS SUMMARY | 2024-12-05 08:25 | XMS_ITS | Clinical Summary ---
[facility] Address [address] [place] [address] Care Team Providers Care Heading And Priming Tool Setter Name Role Phone Unavailable Primary Care Provider [...]
--- OUTSIDE RECORDS SUMMARY | 2024-12-05 08:25 | XMS_ITS | Clinical Summary ---
Author Organization [facility] Address [address] [place] [address] Care Team Providers Care Surgery Technician Name Role Phone Unavailable Primary Care Provider [...]
== END 2024-12-05 09:11 | disposition home or self-care (01) ==
LOC: HO.HMCC 08:18
PROVIDERS: PCP Internal Medicine; Visit Provider Internal Medicine
DX: M25.561 Pain in right knee (principal); E66.01 Morbid (severe) obesity due to excess calories; Z68.42 Body mass index [BMI] 45.0-49.9, adult; I10 Essential (primary) hypertension

== ENCOUNTER 2024-12-05 08:17 | Outpatient (REF) | payer OTHER, SELFPAY ==
--- NOTE | ~2024-12-05 | XR_ITS ---
EXAMINATION: XR KNEE 3 VIEWS RIGHT HISTORY: M25.561 - Pain in right knee COMPARISON: Comparison is made with the prior examination dated 09/15/2022. FINDINGS: Three views of the right knee are submitted. Osseous mineralization is normal. There is no fracture or dislocation. There is severe osteoarthritis of the lateral compartment and moderate to severe osteoarthritis of the patellofemoral compartment. Findings have progressed since the prior study. The soft tissues are unremarkable. There is no joint effusion. XR/XR knee RT 3V IMPRESSION: Severe osteoarthritis of the right knee as described, with progression since the prior study. Electronically signed by: Prateek Cornejo MD 12/05/2024 01:25 PM EDT
--- OUTSIDE RECORDS SUMMARY | 2024-12-05 09:45 | XMS_ITS | Clinical Summary ---
Author Organization [facility] Address [address] [place] [address] Care Team Providers Care Automatic Maintainer Name Role Phone Unavailable Primary Care Provider [...]
--- OUTSIDE RECORDS SUMMARY | 2024-12-05 09:45 | XMS_ITS | Clinical Summary ---
Author [facility] Address [address] [place] [address] Care Team Providers Care Green Building Design Specialist Name Role Phone Unavailable Primary Care [...]
[2024-12-05 10:25] LABS: Alanine Aminotransferase 27 U/L (0-31); Anion Gap 12 (12-20); Aspartate Amino Transferase 31 U/L (5-31); Blood Urea Nitrogen 13 mg/dL (9-16); Carbon Dioxide 27 mmol/L (22-29); Chloride 103 mmol/L (96-108); Estimated Glomerular Filt Rate > 60; Glucose Random 77 mg/dL (60-115); Sodium 138 mmol/L (135-145)
== END 2024-12-05 08:18 | disposition home or self-care (01) ==
LOC: HO.HMGCX 08:17
PROVIDERS: PCP Internal Medicine; Visit Provider Internal Medicine
DX: M25.561 Pain in right knee (principal); E66.01 Morbid (severe) obesity due to excess calories; Z68.42 Body mass index [BMI] 45.0-49.9, adult; I10 Essential (primary) hypertension
CPT/HCPCS: 36415; 73562; 80048; 84450; 84460; 96127; 99212

== ENCOUNTER → 2024-12-05 09:25 | Outpatient (BNV) | payer OTHER, SELFPAY | PROVIDERS: PCP Internal Medicine; Visit Provider Radiology Diagnostic Radiology | DX: M25.561 Pain in right knee (principal) | CPT/HCPCS: 73562 ==

== ENCOUNTER 2025-01-04 08:36 | Outpatient (AMB) | payer OTHER, SELFPAY ==
--- NOTE | 2025-01-04 08:39 | AM.OFFWIN_ITS ---
Intake Vital Signs 01/04/25 08:41 Height 5 ft 4 in Weight 271 lb 6 oz BMI 46.6 BP 126/88 Blood Pressure Location Lt brachial Position Sitting Pulse 92 Pulse Source Pulse Oximeter Temp 98.1 F Temp Source Oral Pulse Oximetry (%) 96 Oxygen Delivery Method Room Air Intake Visit Reasons: EP-rt side neck/shoulder pain Intake Note: Pt presents to the office today for c/o right sided necka nd shoulder pain that started yesterday with no known injury. Pt states she was lifting heaving laundry baskets and a few hours after the pain started. Patient Tobacco Use Status: Never used Tobacco Allergies montelukast [From Singulair] Allergy (Severe, Verified 01/04/25 08:45) Anaphylaxis, rash peanut Allergy (Severe, Verified 01/04/25 08:45) Anaphylaxis strawberry Allergy (Verified 01/04/25 08:45) rash wheat Allergy (Verified 01/04/25 08:45) rash lisinopril Adverse Reaction (Verified 01/04/25 08:45) cough milk Adverse Reaction (Verified 01/04/25 08:45) rash soy Adverse Reaction (Verified 01/04/25 08:45) Abdominal Pain eggs Allergy (Uncoded 01/04/25 08:45) rash seafood Adverse Reaction (Uncoded 01/04/25 08:45) rash HPI HPI Comments History of Present Illness Details History of Present Illness - The patient is a 44-year-old female pr esenting with neck and shoulder pain. - The pain began yesterday morning witho ut any known injury. - The patient describes the pain as stif fness and tightness on the right side of the neck and shoulder. - She has tried using a topical pain rel ief balm and one Aleve with minimal relief. - No associated headache was reported. - The patient suspects a muscle spasm as the cause of her symptoms. Physical Exam General: Cooperative, healthy appearing, comfortable, no acute distress and well developed Orientation: Patient oriented x3 Limitations: No limitations Head: Normal to inspection Ears: Hearing grossly normal bilaterally Nose: Normal External nose present Face and sinus: Normal facial exam Eyes: Appearance normal, both eyes and all related structures Neck: Stiffness and tightness on the right side Respiratory: Normal respiratory effort and able to speak in complete sentences. Back/spine: no TTP cervical or thoracic spine, tightness in right trapezius extending from paraspinous muscles to right shoulder Skin: No rashes or lesions noted Neuro: Patient oriented x3 Extremities: Normal to inspection, full ROM right shoulder PFSH Medical History Mixed anxiety and depressive disorder Hx of iron deficiency anemia Osteoarthritis of right knee Iron deficiency anemia Vitamin D deficiency Moderate asthma with allergic rhinitis Asthma Allergic rhinitis Morbid obesity due to excess calories Essential hypertension GERD (gastroesophageal reflux disease) Surgical History History of excision of mass History of tubal ligation Family History Father Colon cancer Mother HTN (hypertension) Stroke Brother Encephalitis Substance use disorder Mental health disorder Brother No problems noted. Daughter No problems noted. Daughter No problems noted. 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 Cognitive needs: No Hearing needs: No Vision needs: No Female Reproductive History Menstrual Age of Menarche: 10 Review of Systems Const All systems reviewed & are unremarkable except as noted in HPI and below Physical Exam Vital Signs: Last Vital Signs Temp 98.1 F 01/04/25 08:41 Pulse 92 01/04/25 08:41 BP 126/88 01/04/25 08:41 Pulse Ox 96 01/04/25 08:41 Oxygen Delivery Method Room Air 01/04/25 08:41 BMI result Body Mass Index 46.6 Assessment & Plan Assessment & Plan (1) Cervical paraspinal muscle spasm: Code(s): M62.838 - Other muscle spasm Plan: Plan - Prescribed 5mg cyclobenzaprine as a muscle relaxant to be taken every 8 hours, with the option to increase to 2 tablets if needed for better relief. - Prescribed naproxen, a stronger dose than [id number] Aleve as she was only taking one tablet, to be taken every 12 hours for the next two to three days. - Recommended the use of heat application to the affected area to aid in muscle relaxation. - Advised against driving or consuming alcohol while taking the muscle relaxant due to its sedative effects. - Suggested considering physical therapy if symptoms persist or recur. Patient was informed and verbally consented to the use of an ambient scribe for clinic note documentation during this visit. (2) Spasm of right trapezius muscle: Code(s): M62.830 - Muscle spasm of back Plan: as above Medications: New cyclobenzaprine 5 mg PO Q8H PRN 20 tabs 0RF Muscle Spasm naproxen 500 mg PO Q12H PRN 20 tabs 0RF pain Coding Level of Care Code Est Pt Level 3 (99864) Diagnoses Cervical paraspinal muscle spasm M62.838 Spasm of right trapezius muscle M62.830
[2025-01-04 08:41] VITALS: BP 126/88; PULSE 92; TEMP 36.7; O2SAT 96; BMI 46.6
--- OUTSIDE RECORDS SUMMARY | 2025-01-04 08:47 | XMS_ITS | Clinical Summary ---
Author Organization [facility] Address [address] [place] [address] Care Team Providers Care Garde Manager Name Role Phone Unavailable Primary Care Provider [...] Colon Cancer Screening (Colonoscopy) 12/09/2023 Influenza Vaccine (Season Ended) 2025 Pneumococcal Vaccine Aged Out No long er eligible based on patient's age to complete this topic RSV Ped < 20 months Aged Out No longe r eligible based on patient's age to complete this topic
== END 2025-01-04 08:56 | disposition home or self-care (01) ==
PROVIDERS: PCP Internal Medicine; Visit Provider Physician Assistant
DX: M62.838 Other muscle spasm (principal); M62.830 Muscle spasm of back

== ENCOUNTER → 2025-01-04 08:36 | Outpatient (BNVA) | payer OTHER, SELFPAY | PROVIDERS: PCP Internal Medicine; Visit Provider Physician Assistant | DX: M62.838 Other muscle spasm (principal); M62.830 Muscle spasm of back | CPT/HCPCS: 99212 ==

== ENCOUNTER 2025-02-06 10:48 | Outpatient (AMB) | payer OTHER, SELFPAY ==
--- NOTE | 2025-02-06 11:09 | MHC.PC.OV ---
Vital Signs 02/06/25 11:10 Height 5 ft 4 in Weight 274 lb BMI 47.0 BP 110/72 Blood Pressure Location Rt brachial Position Sitting Respiration 16 Pulse 83 Pulse Source Pulse Oximeter Temp 98.8 F Temp Source Oral Pulse Oximetry (%) 99 Oxygen Delivery Method Room Air Intake Visit Reasons: 2 months f/up Intake Note: Pt is here today for her 2mo. f/u Allergies montelukast (From Singulair) Allergy (Severe, Verified 02/06/25 11:22) Anaphylaxis, rash peanut Allergy (Severe, Verified 02/06/25 11:22) Anaphylaxis strawberry Allergy (Verified 02/06/25 11:22) rash wheat Allergy (Verified 02/06/25 11:22) rash lisinopril Adverse Reaction (Verified 02/06/25 11:22) cough milk Adverse Reaction (Verified 02/06/25 11:22) rash soy Adverse Reaction (Verified 02/06/25 11:22) Abdominal Pain eggs Allergy (Uncoded 02/06/25 11:22) rash seafood Adverse Reaction (Uncoded 02/06/25 11:22) rash Medication List - Last Reconciled 02/06/25 by Teresa Maddox MD Advair HFA 115-21 mcg/actuation (fluticasone propion-salmeterol) 2 puffs inhalation Q12H 30 days NS amlodipine 5 mg PO DAILY 90 days cetirizine 10 mg PO DAILY cholecalciferol (vitamin D3) 50 mcg PO DAILY cyclobenzaprine 5 mg PO Q8H PRN epinephrine (EpiPen 2-Efren) 0.3 mg (0.3 mL) IM Q15M PRN famotidine 40 mg PO DAILY fluticasone propionate 50 mcg/actuation 1 spray intranasal DAILY PRN hydrochlorothiazide 12.5 mg PO QAM hydroxyzine HCl 25 mg PO BID PRN levonorgestrel (Mirena) intrauterine naproxen 500 mg PO Q12H PRN phentermine 15 mg PO DAILY Ventolin HFA 90 mcg/actuation (albuterol sulfate) 2 inhalations inhalation QID PRN NS Tobacco use date assessed: 02/06/25 Dental Screening Dental Screen Date: 02/06/25 Did you have a dental visit in the last 12 months?: Yes Did you have a dental problem in the last 6 months where you did not have access to dental care?: No Was dental information given to patient?: Patient has dentist HPI 2 months f/up HPI Details 54-year-old lady with hypertension, currently stable and controlled on present treatment with amlodipine 5 mg daily and hydrochlorothiazide 12.5 mg once a day, has history of obesity started on phentermine 15 mg once a day proximally 2 months ago, here today for follow-up on her weight . She has been taking medicine as directed, no adverse effects experience while taking it, has been compliant with her diet and tries to exercise regularly but no significant weight loss noted. [facility] Medical History Mixed anxiety and depressive disorder Hx of iron deficiency anemia Osteoarthritis of right knee Iron deficiency anemia Vitamin D deficiency Moderate asthma with allergic rhinitis Asthma Allergic rhinitis Morbid obesity due to excess calories Essential hypertension GERD (gastroesophageal reflux disease) Surgical History History of excision of mass History of tubal ligation Family History Father Colon cancer Mother HTN (hypertension) Stroke Brother Encephalitis Substance use disorder Mental health disorder Brother No problems noted. Daughter No problems noted. Daughter No problems noted. 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 1. Little interest or pleasure in doing things: not at all 2. Feeling down, depressed, or hopeless: more than half the days 3. Trouble falling or staying asleep, or sleeping too much: not at all 4. Feeling tired or having little energy: more than half the days 5. Poor appetite or overeating: more than half the days 6. Feeling bad about yourself - or that you are a failure or have let yourself or your family down: not at all 7. Trouble concentrating on things, such as reading the newspaper or watching television: not at all 8. Moving or speaking so slowly that other people could have noticed. Or the opposite - being so fidgety or restless that you have been moving around a lot more than usual: not at all 9. Thoughts that you would be better off or of hurting yourself in some way: not at all Total score: 6 Source: Developed by Drs. Prateek Burkett, Lesia Rockwell, Josiah Hernandez and colleagues, with an educational teresa from [employer]. Thrive Questionnaire Date Thrive assessed: 12/05/24 I am a: Patient What is your living situation today?: I choose not to answer this question Within the past 12 months, did the food you bought not last and you didn't have the money to get more?: Sometimes True Within the past 12 months, did you worry whether your food would run out before you got money to buy more?: Sometimes True Do you have trouble paying for medicines?: Yes Do you have trouble getting transportation to medical appointments?: No Do you have trouble paying your heating and electricity bill?: Yes Do you have trouble taking care of your child, family member or friend?: No Do you have trouble with day-to-day activities such as bathing, preparing meals, shopping, managing finances, etc.?: Yes Are you currently unemployed and looking for a job?: I choose not to answer this question Are you interested in more education?: I choose not to answer this question Please select the resources that you would like help with: Food and Utilities Currently or been in a relationship where the following occur: I choose not to answer THRIVE Score: 3 AUDIT C Alcohol Use Questionnaire (AUDIT-C) 1. How often do you have a drink containing alcohol?: Never Total Score: 0 RENETTA-7 AMB Questionnaire RENETTA-7 Date RENETTA - 7 assessed: 12/05/24 Feeling nervous, anxious, or on edge: 0 = Not at all Not being able to stop or control worryin = Not at all Worrying too much about different things: 0 = Not at all Trouble relaxin = Not at all Being so restless that it is hard to sit still: 0 = Not at all Becoming easily annoyed or irritable: 0 = Not at all Feeling afraid as if something awful might happen: 0 = Not at all Total RENETTA-7 score (0-4 normal; 5-9 mild; 10-14 moderate; 15-21 severe): 0 Source: Developed by Drs. Prateek Burkett, Lesia Rockwell, Josiah Hernandez and colleagues, with an educational teresa from [employer]. Review of Systems Const All systems reviewed & are unremarkable except as noted in HPI and below Physical exam (Primary Care) Vital Signs: Last Vital Signs Temp 98.8 F 02/06/25 11:10 Pulse 83 02/06/25 11:10 Resp 16 02/06/25 11:10 BP 110/72 02/06/25 11:10 Pulse Ox 99 02/06/25 11:10 Oxygen Delivery Method Room Air 02/06/25 11:10 BMI result Body Mass Index 47.0 Tobacco/Smoking Status: Tobacco use Status Tobacco use date assessed 02/06/25 02/06/25 11:19 Patient Tobacco Use Status Never used Tobacco 02/06/25 11:19 e-Cigarette/Vaping Use Never Used 02/06/25 11:19 PHQ-9: PHQ-9 Score PHQ-9: Total score 6 02/06/25 11:29 Thrive Assessment: Date of Thrive Assessment Date Thrive assessed 12/05/24 02/06/25 11:19 Currently or been in a relationship where the following occur: I choose not to answer Const General: no acute distress and alert Nutritional Appearance: obese morbidly obese Orientation/consciousness: patient oriented x3 HENMT Face and sinus: Yes face symmetric Mouth: Normal oral and palatal mucosa present, oropharynx normal and moist mucous membranes Eyes General: appearance normal, both eyes and all related structures Neck Neck: Yes full ROM, Yes no lymphadenopathy and Yes supple Resp Auscultation: clear to auscultation bilaterally Cardio Rate: regular rate Rhythm: regular rhythm Heart sounds: S1 normal heart sound present and S2 normal heart sound present GI Inspection: Yes obesity Palpation (GI): Soft to palpation, nontender and no guarding Auscultation: normal bowel sounds General: Yes no CVA tenderness Back/Spine/Pelvis Back: no CVA tenderness Skin Other: sees Dr Rodgers Lesions: no lesions Rashes: no rashes Neuro General: patient oriented x3 Extrem General: Yes no clubbing, cyanosis or edema, Yes normal gait and Yes other (Crepitus positive in knees) Psych Appearance: grossly normal and well kempt Mental Status: mental status grossly normal Speech and movement: Normal speech and movement present Affect: normal affect Attitude: cooperative Thought process: Normal thought process present Results Reviewed Results Reviewed: Name: Olivia Ceron I Age/Sex: 43/F : 1980 Unit#: [id number] Attend Dr: Teresa Maddox MD Re12/05/24 Status: DEP REF Location: [facility] Disch: SPEC : [id number] LELO: 12/05/24 STATUS: COMP REQ : [id number] RECD: 12/05/[address]: Teresa Maddox MD COMP: 12/05/24 ENTERED: 12/05/[address]: ORDERED: BMP, AST, ALT Test Result Flag Reference Sodium 138 135-145 mmol/L Potassium 4.0 3.3-5.1 mmol/L CL 103 96-108 mmol/L CO2 27 22-29 mmol/L Gap 12 12-20 BUN 13 9-16 mg/dL Creat 0.69 0.5-1.4 mg/dL eGFR > 60 Chronic Kidney Disease: Estimated GFR < 60 mL/min/1.73m2 Severe Kidney Disease: Estimated GFR < 15 mL/min/1.73m2 Glucose, Random 77 60-115 mg/dL CA 9.0 8.4-10.2 mg/dL AST (GOT) 31 5-31 U/L ALT (GPT) 27 0-31 U/L Coding Level of Care Code Est Pt Level 4 (26181) Diagnoses Essential hypertension I10 Morbid obesity due to excess calories E66.01 Assessment & Plan Assessment & Plan (1) Essential hypertension: Code(s): I10 - Essential (primary) hypertension Category: Medical Plan: Blood pressure at goal of less than 130/80. Continue with current medication. Reinforced importance of following a low sodium diet, getting regular exercise, and lowering stress levels. (2) Morbid obesity due to excess calories: Comment: with essential HTN Code(s): E66.01 - Morbid (severe) obesity due to excess calories Category: Medical Plan: Stop phentermine 15 mg, new prescription sent for phentermine 30 mg to take 1 capsule once a day 2 hours after breakfast, reinforced importance of following a healthy diet and getting regular exercise, will see her back for follow-up on weight in 1 month Medications: New phentermine must administer 2 hours after breakfast 30 mg PO DAILY 30 caps 0RF E66.01 - Morbid (severe) obesity due to excess calories Discontinued phentermine must administer 2 hours after breakfast Discontinued Reason: Doctor's Order 15 mg PO DAILY 30 caps 1RF E66.01 - Morbid (severe) obesity due to excess calories, I10 - Essential (primary) hypertension
[2025-02-06 11:10] VITALS: BP 110/72; PULSE 83; RESP 16; TEMP 37.1; O2SAT 99; BMI 47.0
--- OUTSIDE RECORDS SUMMARY | 2025-02-06 11:33 | XMS_ITS | Clinical Summary ---
Author Organization [facility] Address [address] [place] [address] Care Team Providers Care Correction Officer Head Name Role Phone Unavailable Primary Care Provider [...] Cancer Screening (Colonoscopy) 12/09/2023 Influenza Vaccine (#1) 2025 Pneumococcal Vaccine Aged Out No long er eligible based on patient's age to complete this topic RSV Ped < 20 months Aged Out No longe r eligible based on patient's age to complete this topic
--- OUTSIDE RECORDS SUMMARY | 2025-02-06 11:33 | XMS_ITS | Clinical Summary ---
Author Organization [facility] it Address [address] [place] [address] Care Team Providers Care Advisor Consultant Name Role Phone Unavailable Primary Care Provider [...] (2023-2 5 season) 2024 Influenza Vaccine (#1) 2025 HIB Vaccines Aged Out No longer [...] 5 Years) and At-Risk Patients (6 to 49 Years) Aged Out No longer eligible b ased on patient's age to complete this topic RSV Immunization Patients Un bob 20 months Aged Out No longer eligible b ased on patient's age to complete this topic Varicella Vaccines Aged Out No longer eligible based on patient's age to complete this topic
== END 2025-02-06 11:38 | disposition home or self-care (01) ==
LOC: HO.HMCC 10:49
PROVIDERS: PCP Internal Medicine; Visit Provider Internal Medicine
DX: I10 Essential (primary) hypertension (principal); E66.01 Morbid (severe) obesity due to excess calories; Z68.42 Body mass index [BMI] 45.0-49.9, adult

== ENCOUNTER → 2025-02-06 10:48 | Outpatient (BNVA) | payer OTHER, SELFPAY | PROVIDERS: PCP Internal Medicine; Visit Provider Internal Medicine | DX: I10 Essential (primary) hypertension (principal); E66.01 Morbid (severe) obesity due to excess calories; Z68.42 Body mass index [BMI] 45.0-49.9, adult | CPT/HCPCS: 99212 ==

== ENCOUNTER 2025-03-12 07:25 | Outpatient (REF) | payer OTHER, SELFPAY ==
[2025-03-12 11:07] LABS: Resp Syncy Virus RNA Qual PCR NEGATIVE (Negative); SARS COV2 PCR INHOUSE NEGATIVE (Negative)
== END 2025-03-12 07:26 | disposition home or self-care (01) ==
LOC: HO.LNP 07:25
PROVIDERS: PCP Internal Medicine; Visit Provider Physician Assistant Medical
DX: R05.1 Acute cough (principal); R09.89 Other specified symptoms and signs involving the circulatory and respiratory systems
CPT/HCPCS: 87637; 99212

== ENCOUNTER 2025-03-12 07:25 | Outpatient (AMB) | payer OTHER, SELFPAY ==
--- OUTSIDE RECORDS SUMMARY | 2025-03-12 07:28 | XMS_ITS | Clinical Summary ---
Author Organization [facility] Address [address] [place] [address] Care Team Providers Care Recordist Chief Name Role Phone Unavailable Primary Care Provider [...]
--- OUTSIDE RECORDS SUMMARY | 2025-03-12 07:28 | XMS_ITS | Clinical Summary ---
Author Organization [facility] it Address [address] [place] [address] Care Team Providers Care Electric Blanket Wirer Name Role Phone Unavailable Primary Care Provider [...] 12/09/1999 COVID-19 Vaccine (2023-2 5 season) 2024 Depression Screening 07/25/2024 Influenza Vaccine (#1) 2025 HIB Vaccines Aged [...]
--- NOTE | 2025-03-12 07:30 | MHC.OFFWIV ---
Intake Vital Signs 03/12/25 07:31 Height 5 ft 4 in Weight 273 lb BMI 46.9 BP 132/90 H Blood Pressure Location Lt brachial Position Sitting Pulse 95 Pulse Source Pulse Oximeter Temp 98.1 F Temp Source Oral Pulse Oximetry (%) 99 Oxygen Delivery Method Room Air Intake Visit Reasons: EP-sob, body weakness Intake Note: presents with SOB, chest tightness, minimal coughing, body fatigue Patient Tobacco Use Status: Never used Tobacco Allergies montelukast (From Singulair) Allergy (Severe, Verified 03/12/25 07:34) Anaphylaxis, rash peanut Allergy (Severe, Verified 03/12/25 07:34) Anaphylaxis strawberry Allergy (Verified 03/12/25 07:34) rash wheat Allergy (Verified 03/12/25 07:34) rash lisinopril Adverse Reaction (Verified 03/12/25 07:34) cough milk Adverse Reaction (Verified 03/12/25 07:34) rash soy Adverse Reaction (Verified 03/12/25 07:34) Abdominal Pain eggs Allergy (Uncoded 02/06/25 11:22) rash seafood Adverse Reaction (Uncoded 02/06/25 11:22) rash Do you need a note to return to daycare/school/sports/work: Yes HPI HPI Comments History of Present Illness Details History of Present Illness - The patient is a 44-year-old Tunisian speaking female 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 - The patient reported chest tightness, which improved with the use of an inhaler, and currently experiences body aches and a dry cough. - She has a history of asthma and uses Ventolin and Advair inhalers, which provide some relief. - The patient denies wheezing and reports no fever or phlegm production with her cough. - She is allergic to Montelukast and uses Zyrtec and Flonase for allergy management. - Has no sick contacts or smoking. - She denies fever, chills, chest pain, SOB, abd pain, n/v/d. Physical Exam General: Cooperative, healthy appearing, comfortable, no acute distress and well developed Orientation: Patient oriented x3 Limitations: No limitations Head: Normal to inspection Ears: Hearing grossly normal bilaterally. TMs are normal. Nose: Normal external nose present Face and sinus: Normal facial exam. No sinus tenderness noted. Eyes: Appearance normal, both eyes and all related structures Neck: Normal visual inspection and Yes full ROM. No lymphadenopathy noted. Respiratory: No use of accessory muscles. No rales, rhonchi, no wheezing Cardiovascular: Regular rate and rhythm. Normal S1 and S2 GI: Normal to inspection. Soft to palpation and nontender. No guarding noted. Skin: No rashes or lesions noted Patient was informed and verbally consented to the use of an ambient scribe for clinic note documentation during this visit. Electrolysis Needle Operator used on the ipad in the office, [place]. [facility] Medical History Mixed anxiety and depressive disorder Hx of iron deficiency anemia Osteoarthritis of right knee Iron deficiency anemia Vitamin D deficiency Moderate asthma with allergic rhinitis Asthma Allergic rhinitis Morbid obesity due to excess calories Essential hypertension GERD (gastroesophageal reflux disease) Surgical History History of excision of mass History of tubal ligation Family History Father Colon cancer Mother HTN (hypertension) Stroke Brother Encephalitis Substance use disorder Mental health disorder Brother No problems noted. Daughter No problems noted. Daughter No problems noted. 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 Cognitive needs: No Hearing needs: No Vision needs: No Female Reproductive History Menstrual Age of Menarche: 10 Review of Systems Const All systems reviewed & are unremarkable except as noted in HPI and below Physical Exam Vital Signs: Last Vital Signs Temp 98.1 F 03/12/25 07:31 Pulse 95 03/12/25 07:31 BP 132/90 H 03/12/25 07:31 Pulse Ox 99 03/12/25 07:31 Oxygen Delivery Method Room Air 03/12/25 07:31 BMI result Body Mass Index 46.9 Assessment & Plan Assessment & Plan (1) Cough: Code(s): R05 - Cough Qualifiers: Cough type: acute Qualified Code(s): R05.1 - Acute cough Plan Most likely URI vs covid vs flu vs asthma exacerbation vs RSV vs allergies Plan - The patient will be tested for COVID-19, influenza, and RSV to rule out infectious causes of respiratory symptoms. - Prescribe prednisone to manage inflammation and improve breathing. - Prescribe guaifenesin for cough management. - Continue current inhaler regimen with Ventolin and Advair. - Advise the use of Zyrtec and Flonase for allergy management. - Provide a work note for absence until Tuesday. Orders: Orders SARS-CoV2/FLU/RSV Today R09.89 - Other specified symptoms and signs involving the circulatory and respiratory systems Medications: New prednisone 40 mg (2 x 20 mg) PO DAILY 10 tabs 0RF 5 days guaifenesin 200 mg (10 mL) PO Q4H PRN 473 mL 0RF cough Refilled fluticasone propionate 50 mcg/actuation administer into each nostril 1 spray intranasal DAILY PRN 16 grams 2RF nasal congestion Coding Level of Care Code Est Pt Level 3 (24142) Diagnoses Acute cough R05.1 Cough type: acute
[2025-03-12 07:31] VITALS: BP 132/90; PULSE 95; TEMP 36.7; O2SAT 99; BMI 46.9
== END 2025-03-12 08:18 | disposition home or self-care (01) ==
PROVIDERS: PCP Internal Medicine; Visit Provider Physician Assistant Medical
DX: R05.1 Acute cough (principal)

== ENCOUNTER 2025-03-14 10:10 | Outpatient (REF) | payer OTHER, SELFPAY ==
[2025-03-15 08:10] LABS: HIV Num 1 0.06 S/CO (0.00-0.99)
== END 2025-03-14 10:11 | disposition home or self-care (01) ==
LOC: HO.HMGCLDS 10:10
PROVIDERS: PCP Internal Medicine; Visit Provider Internal Medicine
DX: Z11.3 Encounter for screening for infections with a predominantly sexual mode of transmission (principal); E66.01 Morbid (severe) obesity due to excess calories; I10 Essential (primary) hypertension; Z68.42 Body mass index [BMI] 45.0-49.9, adult; Z79.52 Long term (current) use of systemic steroids; Z79.899 Other long term (current) drug therapy
CPT/HCPCS: 36415; 87389; 99212

== ENCOUNTER 2025-03-14 10:10 | Outpatient (AMB) | payer OTHER, SELFPAY ==
[2025-03-14 11:17] VITALS: BP 128/88; PULSE 89; RESP 16; TEMP 36.8; O2SAT 100; BMI 46.9
--- NOTE | 2025-03-14 11:17 | A.OFFPC_ITS ---
Vital Signs 03/14/25 11:17 Height 5 ft 4 in Weight 273 lb BMI 46.9 BP 128/88 Blood Pressure Location Lt brachial Position Sitting Respiration 16 Pulse 89 Pulse Source Pulse Oximeter Temp 98.3 F Temp Source Oral Pulse Oximetry (%) 100 Oxygen Delivery Method Room Air Intake Visit Reasons: 1 month f/up-weight Intake Note: Pt is here today for her 1month f/u weight Allergies montelukast (From Singulair) Allergy (Severe, Verified 03/14/25 11:52) Anaphylaxis, rash peanut Allergy (Severe, Verified 03/14/25 11:52) Anaphylaxis strawberry Allergy (Verified 03/14/25 11:52) rash wheat Allergy (Verified 03/14/25 11:52) rash lisinopril Adverse Reaction (Verified 03/14/25 11:52) cough milk Adverse Reaction (Verified 03/14/25 11:52) rash soy Adverse Reaction (Verified 03/14/25 11:52) Abdominal Pain eggs Allergy (Uncoded 03/14/25 11:52) rash seafood Adverse Reaction (Uncoded 03/14/25 11:52) rash Medication List - Last Reconciled 03/14/25 by Teresa Maddox MD Advair HFA 115-21 mcg/actuation (fluticasone propion-salmeterol) 2 puffs inhalation Q12H 30 days NS amlodipine 5 mg PO DAILY 90 days cetirizine 10 mg PO DAILY cholecalciferol (vitamin D3) 50 mcg PO DAILY cyclobenzaprine 5 mg PO Q8H PRN epinephrine (EpiPen 2-Efren) 0.3 mg (0.3 mL) IM Q15M PRN famotidine 40 mg PO DAILY fluticasone propionate 50 mcg/actuation 1 spray intranasal DAILY PRN guaifenesin 200 mg (10 mL) PO Q4H PRN hydrochlorothiazide 12.5 mg PO QAM hydroxyzine HCl 25 mg PO BID PRN levonorgestrel (Mirena) intrauterine naproxen 500 mg PO Q12H PRN phentermine 30 mg PO DAILY prednisone 40 mg (2 x 20 mg) PO DAILY 5 days Ventolin HFA 90 mcg/actuation (albuterol sulfate) 2 inhalations inhalation QID PRN NS Tobacco use date assessed: 03/14/25 Dental Screening Dental Screen Date: 02/06/25 HPI 1 month f/up-weight HPI Details - The patient is a 44-year-old female pr esenting with obesity management and asthma control. - Obesity: Currently on phentermine, on 30 mg Experiences occasional nausea but denies palpitations or headaches. Has reviewed dietary changes, avoiding a lot of fast food and snacking, and has been walking regularly for exercise but has not lost any weight at all - Preventative care: Requested HIV scree neil despite no symptoms or known exposure. [facility] Medical History (Updated 03/14/25 @ 12:21 by Teresa Maddox MD) Presence of Mirena IUD Mixed anxiety and depressive disorder Hx of iron deficiency anemia Osteoarthritis of right knee Vitamin D deficiency Asthma Allergic rhinitis Morbid obesity due to excess calories Essential hypertension GERD (gastroesophageal reflux disease) Surgical History History of excision of mass History of tubal ligation Family History Father Colon cancer Mother HTN (hypertension) Stroke Brother Encephalitis Substance use disorder Mental health disorder Brother No problems noted. Daughter No problems noted. Daughter No problems noted. 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 Cognitive needs: No Hearing needs: No Vision needs: No Female Reproductive History Menstrual Age of Menarche: 10 Questionnaire Thrive Questionnaire Date Thrive assessed: 02/06/25 I am a: Patient What is your living situation today?: I choose not to answer this question Within the past 12 months, did the food you bought not last and you didn't have the money to get more?: Sometimes True Within the past 12 months, did you worry whether your food would run out before you got money to buy more?: Sometimes True Do you have trouble paying for medicines?: Yes Do you have trouble getting transportation to medical appointments?: No Do you have trouble paying your heating and electricity bill?: Yes Do you have trouble taking care of your child, family member or friend?: No Do you have trouble with day-to-day activities such as bathing, preparing meals, shopping, managing finances, etc.?: Yes Are you currently unemployed and looking for a job?: I choose not to answer this question Are you interested in more education?: I choose not to answer this question Currently or been in a relationship where the following occur: I choose not to answer THRIVE Score: 3 RENETTA-7 AMB Questionnaire RENETTA-7 Date RENETTA - 7 assessed: 12/05/24 Source: Developed by Drs. Prateek Burkett, Lesia Rockwell, Josiah Hernandez and colleagues, with an educational teresa from [employer]. Review of Systems Const All systems reviewed & are unremarkable except as noted in HPI and below Physical exam (Primary Care) Vital Signs: Last Vital Signs Temp 98.3 F 03/14/25 11:17 Pulse 89 03/14/25 11:17 Resp 16 03/14/25 11:17 BP 128/88 03/14/25 11:17 Pulse Ox 100 03/14/25 11:17 Oxygen Delivery Method Room Air 03/14/25 11:17 BMI result Body Mass Index 46.9 Tobacco/Smoking Status: Tobacco use Status Tobacco use date assessed 03/14/25 03/14/25 11:24 Patient Tobacco Use Status Never used Tobacco 03/14/25 11:24 e-Cigarette/Vaping Use Never Used 03/14/25 11:24 Thrive Assessment: Date of Thrive Assessment Date Thrive assessed 02/06/25 03/14/25 11:24 Currently or been in a relationship where the following occur: I choose not to answer Const General: no acute distress and alert Nutritional Appearance: obese morbidly obese Orientation/consciousness: patient oriented x3 HENMT Face and sinus: Yes face symmetric Neck Neck: Yes full ROM, Yes no lymphadenopathy and Yes supple Resp Auscultation: clear to auscultation bilaterally Cardio Rate: regular rate Rhythm: regular rhythm Heart sounds: S1 normal heart sound present and S2 normal heart sound present GI Inspection: Yes obesity Palpation (GI): Soft to palpation, nontender and no guarding Auscultation: normal bowel sounds Skin Other: sees Dr Rodgers Lesions: no lesions Rashes: no rashes Neuro General: patient oriented x3 Extrem General: Yes no clubbing, cyanosis or edema, Yes normal gait and Yes other (Crepitus positive in knees) Psych Appearance: grossly normal and well kempt Mental Status: mental status grossly normal Speech and movement: Normal speech and movement present Affect: normal affect Coding Level of Care Code Est Pt Level 4 (09572) Diagnoses Morbid obesity due to excess calories E66.01 Screening examination for STI Z11.3 Essential hypertension I10 Assessment & Plan Assessment & Plan (1) Morbid obesity due to excess calories: Comment: with essential HTN Code(s): E66.01 - Morbid (severe) obesity due to excess calories Category: Medical (2) Screening examination for STI: Code(s): Z11.3 - Encounter for screening for infections with a predominantly sexual mode of transmission (3) Essential hypertension: Code(s): I10 - Essential (primary) hypertension Category: Medical Plan The patient's phentermine dosage was increased to 37.5 mg , and advised to adhere to healthy eating habits and do at least 15 minutes of moderate intensity exercise daily, not just walking, with a follow-up scheduled in one month to assess efficacy and side effects. If weight loss remains inadequate, consideration will be given to initiating GLP-1 receptor agonist therapy. . An HIV screening was requested by the patient and ordered during the visit. Hypertension is controlled on hydrochlorothiazide Patient was informed and verbally consented to the use of an ambient scribe for clinic note documentation during this visit. Orders: Orders HIV Ab/Ag Today Z11.3 - Encounter for screening for infections with a predominantly sexual mode of transmission Medications: New phentermine must administer 30 minutes before or 1-2 hours after breakfast 37.5 mg PO DAILY 30 caps 0RF E66.01 - Morbid (severe) obesity due to excess calories Discontinued phentermine must administer 2 hours after breakfast Discontinued Reason: Doctor's Order 30 mg PO DAILY 30 caps 0RF E66.01 - Mo rbid (severe) obesity due to excess calories
--- OUTSIDE RECORDS SUMMARY | 2025-03-14 11:39 | XMS_ITS | Clinical Summary ---
Author Organization [facility] it Address [address] [place] [address] Care Team Providers Care Greeting Card Editor Name Role Phone Unavailable Primary Care Provider [...]
--- OUTSIDE RECORDS SUMMARY | 2025-03-14 11:39 | XMS_ITS | Clinical Summary ---
Author Organization [facility] Address [address] [place] [address] Care Team Providers Care Chainstitch Seat Joiner Name Role Phone Unavailable Primary Care Provider [...]
== END 2025-03-14 12:04 | disposition home or self-care (01) ==
LOC: HO.HMCC 10:11
PROVIDERS: PCP Internal Medicine; Visit Provider Internal Medicine
DX: I10 Essential (primary) hypertension (principal); E66.01 Morbid (severe) obesity due to excess calories; Z68.42 Body mass index [BMI] 45.0-49.9, adult; Z11.3 Encounter for screening for infections with a predominantly sexual mode of transmission

== ENCOUNTER 2025-03-19 07:26 | Outpatient (AMB) | payer OTHER, SELFPAY ==
--- OUTSIDE RECORDS SUMMARY | 2025-03-19 07:28 | XMS_ITS | Clinical Summary ---
Author Organization [facility] it Address [address] [place] [address] Care Team Providers Care Oxygen Tank Filler Name Role Phone Unavailable Primary Care Provider [...]
--- OUTSIDE RECORDS SUMMARY | 2025-03-19 07:28 | XMS_ITS | Clinical Summary ---
Author Organization [facility] Address [address] [place] [address] Care Team Providers Care Healthcare Management Consultant Name Role Phone Unavailable Primary Care [...]
--- NOTE | 2025-03-19 07:35 | MHC.OFFWIV ---
Intake Vital Signs 03/19/25 07:37 Height 5 ft 4 in Weight 273 lb BMI 46.9 BP 110/70 Blood Pressure Location Lt radial Position Sitting Respiration 15 Pulse 105 H Pulse Source Pulse Oximeter Temp 98.3 F Temp Source Oral Pulse Oximetry (%) 98 Oxygen Delivery Method Room Air Intake Visit Reasons: sore throat body pain headache ear pain Intake Note: Pt is here today c/o sore throat/H/A and Rt ear pain since yesterday: Patient Tobacco Use Status: Never used Tobacco Allergies montelukast (From Singulair) Allergy (Severe, Verified 03/19/25 07:42) Anaphylaxis, rash peanut Allergy (Severe, Verified 03/19/25 07:42) Anaphylaxis strawberry Allergy (Verified 03/19/25 07:42) rash wheat Allergy (Verified 03/19/25 07:42) rash lisinopril Adverse Reaction (Verified 03/19/25 07:42) cough milk Adverse Reaction (Verified 03/19/25 07:42) rash soy Adverse Reaction (Verified 03/19/25 07:42) Abdominal Pain eggs Allergy (Uncoded 03/19/25 07:42) rash seafood Adverse Reaction (Uncoded 03/19/25 07:42) rash HPI HPI Comments History of Present Illness Details History - The patient is a 44-year-old female presenting with a sore throat, cough, and ear pain. - The sore throat began yesterday and is accompanied by a mild cough. - She was seen here last week for cough and congestion. - The patient reports ear pain on the left with no improvement in symptoms. - She has pain when she swallows and she has a pain in the neck on the left side. - The patient denies taking any medication for the sore throat due to cost concerns. - She denies fever, chills, sick contacts, or travel. Physical Exam General: Cooperative, healthy appearing, comfortable and no acute distress Orientation/consciousness: Patient oriented x3 Limitations: No limitations Ears: Hearing grossly normal bilaterally, external ears normal and TM's normal bilaterally. Patient reports ear pain. Nose: Normal external nose present, normal nares present, and no nasal discharge present. Face and sinus: Sinuses tender to palpation. Mouth: Normal oral and palatal mucosa present and moist mucous membranes noted. Throat: Tonsils normal. Uvula is midline. Posterior oropharynx with erythema and no exudates. Patient reports sore throat. Eyes: Appearance normal, both eyes and all related structures Neck: Normal visual inspection, full ROM. No lymphadenopathy noted. Respiratory: Clear to auscultation bilaterally. Normal respiratory effort, able to speak in complete sentences. No respiratory distress, not tachypneic, no tripod positioning and no use of accessory muscles. Cardiovascular: Regular rate and rhythm. Normal S1 and S2 Skin: No rashes or lesions noted Patient was informed and verbally consented to the use of an ambient scribe for clinic note documentation during this visit [facility] Medical History (Updated 03/14/25 @ 12:21 by Teresa Maddox MD) Presence of Mirena IUD Mixed anxiety and depressive disorder Hx of iron deficiency anemia Osteoarthritis of right knee Vitamin D deficiency Asthma Allergic rhinitis Morbid obesity due to excess calories Essential hypertension GERD (gastroesophageal reflux disease) Surgical History History of excision of mass History of tubal ligation Family History Father Colon cancer Mother HTN (hypertension) Stroke Brother Encephalitis Substance use disorder Mental health disorder Brother No problems noted. Daughter No problems noted. Daughter No problems noted. 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 Cognitive needs: No Hearing needs: No Vision needs: No Female Reproductive History Menstrual Age of Menarche: 10 Review of Systems Const All systems reviewed & are unremarkable except as noted in HPI and below Physical Exam Vital Signs: Last Vital Signs Temp 98.3 F 03/19/25 07:37 Pulse 105 H 03/19/25 07:37 Resp 15 03/19/25 07:37 BP 110/70 03/19/25 07:37 Pulse Ox 98 03/19/25 07:37 Oxygen Delivery Method Room Air 03/19/25 07:37 BMI result Body Mass Index 46.9 Results AMB Rapid Strep AMB Rapid Strep Negative Last Edit by Sarina Lui CMA on 03/19/25 07:48 Results Reviewed Results Reviewed: Laboratory Last Values Strep Scn Rapid Clinic Negative 03/19/25 07:45 Assessment & Plan Assessment & Plan (1) Sore throat: Code(s): J02.9 - Acute pharyngitis, unspecified Plan Most likely viral illness vs strep vs flu vs covid Rapid strep is negative plan - tylenol or motrin as needed - salt water gargles - diet as tolerated - will give her a work note for today - A viral panel will be conducted to identify any viral infections. - The patient will be contacted with the results of the viral panel. Orders: Orders Resp Pathogen Panel - [facility] Today J06.9 - Acute upper respiratory infection, unspecified AMB Rapid Strep Screen Today Z13.9 - Encounter for screening, unspecified Coding Level of Care Code Est Pt Level 3 (20042) Diagnoses Sore throat J02.9
[2025-03-19 07:37] VITALS: BP 110/70; PULSE 105; RESP 15; TEMP 36.8; O2SAT 98; BMI 46.9
== END 2025-03-19 07:58 | disposition home or self-care (01) ==
PROVIDERS: PCP Internal Medicine; Visit Provider Physician Assistant Medical
DX: J02.9 Acute pharyngitis, unspecified (principal); Z13.9 Encounter for screening, unspecified

== ENCOUNTER 2025-03-19 07:26 | Outpatient (REF) | payer OTHER, SELFPAY ==
[2025-03-19 11:36] LABS: Chlamydia pneumoniae PCR Not Detected (Not Detect.); Coronavirus 229E PCR Not Detected (Not Detect.); Coronavirus HKU1 PCR Not Detected (Not Detect.); Coronavirus NL63 PCR Not Detected (Not Detect.); Coronavirus OC43 PCR Not Detected (Not Detect.); RSV PCR Not Detected (Not Detect.); Rhino/Enterovirus PCR Not Detected (Not Detect.)
[2025-03-19 11:56] LABS: Influenza A H1 PCR Not Detected (Not Detect.); Influenza A H1-2009 PCR Not Detected (Not Detect.); Influenza A H3 PCR Not Detected (Not Detect.); SARS-CoV-2 PCR Not Detected (Not Detect.)
== END 2025-03-19 07:27 | disposition home or self-care (01) ==
LOC: HO.LNP 07:26
PROVIDERS: PCP Internal Medicine; Visit Provider Physician Assistant Medical
DX: J02.9 Acute pharyngitis, unspecified (principal); R05.9 Cough, unspecified; R51.9 Headache, unspecified; H92.02 Otalgia, left ear
CPT/HCPCS: 87633; 87880; 99212

== ENCOUNTER → 2025-04-12 08:43 | Outpatient (BNVA) | payer OTHER, SELFPAY | PROVIDERS: PCP Internal Medicine | DX: Z01.30 Encounter for examination of blood pressure without abnormal findings (principal) | CPT/HCPCS: 99211 ==

== ENCOUNTER 2025-04-16 08:39 | Outpatient (AMB) | payer OTHER, SELFPAY ==
[2025-04-16 08:40] VITALS: BP 128/88; PULSE 108; RESP 16; TEMP 36.7; O2SAT 96; BMI 46.9
--- NOTE | 2025-04-16 08:40 | AM.OFFWIN_ITS ---
Intake Vital Signs 04/16/25 08:40 Height 5 ft 4 in Weight 273 lb BMI 46.9 BP 128/88 Blood Pressure Location Lt brachial Position Sitting Respiration 16 Pulse 108 H Pulse Source Pulse Oximeter Temp 98.0 F Temp Source Oral Pulse Oximetry (%) 96 Oxygen Delivery Method Room Air Intake Visit Reasons: ep oaib headache and ear pain Patient Tobacco Use Status: Never used Tobacco Allergies montelukast (From Singulair) Allergy (Severe, Verified 04/16/25 08:41) Anaphylaxis, rash peanut Allergy (Severe, Verified 04/16/25 08:41) Anaphylaxis strawberry Allergy (Verified 04/16/25 08:41) rash wheat Allergy (Verified 04/16/25 08:41) rash lisinopril Adverse Reaction (Verified 04/16/25 08:41) cough milk Adverse Reaction (Verified 04/16/25 08:41) rash soy Adverse Reaction (Verified 04/16/25 08:41) Abdominal Pain eggs Allergy (Uncoded 04/02/25 09:05) rash seafood Adverse Reaction (Uncoded 04/02/25 09:05) rash HPI HPI Comments History of Present Illness Details History - The patient is a 44-year-old female pr esenting with left-sided facial pain, BARBER and sinus pressure. - The patient reports facial pain and pr essure on the left side, starting yesterday, with associated symptoms of congestion and mild cough. - The patient denies any previous histor y of sinus infections. - The patient has a history of asthma, w ith occasional breathing difficulties, and uses an albuterol inhaler as needed. She has one at home. - The patient received a new prescriptio n for an albuterol inhaler yesterday. - Has taken tylenol with mild relief of BARBER Physical Exam General: Cooperative, healthy appearing, comfortable and no acute distress Orientation/consciousness: Patient oriented x3 Limitations: No limitations Head: Normal to inspection Ears: Hearing grossly normal bilaterally, external ears normal and TM's normal bilaterally Nose: Normal external nose present, Normal nares present and No nasal discharge present Face and sinus: Normal facial exam and Yes frontal and maxillary sinuses tender Mouth: Normal oral and palatal mucosa present and moist mucous membranes Throat: Yes tonsils normal, Yes uvula midline. Posterior oropharynx erythema, no exudates Eyes: Appearance normal, both eyes and all related structures Neck: Normal visual inspection, full ROM Respiratory: Clear to auscultation bilaterally. Normal respiratory effort, able to speak in complete sentences, Actively coughing, no respiratory distress, not tachypneic, no tripod positioning and no use of accessory muscles Cardiovascular: Regular rate and rhythm. Normal S1 and S2 Skin: No rashes or lesions noted Neuro: Patient oriented x3 Extremities: Normal to inspection and Yes no clubbing, cyanosis or edema Review of Systems - General: Reports feeling hot and cold at night - Respiratory: Reports mild cough and co ngestion, denies wheezing or significant dyspnea - ENT: Reports left-sided facial pain an d pressure, denies changes in hearing All systems reviewed and are unremarkable except as noted in HPI PENDING SALE TO [facility] Medical History (Updated 04/16/25 @ 09:01 by Maday Pelayo PA-C) Presence of Mirena IUD Mixed anxiety and depressive disorder Hx of iron deficiency anemia Osteoarthritis of right knee Vitamin D deficiency Asthma Allergic rhinitis Morbid obesity due to excess calories Essential hypertension GERD (gastroesophageal reflux disease) Surgical History History of excision of mass History of tubal ligation Family History Father Colon cancer Mother HTN (hypertension) Stroke Brother Encephalitis Substance use disorder Mental health disorder Brother No problems noted. Daughter No problems noted. Daughter No problems noted. 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 Cognitive needs: No Hearing needs: No Vision needs: No Female Reproductive History Menstrual Age of Menarche: 10 Physical Exam Vital Signs: Last Vital Signs Temp 98.0 F 04/16/25 08:40 Pulse 108 H 04/16/25 08:40 Resp 16 04/16/25 08:40 BP 128/88 04/16/25 08:40 Pulse Ox 96 04/16/25 08:40 Oxygen Delivery Method Room Air 04/16/25 08:40 BMI result Body Mass Index 46.9 Assessment & Plan Assessment & Plan (1) URI, acute: Code(s): J06.9 - Acute upper respiratory infection, unspecified Plan: Plan Patient was informed and verbally consented to the use of an ambient scribe for clinic note documentation during this visit. - VSS, pt well appearing and PE remarkable for sinus tenderness. - Sent viral panel - Recommended use of a neti pot with distilled water for sinus irrigation to alleviate pressure. - Prescribed prednisone 20 mg daily for five days to reduce inflammation and facilitate drainage. - Advised use of Flonase (fluticasone) nasal spray twice daily to manage symptoms. - Confirmed availability of albuterol inhaler for use as needed for asthma symptoms, if they develop. Orders: Orders Resp Pathogen Panel - [facility] Today J06.9 - Acute upper respiratory infection, unspecified Medications: New prednisone 20 mg PO QAM 5 tabs 0RF Discontinued prednisone Discontinued Reason: Doctor's Order 40 mg (2 x 20 mg) PO DAILY 5 days 10 tabs 0RF Coding Level of Care Code Est Pt Level 3 (11500) Diagnoses URI, acute J06.9
--- OUTSIDE RECORDS SUMMARY | 2025-04-16 09:41 | XMS_ITS | Clinical Summary ---
Author Organization [facility] Address [address] [place] [address] Care Team Providers Care Soap Mixer Name Role Phone Unavailable Primary Care Provider [...]
--- OUTSIDE RECORDS SUMMARY | 2025-04-16 09:41 | XMS_ITS | Clinical Summary ---
[facility] Address [address] [place] [address] Care Team Providers Care Ornamental Painter Name Role Phone Unavailable Primary Care Provider [...] Cervical Cancer Screening: P ap Smear 12/09/1999 Depression Screening 07/25/2024 COVID-19 Vaccine ( - 2023-2 5 season) 2025 Influenza Vaccine (#1) 2025 HIB Vaccines Aged [...]
== END 2025-04-16 09:00 | disposition home or self-care (01) ==
PROVIDERS: PCP Internal Medicine; Visit Provider Physician Assistant
DX: J06.9 Acute upper respiratory infection, unspecified (principal)

== ENCOUNTER 2025-04-16 08:39 | Outpatient (REF) | payer OTHER, SELFPAY ==
[2025-04-16 13:30] LABS: Chlamydia pneumoniae PCR Not Detected (Not Detect.); Coronavirus 229E PCR Not Detected (Not Detect.); Coronavirus HKU1 PCR Not Detected (Not Detect.); Coronavirus NL63 PCR Not Detected (Not Detect.); Coronavirus OC43 PCR Not Detected (Not Detect.); RSV PCR Not Detected (Not Detect.); Rhino/Enterovirus PCR Detected (Not Detect.)
[2025-04-16 13:53] LABS: Influenza A H1 PCR Not Detected (Not Detect.); Influenza A H1-2009 PCR Not Detected (Not Detect.); Influenza A H3 PCR Not Detected (Not Detect.); SARS-CoV-2 PCR Not Detected (Not Detect.)
== END 2025-04-16 08:40 | disposition home or self-care (01) ==
LOC: HO.LAB 08:39
PROVIDERS: Physician Assistant; PCP Internal Medicine
DX: J06.9 Acute upper respiratory infection, unspecified (principal)
CPT/HCPCS: 87633; 99212

== ENCOUNTER 2025-04-23 09:09 | Outpatient (AMB) | payer OTHER, SELFPAY ==
--- OUTSIDE RECORDS SUMMARY | 2025-04-23 09:54 | XMS_ITS | Clinical Summary ---
Author Organization [facility] Address [address] [place] [address] Care Team Providers Care Panel Edge Painter Name Role Phone Unavailable Primary Care [...]
--- OUTSIDE RECORDS SUMMARY | 2025-04-23 09:54 | XMS_ITS | Clinical Summary ---
Author Organization [facility] ity Address [address] [place] [address] Care Team Providers Care Voltage Tester Name Role Phone Unavailable Primary Care Provider [...] 5 season) 2025 Influenza Vaccine (#1) 2025 RSV Immunization Adult Patie nts (1 - 1-dose 75+ series) 2053 HIB Vaccines Aged Out No longer eligi [...]
--- NOTE | 2025-04-23 10:08 | MHC.PC.OV ---
Vital Signs 04/23/25 10:10 Height 5 ft 4 in Weight 273 lb BMI 46.9 BP 130/82 Blood Pressure Location Lt brachial Position Sitting Pulse 90 Pulse Source Pulse Oximeter Pulse Oximetry (%) 98 Oxygen Delivery Method Room Air Intake Visit Reasons: 1 month f/up Allergies montelukast (From Singulair) Allergy (Severe, Verified 04/23/25 10:26) Anaphylaxis, rash peanut Allergy (Severe, Verified 04/23/25 10:26) Anaphylaxis strawberry Allergy (Verified 04/23/25 10:26) rash wheat Allergy (Verified 04/23/25 10:26) rash lisinopril Adverse Reaction (Verified 04/23/25 10:26) cough milk Adverse Reaction (Verified 04/23/25 10:26) rash soy Adverse Reaction (Verified 04/23/25 10:26) Abdominal Pain eggs Allergy (Uncoded 04/23/25 10:26) rash seafood Adverse Reaction (Uncoded 04/23/25 10:26) rash Medication List - Last Reconciled 04/23/25 by Teresa Maddox MD Advair HFA 115-21 mcg/actuation (fluticasone propion-salmeterol) 2 puffs inhalation Q12H 30 days NS amlodipine 5 mg PO DAILY 90 days cetirizine 10 mg PO DAILY cholecalciferol (vitamin D3) 50 mcg PO DAILY epinephrine (EpiPen 2-Efren) 0.3 mg (0.3 mL) IM Q15M PRN famotidine 40 mg PO DAILY fluticasone propionate 50 mcg/actuation 1 spray intranasal DAILY PRN hydrochlorothiazide 12.5 mg PO QAM hydroxyzine HCl 25 mg PO BID PRN levonorgestrel (Mirena) intrauterine naproxen 500 mg PO Q12H PRN phentermine 37.5 mg PO DAILY Ventolin HFA 90 mcg/actuation (albuterol sulfate) 2 inhalations inhalation QID PRN NS Tobacco use date assessed: 03/14/25 Dental Screening Dental Screen Date: 02/06/25 HPI 1 month f/up HPI Details The patient is a 44-year-old female with history of hypertension, asthma arthritis, osteoarthritis in both knees, , presenting today for follow-up on obesity management She has been taking phentermine , but reports no change in her weight despite adherence to the medication regimen. She maintains a healthy diet , cutting back on portions during mealtimes, drinks mainly water , and has been trying to do at least 15 minutes of exercise daily, and taking phentermine as directed, but her weight remains unchanged. REPLACED BY [facility] Medical History (Updated 04/28/25 @ 01:50 by Teresa Maddox MD) Lipoma of upper extremity Osteoarthritis of both knees Presence of Mirena IUD Mixed anxiety and depressive disorder Hx of iron deficiency anemia Osteoarthritis of right knee Vitamin D deficiency Asthma Allergic rhinitis Morbid obesity due to excess calories Essential hypertension GERD (gastroesophageal reflux disease) Surgical History History of excision of mass History of tubal ligation Family History Father Colon cancer Mother HTN (hypertension) Stroke Brother Encephalitis Substance use disorder Mental health disorder Brother No problems noted. Daughter No problems noted. Daughter No problems noted. 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 1. Little interest or pleasure in doing things: not at all 2. Feeling down, depressed, or hopeless: more than half the days 3. Trouble falling or staying asleep, or sleeping too much: not at all 4. Feeling tired or having little energy: more than half the days 5. Poor appetite or overeating: more than half the days 6. Feeling bad about yourself - or that you are a failure or have let yourself or your family down: not at all 7. Trouble concentrating on things, such as reading the newspaper or watching television: not at all 8. Moving or speaking so slowly that other people could have noticed. Or the opposite - being so fidgety or restless that you have been moving around a lot more than usual: not at all 9. Thoughts that you would be better off or of hurting yourself in some way: not at all Total score: 6 Depression Screening Interpretation: Negative Depression Screening Done: Yes 74511 - PHQ-9 Billing: Yes Source: Developed by Drs. Prateek Burkett, Lesia Rockwell, Josiah Hernandez and colleagues, with an educational teresa from [employer]. Thrive Questionnaire Date Thrive assessed: 02/06/25 I am a: Patient What is your living situation today?: I choose not to answer this question Within the past 12 months, did the food you bought not last and you didn't have the money to get more?: Sometimes True Within the past 12 months, did you worry whether your food would run out before you got money to buy more?: Sometimes True Do you have trouble paying for medicines?: Yes Do you have trouble getting transportation to medical appointments?: No Do you have trouble paying your heating and electricity bill?: Yes Do you have trouble taking care of your child, family member or friend?: No Do you have trouble with day-to-day activities such as bathing, preparing meals, shopping, managing finances, etc.?: Yes Are you currently unemployed and looking for a job?: I choose not to answer this question Are you interested in more education?: I choose not to answer this question Currently or been in a relationship where the following occur: I choose not to answer THRIVE Score: 3 AUDIT C Alcohol Use Questionnaire (AUDIT-C) 1. How often do you have a drink containing alcohol?: Monthly or less 2. How many drinks containing alcohol do you have on a typical day when you are drinking?: 1 or 2 3. How often do you have six or more drinks on one occasion?: Monthly Total Score: 3 Score Reviewed/Action Taken: Yes RENETTA-7 AMB Questionnaire RENETTA-7 Date RENETTA - 7 assessed: 12/05/24 Feeling nervous, anxious, or on edge: 0 = Not at all Not being able to stop or control worryin = Not at all Worrying too much about different things: 0 = Not at all Trouble relaxin = Not at all Being so restless that it is hard to sit still: 0 = Not at all Becoming easily annoyed or irritable: 0 = Not at all Feeling afraid as if something awful might happen: 0 = Not at all Total RENETTA-7 score (0-4 normal; 5-9 mild; 10-14 moderate; 15-21 severe): 0 Source: Developed by Drs. Prateek Burkett, Lesia Rockwell, Josiah Hernandez and colleagues, with an educational teresa from [employer]. Review of Systems Const Reports as per HPI, Reports no additional complaints and Denies weakness Eyes Denies change in vision ENT Denies vertigo and Denies dizziness Card Denies chest pain, Denies syncope, Denies irregular heart rhythm and Denies palpitations Resp Reports as per HPI GI Reports as per HPI and Reports no additional complaints Reports as per HPI Musc Reports as per HPI, Denies joint swelling and Denies limited range of motion Neuro Denies vertigo, Denies dizziness, Denies syncope, Denies focal weakness and Denies weakness Psych Reports no additional complaints Endo Reports no additional complaints and Denies palpitations Jese/Lymph Reports no additional complaints Aller/Immun Reports no additional complaints Physical exam (Primary Care) Vital Signs: Last Vital Signs Pulse 90 04/23/25 10:10 BP 130/82 04/23/25 10:10 Pulse Ox 98 04/23/25 10:10 Oxygen Delivery Method Room Air 04/23/25 10:10 BMI result Body Mass Index 46.9 Tobacco/Smoking Status: Tobacco use Status Tobacco use date assessed 03/14/25 04/23/25 10:08 Patient Tobacco Use Status Never used Tobacco 04/23/25 10:08 e-Cigarette/Vaping Use Never Used 04/23/25 10:08 PHQ-9: PHQ-9 Score PHQ-9: Total score 6 04/23/25 10:54 Depression Screening Interpretation: Negative Thrive Assessment: Date of Thrive Assessment Date Thrive assessed 02/06/25 04/23/25 10:08 Currently or been in a relationship where the following occur: I choose not to answer Const General: no acute distress and alert Nutritional Appearance: obese morbidly obese Orientation/consciousness: patient oriented x3 HENMT Face and sinus: Yes face symmetric Neck Neck: Yes full ROM, Yes no lymphadenopathy and Yes supple Resp Auscultation: clear to auscultation bilaterally Cardio Rate: regular rate Rhythm: regular rhythm Heart sounds: S1 normal heart sound present and S2 normal heart sound present GI Inspection: Yes obesity Palpation (GI): Soft to palpation, nontender and no guarding Auscultation: normal bowel sounds Skin Other: sees Dr Rodgers Lesions: no lesions Rashes: no rashes Neuro General: patient oriented x3 Extrem General: Yes no clubbing, cyanosis or edema, Yes normal gait and Yes other (Crepitus positive in knees) Psych Appearance: grossly normal and well kempt Mental Status: mental status grossly normal Speech and movement: Normal speech and movement present Affect: normal affect Coding Level of Care Code Est Pt Level 4 (91037) Diagnoses Morbid obesity due to excess calories E66.01 Essential hypertension I10 Osteoarthritis of both knees M17.0 Moderate asthma with allergic rhinitis without complication, unspecified whether persistent J45.909 Asthma persistence: unspecified Asthma complication type: uncomplicated Additional Codes PHQ-9 - 67033 - PHQ-9 Billing: Yes ([id number]) Assessment & Plan Assessment & Plan (1) Morbid obesity due to excess calories: Comment: with essential HTN Code(s): E66.01 - Morbid (severe) obesity due to excess calories Category: Medical Plan: Had an unsuccessful weight loss with using phentermine despite adherence to recommended diet and getting regular exercise., prescription sent for Zepbound 2.5 mg injected subcutaneously once a week. Patient given instructions on how to administer the medication, possible side effects that she might encounter which includes nausea, abdominal bloating, either diarrhea or constipation, and decrease risk for gallstones . Will see her back for follow-up in 1 month after starting Zepbound (2) Essential hypertension: Code(s): I10 - Essential (primary) hypertension Category: Medical Plan: Blood pressure at goal of less than 130/80. Continue with amlodipine 5 mg daily and hydrochlorothiazide 12.5 mg in the morning. Reinforced importance of following a low sodium diet, getting regular exercise, and lowering stress levels. (3) Osteoarthritis of both knees: Code(s): M17.0 - Bilateral primary osteoarthritis of knee Category: Medical Plan: Weight loss recommended, takes naproxen as needed for pain (4) Moderate asthma with allergic rhinitis: Code(s): J45.40 - Moderate persistent asthma, uncomplicated Category: Medical Qualifiers: Asthma persistence: unspecified Asthma complication type: uncomplicated Qualified Code(s): J45.909 - Unspecified asthma, uncomplicated Plan: Continued on Advair HFA 115-21 mcg per actuation, to use as directed. Medications: New Zepbound (tirzepatide (weight loss)) 2.5 mg (0.5 mL) subcut QWEEK 2 mL 1RF 1 month NS E66.01 - Morbid (severe) obesity due to excess calories, I10 - Essential (primary) hypertension, M17.0 - Bilateral primary osteoarthritis of knee
[2025-04-23 10:10] VITALS: BP 130/82; PULSE 90; O2SAT 98; BMI 46.9
== END 2025-04-23 12:20 | disposition home or self-care (01) ==
LOC: HO.HMCC 09:10
PROVIDERS: PCP Internal Medicine; Visit Provider Internal Medicine
DX: I10 Essential (primary) hypertension (principal); E66.01 Morbid (severe) obesity due to excess calories; Z68.42 Body mass index [BMI] 45.0-49.9, adult; M17.0 Bilateral primary osteoarthritis of knee; J45.909 Unspecified asthma, uncomplicated

== ENCOUNTER → 2025-04-23 09:09 | Outpatient (BNVA) | payer OTHER, SELFPAY | PROVIDERS: PCP Internal Medicine; Visit Provider Internal Medicine | DX: I10 Essential (primary) hypertension (principal); E66.01 Morbid (severe) obesity due to excess calories; M17.0 Bilateral primary osteoarthritis of knee; J45.40 Moderate persistent asthma, uncomplicated; Z68.42 Body mass index [BMI] 45.0-49.9, adult | CPT/HCPCS: 96127; 99212 ==

== ENCOUNTER → 2025-05-17 09:43 | Outpatient (BNVA) | payer OTHER, SELFPAY | PROVIDERS: PCP Internal Medicine | DX: Z01.30 Encounter for examination of blood pressure without abnormal findings (principal); I10 Essential (primary) hypertension | CPT/HCPCS: 99211 ==

== ENCOUNTER 2025-07-10 10:58 | Outpatient (AMB) | payer OTHER, SELFPAY ==
[2025-07-10 11:06] VITALS: BP 124/80; PULSE 84; RESP 16; TEMP 36.8; O2SAT 98; BMI 45.8
--- NOTE | 2025-07-10 11:06 | A.OFFPC_ITS ---
Vital Signs 07/10/25 11:06 Height 5 ft 4 in Weight 267 lb BMI 45.8 BP 124/80 Blood Pressure Location Lt brachial Position Sitting Respiration 16 Pulse 84 Pulse Source Pulse Oximeter Temp 98.2 F Temp Source Oral Pulse Oximetry (%) 98 Oxygen Delivery Method Room Air Intake Visit Reasons: weight loss follow up Intake Note: Pt is here today for her weight loss f/u Environmental Engineering Aide Required: No Allergies montelukast (From Singulair) Allergy (Severe, Verified 07/10/25 11:15) Anaphylaxis, rash peanut Allergy (Severe, Verified 07/10/25 11:15) Anaphylaxis strawberry Allergy (Verified 07/10/25 11:15) rash wheat Allergy (Verified 07/10/25 11:15) rash lisinopril Adverse Reaction (Verified 07/10/25 11:15) cough milk Adverse Reaction (Verified 07/10/25 11:15) rash soy Adverse Reaction (Verified 07/10/25 11:15) Abdominal Pain eggs Allergy (Uncoded 07/10/25 11:15) rash seafood Adverse Reaction (Uncoded 07/10/25 11:15) rash Medication List - Last Reconciled 07/10/25 by Teresa Maddox MD Advair HFA 115-21 mcg/actuation (fluticasone propion-salmeterol) 2 puffs inhalation Q12H 30 days NS amlodipine 5 mg PO DAILY 90 days cetirizine 10 mg PO DAILY cholecalciferol (vitamin D3) 50 mcg PO DAILY epinephrine (EpiPen 2-Efren) 0.3 mg (0.3 mL) IM Q15M PRN famotidine 40 mg PO DAILY fluticasone propionate 50 mcg/actuation 1 spray intranasal DAILY PRN hydrochlorothiazide 12.5 mg PO QAM hydroxyzine HCl 25 mg PO BID PRN levonorgestrel (Mirena) intrauterine naproxen 500 mg PO Q12H PRN Ventolin HFA 90 mcg/actuation (albuterol sulfate) 2 inhalations inhalation QID PRN NS Zepbound (tirzepatide (weight loss)) 5 mg (0.5 mL) subcut QWEEK NS Tobacco use date assessed: 07/10/25 Dental Screening Dental Screen Date: 07/10/25 Did you have a dental visit in the last 12 months?: Yes Did you have a dental problem in the last 6 months where you did not have access to dental care?: No Was dental information given to patient?: Patient has dentist HPI weight loss follow up HPI Details The patient is a 44-year-old female presenting for a follow-up visit for weight loss management. She started Zepbound in March for weight loss and has lost 6 pounds, with her weight decreasing from 273 to 267 pounds, but has not experienced any further weight loss since May. The patient reports that Zepbound helps suppress her appetite and she engages in exercise. She experiences nausea with the medication, which has now resolved, but no other side effects. She does not receive the flu shot due to an allergy. [facility] Medical History Lipoma of upper extremity Osteoarthritis of both knees Presence of Mirena IUD Mixed anxiety and depressive disorder Hx of iron deficiency anemia Osteoarthritis of right knee Vitamin D deficiency Asthma Allergic rhinitis Morbid obesity due to excess calories Essential hypertension GERD (gastroesophageal reflux disease) Surgical History History of excision of mass History of tubal ligation Family History Father Colon cancer Mother HTN (hypertension) Stroke Brother Encephalitis Substance use disorder Mental health disorder Brother No problems noted. Daughter No problems noted. Daughter No problems noted. 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 1. Little interest or pleasure in doing things: not at all 2. Feeling down, depressed, or hopeless: more than half the days 3. Trouble falling or staying asleep, or sleeping too much: not at all 4. Feeling tired or having little energy: more than half the days 5. Poor appetite or overeating: more than half the days 6. Feeling bad about yourself - or that you are a failure or have let yourself or your family down: not at all 7. Trouble concentrating on things, such as reading the newspaper or watching television: not at all 8. Moving or speaking so slowly that other people could have noticed. Or the opposite - being so fidgety or restless that you have been moving around a lot more than usual: not at all 9. Thoughts that you would be better off or of hurting yourself in some way: not at all Total score: 6 Depression Screening Interpretation: Negative Depression Screening Done: Yes Source: Developed by Drs. Prateek Burkett, Josiah Borrego and colleagues, with an educational teresa from [employer]. Thrive Questionnaire Date Thrive assessed: 02/06/25 I am a: Patient What is your living situation today?: I choose not to answer this question Within the past 12 months, did the food you bought not last and you didn't have the money to get more?: Sometimes True Within the past 12 months, did you worry whether your food would run out before you got money to buy more?: Sometimes True Do you have trouble paying for medicines?: Yes Do you have trouble getting transportation to medical appointments?: No Do you have trouble paying your heating and electricity bill?: Yes Do you have trouble taking care of your child, family member or friend?: No Do you have trouble with day-to-day activities such as bathing, preparing meals, shopping, managing finances, etc.?: Yes Are you currently unemployed and looking for a job?: I choose not to answer this question Are you interested in more education?: I choose not to answer this question Currently or been in a relationship where the following occur: I choose not to answer THRIVE Score: 3 RENETTA-7 AMB Questionnaire RENETTA-7 Date RENETTA - 7 assessed: 12/05/24 Source: Developed by Drs. Prateek Burkett, Josiah Borrego and colleagues, with an educational teresa from [employer]. Review of Systems Const Reports no additional complaints Eyes Denies change in vision ENT Denies vertigo and Denies dizziness Card Denies chest pain, Denies syncope, Denies irregular heart rhythm and Denies palpitations Resp Reports as per HPI GI Reports as per HPI and Reports no additional complaints Reports as per HPI Musc Reports as per HPI, Denies joint swelling and Denies limited range of motion Neuro Denies vertigo, Denies dizziness, Denies syncope and Denies focal weakness Psych Reports no additional complaints Endo Reports no additional complaints and Denies palpitations Jese/Lymph Reports no additional complaints Aller/Immun Reports no additional complaints Physical exam (Primary Care) Vital Signs: Last Vital Signs Temp 98.2 F 07/10/25 11:06 Pulse 84 07/10/25 11:06 Resp 16 07/10/25 11:06 BP 124/80 07/10/25 11:06 Pulse Ox 98 07/10/25 11:06 Oxygen Delivery Method Room Air 07/10/25 11:06 BMI result Body Mass Index 45.8 Tobacco/Smoking Status: Tobacco use Status Tobacco use date assessed 07/10/25 07/10/25 11:13 Patient Tobacco Use Status Never used Tobacco 07/10/25 11:13 e-Cigarette/Vaping Use Never Used 07/10/25 11:13 Depression Screening Interpretation: Negative Thrive Assessment: Date of Thrive Assessment Date Thrive assessed 02/06/25 07/10/25 11:13 Currently or been in a relationship where the following occur: I choose not to answer Const General: no acute distress and alert Nutritional Appearance: obese morbidly obese Orientation/consciousness: patient oriented x3 HENMT Face and sinus: Yes face symmetric Neck Neck: Yes full ROM, Yes no lymphadenopathy and Yes supple Resp Auscultation: clear to auscultation bilaterally Cardio Rate: regular rate Rhythm: regular rhythm Heart sounds: S1 normal heart sound present and S2 normal heart sound present GI Inspection: Yes obesity Palpation (GI): Soft to palpation, nontender and no guarding Auscultation: normal bowel sounds Skin Other: sees Dr Rodgers Neuro General: patient oriented x3, gait normal and no focal motor deficits Extrem General: Yes no clubbing, cyanosis or edema, Yes normal gait and Yes other (Crepitus positive in knees) Psych Appearance: grossly normal and well kempt Mental Status: mental status grossly normal Speech and movement: Normal speech and movement present Affect: normal affect Coding Level of Care Code Est Pt Level 4 (56709) Diagnoses Morbid obesity due to excess calories E66.01 Essential hypertension I10 Assessment & Plan Assessment & Plan (1) Morbid obesity due to excess calories: Comment: with essential HTN Code(s): E66.01 - Morbid (severe) obesity due to excess calories Category: Medical Plan: She has had suboptimal weight loss of only 6 pounds since starting Zepbound in March, with no weight loss since May. Increased Zepbound to 7.5 mg weekly. The patient was counseled that insurance coverage for this medication will end in July.. She was advised on dietary modifications to manage nausea, including eating simple soup and avoiding fried foods or tomatoes on the injection day. If insurance coverage ceases, she was advised to can explore alternative online weight loss programs like [employer] that offer GLP-1 medications, acknowledging this would be an [id number] expense. (2) Essential hypertension: Code(s): I10 - Essential (primary) hypertension Category: Medical Plan: Blood pressure at goal of less than 130/80. Continue with hydrochlorothiazide 12.5 taken daily in the morning together amlodipine 5 mg once a day. Reinforced importance of following a low sodium diet, getting regular exercise, and lowering stress levels. Orders: Orders Basic Metabolic Panel Fasting 03/25/26 I10 - Essential (primary) hypertension, E66.01 - Morbid (severe) obesity due to excess calories, Z97.5 - Presence of (intrauterine) contraceptive device, Z13.220 - Encounter for screening for lipoid disorders, Z13.1 - Encounter for screening for diabetes mellitus Aspartate Amino Transferase 03/25/26 I10 - Essential (primary) hypertension, E66.01 - Morbid (severe) obesity due to excess calories, Z97.5 - Presence of (intrauterine) contraceptive device, Z13.220 - Encounter for screening for lipoid disorders, Z13.1 - Encounter for screening for diabetes mellitus Alanine Aminotransferase 03/25/26 I10 - Essential (primary) hypertension, E66.01 - Morbid (severe) obesity due to excess calories, Z97.5 - Presence of (intrauterine) contraceptive device, Z13.220 - Encounter for screening for lipoid disorders, Z13.1 - Encounter for screening for diabetes mellitus Lipid Panel 03/25/26 I10 - Essential (primary) hypertension, E66.01 - Morbid (severe) obesity due to excess calories, Z97.5 - Presence of (intrauterine) con traceptive device, Z13.220 - Encounter for screening for lipoid disorders, Z13.1 - Encounter for screening for diabetes mellitus Vitamin D 25-OH Total 03/25/26 I10 - Essential (primary) hypertension, E66.01 - Morbid (severe) obesity due to excess calories, Z97.5 - Presence of (intrauterine) contraceptive device, Z13.220 - Encounter for screening for lipoid disorders, Z13.1 - Encounter for screening for diabetes mellitus Hemoglobin and Hematocrit 03/25/26 I10 - Essential (primary) hypertension, E66.01 - Morbid (severe) obesity due to excess calories, Z97.5 - Presence of (intrauterine) contraceptive device, Z13.220 - Encounter for screening for lipoid disorders, Z13.1 - Encounter for screening for diabetes mellitus Medications: Changed From Zepbound 5 mg (0.5 mL) subcut QWEEK 2 mL 3RF NS E66.01 - Morbid (severe) obesity due to excess calories, M17.0 - Bilateral primary osteoarthritis of knee, I10 - Essential (primary) hypertension To tirzepatide (weight loss) 7.5 mg (0.5 mL) subcut QWEEK 2 mL 0RF E66.01 - Morbid (severe) obesity due to excess calories, M17.0 - Bilateral primary osteoarthritis of knee, I10 - Essential (primary) hypertension
--- OUTSIDE RECORDS SUMMARY | 2025-07-10 14:26 | XMS_ITS | Clinical Summary ---
Author Organization [facility] Address [address] [place] [address] Phone Care Team Providers Care Mechanism Inspector Name Role Phone Teresa Maddox MD Primary Care Provider [phone] Allergies Active Allergy Reactions Criticality Noted Date Comments Lisinopril 05/30/2025 Montelukast 05/30/2025 Encounters Date Type Department Care Team Description 05/30/2025 8:34 PM EST - 05/30/2025 9:12 PM EST Emergency [facility] Emergency [address] [place] [address] Side effect of medication (Primary Dx); Dizzy; Hypokalemia Discharge Disposition: Home or Self Care from Last 3 Months Medical History Medical History Date Comments Asthma Hypertension Arthritis Social History Tobacco Use Types Packs/Day Years Used Date Smoking Tobacco: Never Assessed Comments Unknown Sex and Gender Information Value Date Recorded Sex Assigned at Not on file Legal Sex Female 11:10 AM EST Gender Identity Not on file Sexual Orientation Not on file Last Filed Vital Signs Vital Sign Reading Time Taken Comments Blood Pressure 156/74 05/30/2025 7:03 PM EST Pulse 94 05/30/2025 8:49 PM EST Temperature 36.5 C (97.7 F) 05/30/2025 7:03 PM EST Respiratory Rate 16 05/30/2025 8:49 PM EST Oxygen Saturation 99% 05/30/2025 8:49 PM EST Inhaled Oxygen Concentration - - Weight 122 kg (270 lb) 05/30/2025 7:03 PM EST Height 162.6 cm (5' 4 ) 05/30/2025 7:03 PM EST Body Mass Index 46.35 05/30/2025 7:03 PM EST Plan of Treatment Health Maintenance Due Date Last Done Comments Breast Cancer Screening 1978 Colorectal Cancer Screening: Colonoscopy 1978 DTaP,Tdap,and Td Vaccines (1 - Tdap) 1997 Pneumococcal Vaccine: Pediatrics (0 to 5 Years) and At-Risk Patients (6 to 49 Years) (1 of 2 - PCV) 1997 Cervical Cancer Screening: Pap Smear 12/09/1999 Depression Screening 07/25/2024 COVID-19 Vaccine ( - 2024- season) 2025 05/27/2022, 04/17/2021, 03/19/2021, Additional history exists Influenza Vaccine (#1) 2025 Cholesterol Screening (Lipid Panel) 05/30/2025 HIV Screening 05/30/2025 Hepatitis C Screening 05/30/2025 Social Influencers of Health Screening 05/30/2025 Hypertension/CHF/CAD Annual BMP Blood Test 05/30/2026 05/30/2025 RSV Immunization Adult Patients (1 - 1-dose 75+ series) 2053 Hepatitis B Vaccines Completed 07/10/2021, 02/12/2021, 01/13/2021 HIB Vaccines Aged Out No longer eligi [...] to complete this topic RSV Immunization Patients Under 20 months Aged Out No longer eligible based on patient's age to complete this topic Varicella Vaccines Aged Out No longer eligible based on patient's age to complete this topic Procedures Procedure Name Priority Date/Time Associated Diagnosis Comments ECG ANNOTATED 05/31/2025 CBC WITH AUTO DIFFERENTIAL STAT 05/30/2025 7:23 PM EST HCG, SERUM, QUALITATIVE STAT 05/30/2025 7:23 PM EST TROPONIN I HIGH SENSITIVITY STAT 05/30/2025 7:23 PM EST BASIC METABOLIC PANEL STAT 05/30/2025 7:23 PM EST CBC AND DIFFERENTIAL STAT 05/30/2025 7:23 PM EST ECG 12-LEAD STAT 05/30/2025 7:14 PM EST from Last 3 Months Results * ECG-Annotated (05/31/2025) us Provider Onbase MD ECG ORDERABLES Final Result * Troponin I high sensitivity (05/30/2025 7:23 PM EST) Pathologist [facility] High Sensitivity Troponin I 4 <=54 ng/L LAB CHEMISTRY METHOD 05/30/2025 8:05 PM EST [facility] Blood Venous blood specimen / Unknown Venipuncture / Unknown 05/30/2025 7:23 PM EST 05/30/2025 7:33 PM EST Narrative [facility] - 05/30/2025 8:05 PM EST High levels of biotin in samples may falsely decrease hsTroponin values. Use caution when interpreting hsTroponin results in patients taking biotin who exhibit renal impairment (eGFR <60) or in patients taking more than 20 mg/day of biotin. us Beth ARRINGTON LAB BLOOD ORDERABLES Final Res ult [facility] [address] [place] [address], * (ABNORMAL) CBC auto differential (05/30/2025 7:23 PM EST) Pathologist [facility] WBC 11.2(H) 4.8 - 10.8 K/[facility] LAB HEMETOLOGY METHOD 05/30/2025 7:38 PM [facility] RBC 4.60 3.80 - 4.80 M/mcL LAB HEMETOLOGY METHOD 05/30/2025 7:38 PM [facility] Hemoglobin 12.9 11.5 - 16.0 g/dL LAB HEMETOLOGY METHOD 05/30/2025 7:38 PM [facility] Hematocrit 38.7 35.0 - 47.0 % LAB HEMETOLOGY METHOD 05/30/2025 7:38 PM [facility] MCV 84.5 79.0 - 98.0 FL LAB HEMETOLOGY METHOD 05/30/2025 7:38 PM [facility] MCH 28.2 27.0 - 32.0 pcg LAB HEMETOLOGY METHOD 05/30/2025 7:38 PM [facility] MCHC 33.3 32.0 - 37.0 g/dL LAB HEMETOLOGY METHOD 05/30/2025 7:38 PM [facility] RDW 13.8 11.0 - 15.0 % LAB HEMETOLOGY METHOD 05/30/2025 7:38 PM [facility] Platelets 387 130 - 400 K/mcL LAB HEMETOLOGY METHOD 05/30/2025 7:38 PM [facility] MPV 9.3 7.0 - 11.0 FL LAB HEMETOLOGY METHOD 05/30/2025 7:38 PM [facility] NRBC 0.0 <1.0 % LAB HEMETOLOGY METHOD 05/30/2025 7:38 PM [facility] NRBC Absolute 0.00 <0.10 K/mcL LAB HEMETOLOGY METHOD 05/30/2025 7:38 PM [facility] Neutrophils Relative 52.0 % LAB HEMETOLOGY METHOD 05/30/2025 7:38 PM [facility] Lymphocytes Relative 39.0 % LAB HEMETOLOGY METHOD 05/30/2025 7:38 PM [facility] Monocytes Relative 6.8 % LAB HEMETOLOGY METHOD 05/30/2025 7:38 PM [facility] Eosinophils Relative 1.3 % LAB HEMETOLOGY METHOD 05/30/2025 7:38 PM [facility] Basophils Relative 0.5 % LAB HEMETOLOGY METHOD 05/30/2025 7:38 PM [facility] Immature Granulocytes Relative 0.4 % LAB HEMETOLOGY METHOD 05/30/2025 7:38 PM [facility] Neutrophils Absolute 5.80 1.50 - 7.00 K/mcL LAB HEMETOLOGY METHOD 05/30/2025 7:38 PM [facility] Lymphocytes Absolute 4.35 1.00 - 5.00 K/mcL LAB HEMETOLOGY METHOD 05/30/2025 7:38 PM [facility] Monocytes Absolute 0.76 0.20 - 1.00 K/mcL LAB HEMETOLOGY METHOD 05/30/2025 7:38 PM [facility] Eosinophils Absolute 0.15 0.00 - 0.50 K/mcL LAB HEMETOLOGY METHOD 05/30/2025 7:38 PM [facility] Basophils Absolute 0.06 0.00 - 0.20 K/mcL LAB HEMETOLOGY METHOD 05/30/2025 7:38 PM [facility] Immature Granulocytes Absolute 0.04(H) 0.00 - 0.03 K/mcL LAB HEMETOLOGY METHOD 05/30/2025 7:38 PM [facility] Blood Venous blood specimen / Unknown Venipuncture / Unknown 05/30/2025 7:23 PM EST 05/30/2025 7:33 PM EST us Beth ARRINGTON LAB BLOOD ORDERABLES Final Res ult [facility] [address] [place] [address], [place] [phone] * hCG, serum, qualitative (05/30/2025 7:23 PM EST) [facility] hCG Qual Negative Negative 05/30/2025 8:30 PM [facility] Blood Venous blood specimen / Unknown Venipuncture / Unknown 05/30/2025 7:23 PM EST 05/30/2025 7:33 PM EST us Beth ARRINGTON LAB BLOOD ORDERABLES Final Res ult Performing Organization Address [facility]/ZIP Co de Phone Number [facility] [address] [place] [address], [place] [phone] * (ABNORMAL) Basic metabolic panel (05/30/2025 7:23 PM EST) [facility] Sodium 137 133 - 145 mmol/L LAB CHEMISTRY METHOD 05/30/2025 8:01 PM [facility] Potassium 3.2(L) 3.5 - 5.5 mmol/L LAB CHEMISTRY METHOD 05/30/2025 8:01 PM [facility] Chloride 103 96 - 110 mmol/L LAB CHEMISTRY METHOD 05/30/2025 8:01 PM [facility] CO2 28 21 - 32 mmol/L LAB CHEMISTRY METHOD 05/30/2025 8:01 PM [facility] Anion Gap 6 3 - 11 LAB CHEMISTRY METHOD 05/30/2025 8:01 PM [facility] Glucose 129(H) 70 - 100 mg/dL LAB CHEMISTRY METHOD 05/30/2025 8:01 PM [facility] BUN 20 5 - 25 mg/dL LAB CHEMISTRY METHOD 05/30/2025 8:01 PM [facility] Creatinine 0.86 0.50 - 1.10 mg/dL LAB CHEMISTRY METHOD 05/30/2025 8:01 PM EST [facility] eGFR 84 >=60 mL/min/1. 73m2 LAB CHEMISTRY METHOD 05/30/2025 8:01 PM EST [facility] Comment:Calculation based on the Chronic Kidney Disease Epidemiology Collaboration (CKD-EPI) equation refit without adjustment for race. BUN/Creatinine Ratio 23.3 LAB CHEMISTRY METHOD 05/30/2025 8:01 PM EST [facility] Calcium 9.2 8.5 - 10.5 mg/dL LAB CHEMISTRY METHOD 05/30/2025 8:01 PM EST [facility] Blood Venous blood specimen / Unknown Venipuncture / Unknown 05/30/2025 7:23 PM EST 05/30/2025 7:34 PM EST Beth ARRINGTON LAB BLOOD ORDERABLES Final Res ult [facility] [address] [place] [address], [place] [phone] * ECG 12 lead (05/30/2025 7:14 PM EST) Ventricular Rate ECG 118 BPM GEMUSE Atrial Rate 118 BPM GEMUSE P-R Interval 162 ms GEMUSE QRS Duration 90 ms GEMUSE Q-T Interval 332 ms GEMUSE QTc 465 ms GEMUSE P Wave [place] 52 degrees GEMUSE R [place] 8 degrees GEMUSE T [place] 52 degrees GEMUSE ECG Interpretation Sinus tachycardia Possible Left atrial enlargement Minimal voltage criteria for LVH, may be normal variant ( R in aVL ) When compared with ECG of 06-JUN-2019 17:20, No significant change was found Confirmed by TONY RAMIREZ ([id number]) on 05/31/2025 8:28:37 AM GEMUSE 05/30/2025 7:14 PM EST 05/31/2025 8:28 AM EST Beth ARRINGTON ECG ORDERABLES Final Result GEMUSE from Last 3 Months Insurance [facility] [employer] Care Teams Mechanism Inspector Relationship Specialty Start Date End Date Teresa Maddox MD [address] [place] [address] PCP - General Internal Medicine 05/30/25
--- OUTSIDE RECORDS SUMMARY | 2025-07-10 14:26 | XMS_ITS | Clinical Summary ---
Author Organization [facility] Prior to 12/22/24 Address [address] [place] [address] Care Team Providers Care Marine Steward Name Role Phone Unavailable Primary Care Provider [...]
== END 2025-07-10 11:51 | disposition home or self-care (01) ==
LOC: HO.HMCC 10:58
PROVIDERS: PCP Internal Medicine; Visit Provider Internal Medicine
DX: E66.01 Morbid (severe) obesity due to excess calories (principal); I10 Essential (primary) hypertension

== ENCOUNTER → 2025-07-10 10:58 | Outpatient (BNVA) | payer OTHER, SELFPAY | PROVIDERS: PCP Internal Medicine; Visit Provider Internal Medicine | DX: E66.01 Morbid (severe) obesity due to excess calories (principal); I10 Essential (primary) hypertension; Z97.5 Presence of (intrauterine) contraceptive device; Z68.42 Body mass index [BMI] 45.0-49.9, adult | CPT/HCPCS: 99212 ==